=== PATIENT | female | born 1985 | race Caucasian/White ===

== ENCOUNTER 2017-07-13 21:16 | Emergency (ER) | payer OTHER, SELFPAY ==
[2017-07-13 21:33] VITALS: BP 119/81; PULSE 77; RESP 16; TEMP 36.8; O2SAT 99; BMI 27.3
--- NOTE | 2017-07-13 21:54 | PC.NURSE ---
reports a dull ache chest pain feeling right of medial behind breast. denies sob, vision changes, n/v/d. normal sinus rhythm
[2017-07-14 00:10] VITALS: BP 118/77; PULSE 82
[2017-07-14 00:13] VITALS: TEMP 36.5
--- NOTE | 2017-07-14 00:36 | ED_ITS ---
HPI - Chest Pain General Chief Complaint: Chest Pain Stated Complaint: CHEST DISCOMFORT RIGHT BREAST IS PLUGGED BREAST AK History of Present Illness HPI narrative: HPI 31-year-old female presents for evaluation of one day of intermittent, fleeting , sharp right sided chest/breast pain in the setting of 2+ days of concern for clogged right breast duct with right lateral nodular firmness and scant blood in her breast milk. Patient reports that 3 days ago she a 24-hour period of nausea, vomiting, diarrhea that self resolved. Patient reports that she has been massaging her right breast, using warm compresses, and expressing/pumping will with improving symptoms. Medical history is notable for anticardiolipin antibody disease requiring heparin during but no further interventions. Patient denies a history of DVT, PE, hemoptysis, mobilization, leg swelling, calf pain, leg trauma. M/S/F/SocHx notable for: please see HPI; remainder reviewed with patient and in chart. ROS: Negative constitutional, eye, cardiovascular, pulmonary, GI, , MSK, skin , neurologic, psychiatric, endocrine unless noted in the HPI. Exam Gen: Pleasant, non-toxic appearing, resting comfortably. HEENT: NC, AT, PEERL, EOMI. Resp: Clear to auscultation bilaterally, normal work of breathing, no accessory muscle usage. Card: Regular rate and rhythm with no murmurs, rubs, or gallops, extremities warm and well perfused. No chest wall tenderness palpation. GI: Non-tender to palpation throughout all quadrants, no focal tenderness at McBurney's point, negative Whatley's sign, non-distended, no rebound or guarding. : No suprapubic tenderness to palpation. MSK/skin: chaperoned exam with visually normal right breast. Breast exam notable for a palpable subcutaneous linear cord like structure that is mildly tender but is without palpable warmth, crepitus, or fluctuance is on the right set of breast extending towards aerola. No breast discharge. Vascular: both calves of equal size and nontender to palpation bilaterally. Neuro: AO x 3, no facial asymmetry, vision and hearing WNL. Psych: Mood and affect appropriate. Labs / Imaging: EKG: SR 83 bpm, no NH segment depressions, QRS 87 ms, no ST segment elevations or depressions, no LBBB. MDM Previous chart, nursing note, labs, imaging, and vitals reviewed. A: 31-year-old female presents for evaluation of one day of intermittent, fleeting, sharp right sided chest/breast pain in the setting of 2+ days of concern for clogged right breast duct with right lateral nodular firmness and scant blood in her breast milk. DDx & Evaluation: exam is consistent with a history of blood breast duct, no evidence of a galactocele or mastitis. With respect to alternate causes of the paitent's chest pain the history (very brief, sharp right sided stabbing chest wall pain) is highly inconsistent with ACS, pericarditis, or myocarditis; given the lack of further risk factors no further investigations presently warranted. EKG obtained by nursing protocol prior to evaluation, press enter equal bilaterally, no evidence of pulmonary infection, doubt PE. Patient discharged with instructions to use NSAIDs, warm compresses, and continue expressing milk and to follow-up with her PCP as needed. Impression: point breast duct. (please reference below for remainder of encounter information) PERC negative (age >= 50 - N, HR >= 100 - N, SaO2 < 95 - N, prior DVT - N, trauma or surgery in last 4 weeks - N, hemoptysis - N, exogenous estrogen - N, unilateral leg swelling - N). Related Data Previous Rx's Medication Instructions Recorded progesterone micronized 100 mg PO BID #60 cap 04/10/17 Allergies Allergy/AdvReac Type Severity Reaction Status Date / Time codeine [CODEINE] Allergy Intermediate Unverified 06/06/17 12:22 PENDING SALE TO [facility] Social History Smoking Status: Never smoker Exam Initial Vital Signs Initial Vital Signs: Vital Signs Temperature 98.3 F 07/13/17 21:33 Pulse Rate 77 07/13/17 21:33 Respiratory Rate 16 07/13/17 21:33 Blood Pressure 119/81 H 07/13/17 21:33 Pulse Oximetry 99 07/13/17 21:33 Course Vital Signs - 8 hr 07/13/17 21:33 07/14/17 00:10 07/14/17 00:13 Temperature 98.3 F 97.7 F Pulse Rate 77 82 Respiratory Rate 16 Blood Pressure 119/81 H Blood Pressure [Right Arm] 118/77 Pulse Oximetry 99 Discharge Plan Departure Prescriptions: No Action progesterone micronized 100 MG capsule 100 mg PO BID Qty: 60 RF: 3
== END 2017-07-14 00:46 | disposition home or self-care (01) ==
PROVIDERS: Emergency Provider Emergency Medicine; Family Provider Obstetrics & Gynecology; PCP Obstetrics & Gynecology
DX: N64.89 Other specified disorders of breast (principal)
CPT/HCPCS: 93005; 99282

== ENCOUNTER 2017-07-14 14:36 | Observation (INO) | payer OTHER, SELFPAY ==
--- NOTE | 2017-07-14 14:39 | ED.ABDPAIN ---
HPI - Abdominal Pain <DIONNA Fierro - Last Filed: 07/14/17 22:09> General Chief Complaint: Abdominal Pain Stated Complaint: 'SEVERE ABD PAIN' Time Seen by Provider: 07/14/17 14:39 History of Present Illness HPI narrative: 31-year-old female here for complaint of having pain into her right upper quadrant/epigastric area over the past few days. She reports increased pain to that area after eating. She had some aches this morning when pain came on and worsened earlier today. She denies any fevers or chills. No nausea or vomiting. She denies any urinary symptoms. Last bowel movement was yesterday and was normal. She denies any flank pain. She denies any trauma to the abdominal area. No other concerns or complaints. Related Data Previous Rx's Medication Instructions Recorded hydromorphone 2 mg PO Q4H PRN #20 tab MDD Six 07/15/17 ondansetron 4 mg PO Q6H PRN #10 tab MDD 4 07/15/17 pantoprazole 40 mg PO DAILY #30 tab 07/28/17 Allergies Allergy/AdvReac Type Severity Reaction Status Date / Time codeine [CODEINE] AdvReac Severe Anaphylaxis Verified 07/28/17 16:54 Review of Systems <DIONNA Fierro - Last Filed: 07/14/17 22:09> Constitutional Denies chills, Denies fever(s), Denies lethargy and Denies weakness Eyes Denies change in vision, Denies eye discharge, Denies irritation and Denies loss of vision Cardiovascular Denies chest pain, Denies irregular heart rhythm, Denies lightheadedness, Denies palpitations, Denies dyspnea, Denies dyspnea on exertion and Denies orthopnea Respiratory Denies cough, Denies dyspnea, Denies dyspnea on exertion and Denies wheezing Gastrointestinal Gastrointestinal: Reports abdominal pain Genitourinary Denies hematuria, Denies flank pain, Denies urinary incontinence and Denies urinary urgency Integumentary/Breasts Denies pruritus, Denies erythema, Denies rash and Denies wounds Neurologic Denies loss of vision and Denies weakness Endocrine Denies palpitations Allergic/Immunologic Denies wheezing Exam <DIONNA Fierro - Last Filed: 07/14/17 22:09> Initial Vital Signs Initial Vital Signs: Vital Signs Temperature 98.2 F 07/14/17 15:03 Pulse Rate 100 H 07/14/17 15:03 Respiratory Rate 14 07/14/17 15:03 Blood Pressure 126/79 H 07/14/17 15:03 Pulse Oximetry 100 07/14/17 15:03 Const General: cooperative and well developed Nutritional Appearance: well nourished Orientation: alert, awake, oriented x3 and not confused [facility] Mouth: oral mucosae normal and moist mucous membranes Eyes General: appearance normal, both eyes and all related structures Eyelids: eyelids normal Conjunctivae: conjunctivae normal Sclera: sclerae normal Pupils: PERRL EOM: EOM intact bilaterally Resp Effort & Inspection: normal respiratory effort, able to speak in complete sentences, no respiratory distress and no use of accessory muscles Auscultation: clear to auscultation bilaterally, no rales, no rhonchi and no wheezes Cardio Rate: regular rate Rhythm: regular rhythm Heart Sounds: no click, no gallops, no murmurs and no rubs GI Inspection: normal to inspection Palpation: soft, No guarding, No hernia, No mass, No pulsatile mass and tender (Tenderness to epigastric area) Auscultation: normal bowel sounds General: No CVA tenderness Skin General: no rashes or lesions noted, No jaundice and No petechiae <Silvano Guevara DO - Last Filed: 08/02/17 07:35> Initial Vital Signs Initial Vital Signs: Vital Signs Temperature 98.2 F 07/14/17 15:03 Pulse Rate 100 H 07/14/17 15:03 Respiratory Rate 14 07/14/17 15:03 Blood Pressure 126/79 H 07/14/17 15:03 Pulse Oximetry 100 07/14/17 15:03 Course <DIONNA Fierro - Last Filed: 07/14/17 22:09> Orders Ordered: Discontinued Medications Acetaminophen (Tylenol) 325 mg PO NOW PRN PRN Reason: Pain, Mild Albuterol (Ventolin) 2.5 mg INH NOW PRN PRN Reason: Coughing, Wheezing, Dyspnea Bupivacaine HCl (Sensorcaine 0.5% (Pf)) 30 ml INJ NOW ONE Stop: 07/15/17 11:18 Last Admin: 07/15/17 11:29 Dose: 20 ml Docusate Sodium (Colace) 100 mg PO DAILY PAO Fentanyl (Sublimaze) 25 mcg IV Q5MIN PRN PRN Reason: Pain, Mild Last Admin: 07/15/17 12:14 Dose: 25 mcg Admin: 07/15/17 12:08 Dose: 25 mcg Fentanyl (Sublimaze) 50 mcg IV Q5MIN PRN PRN Reason: Pain, Moderate Fentanyl (Sublimaze) 100 mcg IV Q5MIN PRN PRN Reason: Pain, Severe Hydromorphone HCl (Dilaudid) 0.25 mg IV Q5MIN PRN PRN Reason: Pain, Mild Hydromorphone HCl (Dilaudid) 0.5 mg IV Q5MIN PRN PRN Reason: Pain, Moderate Hydromorphone HCl (Dilaudid) 1 mg IV Q5MIN PRN PRN Reason: Pain, Severe Hydromorphone HCl (Dilaudid) 2 mg PO Q4HR PRN PRN Reason: Pain, Severe Last Admin: 07/15/17 14:04 Dose: 2 mg Hydromorphone HCl (Dilaudid) 0.5 mg IV NOW ONE Stop: 07/14/17 15:29 Last Admin: 07/14/17 17:10 Dose: Hydromorphone HCl (Dilaudid) 0.5 mg IV NOW ONE Stop: 07/14/17 17:16 Last Admin: 07/14/17 17:10 Dose: 0.5 mg Hydromorphone HCl (Dilaudid) 2 mg IV Q4HR PRN PRN Reason: Pain, Moderate Promethazine HCl 25 mg/ Sodium (Chloride) 51 mls @ 204 mls/hr IV NOW PRN PRN Reason: Nausea And Vomiting Sodium Chloride (Normal Saline 0.45%) 1,000 mls @ 100 mls/hr IV CONT PAO Sodium Chloride (Normal Saline 0.9%) 1,000 mls @ 150 mls/hr IV CONT PAO Last Infusion: 07/14/17 18:22 Dose: 0 mls/hr Admin: 07/14/17 17:04 Dose: 150 mls/hr Sodium Chloride (Normal Saline 0.9%) 1,000 mls @ 125 mls/hr IV CONT PAO Last Admin: 07/15/17 04:24 Dose: 125 mls/hr Infusion: 07/15/17 03:36 Dose: 125 mls/hr Admin: 07/14/17 19:36 Dose: 125 mls/hr Piperacillin/Tazobactam/Dextrose (Zosyn) 3.375 gm in 50 mls @ 100 mls/hr IV Q6H PAO Last Admin: 07/15/17 06:59 Dose: 100 mls/hr Infusion: 07/15/17 00:16 Dose: 100 mls/hr Admin: 07/14/17 23:46 Dose: 100 mls/hr Infusion: 07/14/17 21:38 Dose: 0 mls/hr Admin: 07/14/17 19:55 Dose: 100 mls/hr Lactated Ringer's (Lactated Ringers) 1,000 mls @ 42 mls/hr IV CONT PAO Last Infusion: 07/15/17 12:18 Dose: 0 mls/hr Admin: 07/15/17 09:30 Dose: 42 mls/hr Lidocaine/Epinephrine (Xylocaine 1% W/Epi) 20 ml INJ NOW ONE Stop: 07/15/17 11:18 Last Admin: 07/15/17 11:28 Dose: 20 ml Lorazepam (Ativan) 0.25 mg IV NOW PRN PRN Reason: Anxiety Meperidine HCl (Demerol) 25 mg IV Q5MIN PRN PRN Reason: Pain and shivering Metoclopramide HCl (Reglan) 10 mg IV NOW PRN PRN Reason: Nausea And Vomiting Ondansetron HCl (Zofran) 4 mg IV NOW PRN PRN Reason: Nausea And Vomiting Ondansetron HCl (Zofran) 4 mg IV NOW ONE Stop: 07/14/17 15:29 Last Admin: 07/14/17 17:03 Dose: 4 mg Oxycodone/Acetaminophen (Percocet 5/325) 1 tab PO Q30MIN PRN PRN Reason: Mild or moderate pain Vital Signs - 8 hr 07/14/17 15:03 07/14/17 16:07 07/14/17 18:14 Temperature 98.2 F 97.7 F Pulse Rate 100 H 73 87 Respiratory Rate 14 16 16 Blood Pressure 126/79 H 146/77 H Blood Pressure [Left Arm] 126/77 H Pulse Oximetry 100 100 07/14/17 21:20 Temperature 97.9 F Pulse Rate 76 Respiratory Rate 16 Blood Pressure 113/72 Blood Pressure [Left Arm] Pulse Oximetry 99 <Silvano Guevara, DO - Last Filed: 08/02/17 07:35> Orders Ordered: Discontinued Medications Acetaminophen (Tylenol) 325 mg PO NOW PRN PRN Reason: Pain, Mild Albuterol (Ventolin) 2.5 mg INH NOW PRN PRN Reason: Coughing, Wheezing, Dyspnea Bupivacaine HCl (Sensorcaine 0.5% (Pf)) 30 ml INJ NOW ONE Stop: 07/15/17 11:18 Last Admin: 07/15/17 11:29 Dose: 20 ml Docusate Sodium (Colace) 100 mg PO DAILY PAO Fentanyl (Sublimaze) 25 mcg IV Q5MIN PRN PRN Reason: Pain, Mild Last Admin: 07/15/17 12:14 Dose: 25 mcg Admin: 07/15/17 12:08 Dose: 25 mcg Fentanyl (Sublimaze) 50 mcg IV Q5MIN PRN PRN Reason: Pain, Moderate Fentanyl (Sublimaze) 100 mcg IV Q5MIN PRN PRN Reason: Pain, Severe Hydromorphone HCl (Dilaudid) 0.25 mg IV Q5MIN PRN PRN Reason: Pain, Mild Hydromorphone HCl (Dilaudid) 0.5 mg IV Q5MIN PRN PRN Reason: Pain, Moderate Hydromorphone HCl (Dilaudid) 1 mg IV Q5MIN PRN PRN Reason: Pain, Severe Hydromorphone HCl (Dilaudid) 2 mg PO Q4HR PRN PRN Reason: Pain, Severe Last Admin: 07/15/17 14:04 Dose: 2 mg Hydromorphone HCl (Dilaudid) 0.5 mg IV NOW ONE Stop: 07/14/17 15:29 Last Admin: 07/14/17 17:10 Dose: Hydromorphone HCl (Dilaudid) 0.5 mg IV NOW ONE Stop: 07/14/17 17:16 Last Admin: 07/14/17 17:10 Dose: 0.5 mg Hydromorphone HCl (Dilaudid) 2 mg IV Q4HR PRN PRN Reason: Pain, Moderate Promethazine HCl 25 mg/ Sodium (Chloride) 51 mls @ 204 mls/hr IV NOW PRN PRN Reason: Nausea And Vomiting Sodium Chloride (Normal Saline 0.45%) 1,000 mls @ 100 mls/hr IV CONT PAO Sodium Chloride (Normal Saline 0.9%) 1,000 mls @ 150 mls/hr IV CONT PAO Last Infusion: 07/14/17 18:22 Dose: 0 mls/hr Admin: 07/14/17 17:04 Dose: 150 mls/hr Sodium Chloride (Normal Saline 0.9%) 1,000 mls @ 125 mls/hr IV CONT PAO Last Admin: 07/15/17 04:24 Dose: 125 mls/hr Infusion: 07/15/17 03:36 Dose: 125 mls/hr Admin: 07/14/17 19:36 Dose: 125 mls/hr Piperacillin/Tazobactam/Dextrose (Zosyn) 3.375 gm in 50 mls @ 100 mls/hr IV Q6H PAO Last Admin: 07/15/17 06:59 Dose: 100 mls/hr Infusion: 07/15/17 00:16 Dose: 100 mls/hr Admin: 07/14/17 23:46 Dose: 100 mls/hr Infusion: 07/14/17 21:38 Dose: 0 mls/hr Admin: 07/14/17 19:55 Dose: 100 mls/hr Lactated Ringer's (Lactated Ringers) 1,000 mls @ 42 mls/hr IV CONT PAO Last Infusion: 07/15/17 12:18 Dose: 0 mls/hr Admin: 07/15/17 09:30 Dose: 42 mls/hr Lidocaine/Epinephrine (Xylocaine 1% W/Epi) 20 ml INJ NOW ONE Stop: 07/15/17 11:18 Last Admin: 07/15/17 11:28 Dose: 20 ml Lorazepam (Ativan) 0.25 mg IV NOW PRN PRN Reason: Anxiety Meperidine HCl (Demerol) 25 mg IV Q5MIN PRN PRN Reason: Pain and shivering Metoclopramide HCl (Reglan) 10 mg IV NOW PRN PRN Reason: Nausea And Vomiting Ondansetron HCl (Zofran) 4 mg IV NOW PRN PRN Reason: Nausea And Vomiting Ondansetron HCl (Zofran) 4 mg IV NOW ONE Stop: 07/14/17 15:29 Last Admin: 07/14/17 17:03 Dose: 4 mg Oxycodone/Acetaminophen (Percocet 5/325) 1 tab PO Q30MIN PRN PRN Reason: Mild or moderate pain Vital Signs - 8 hr 07/14/17 15:03 07/14/17 16:07 07/14/17 18:14 Temperature 98.2 F 97.7 F Pulse Rate 100 H 73 87 Respiratory Rate 14 16 16 Blood Pressure 126/79 H 146/77 H Blood Pressure [Left Arm] 126/77 H Pulse Oximetry 100 100 07/14/17 21:20 Temperature 97.9 F Pulse Rate 76 Respiratory Rate 16 Blood Pressure 113/72 Blood Pressure [Left Arm] Pulse Oximetry 99 MDM - Abdominal Pain <DIONNA Fierro - Last Filed: 07/14/17 22:09> Lab Data Result diagrams: 07/14/17 17:00 07/14/17 17:00 Lab Results 07/14/17 07/14/17 Range/Units 17:00 17:00 WBC 14.0 H (4.5-11.0) X10^3/uL RBC 4.53 (4.0-5.2) X10^6/uL Hgb 13.2 (12.0-16.0) g/dL Hct 38.5 (36-46) % MCV 85.0 (80-100) fL MCH 29.1 (26-34) PG MCHC 34.2 (30-36) % RDW 13.3 (11.6-14.8) % Plt Count 327 (150-400) X10^3/uL Neut % (Auto) 77.5 H (50-75) % Lymph % (Auto) 16.5 L (25-40) % Sargent % (Auto) 3.9 (3-14) % Eos % (Auto) 1.7 L (2-4) % Baso % (Auto) 0.4 (0-2) % Neut # (Auto) 37675 H (6632-3007) /uL Sodium 140 (137-145) mmol/L Potassium 3.9 (3.4-5.1) mmol/L Chloride 101.0 (98-107) mmol/L Carbon Dioxide 24.0 (22-32) mmol/L BUN 13.0 (7-17) mg/dL Creatinine 0.50 L (0.52-1.04) mg/dL Estimated GFR > 60.0 (>60) mL/min BUN/Creatinine Ratio 26.0 H (6-22) Glucose 100 (70-100) mg/dL Calcium 11.1 H (8.4-10.2) mg/dL Total Bilirubin 0.5 (0.2-1.3) mg/dL AST 19 (14-36) IU/L ALT 24 (9-52) IU/L Alkaline Phosphatase 116 (38-126) U/L Total Protein 8.6 H (6.3-8.2) g/dL Albumin 4.7 (3.5-5.0) g/dL Globulin 3.9 (1.7-4.1) g/dL Albumin/Globulin Ratio 1.2 (1.0-2.8) Lipase 35 (23-300) U/L Imaging Data US - abdomen: Radiologist's impression: PROCEDURE: US ABDOMEN COMPLETE INDICATIONS: Epigastric pain TECHNIQUE: Real-time scanning was performed of the abdominal and retroperitoneal organs, with image documentation. COMPARISON: None. FINDINGS: Liver: Liver is normal in size and homogeneous in echotexture. Gallbladder: Demonstrates sludge and calculi within its lumen. Gallbladder wall is slightly thickened at 4 mm. Small amount of pericholecystic fluid is present. Biliary ducts: Intrahepatic bile ducts are non-dilated. Extrahepatic bile duct caliber measures 7 mm. Normal is 6-7 mm or less in diameter, or 10 mm or less post-cholecystectomy. Pancreas: Visualized portions of the pancreas are sonographically normal. Spleen: Spleen is normal in size and homogeneous in echotexture. Kidneys: Kidneys are normal in size and echotexture. Right kidney measures 10.7 cm long; left kidney measures 13.7 cm long. No hydronephrosis or nephrolithiasis. No solid masses. Aorta: Visualized aorta is normal in caliber at less than 3 cm. Iliacs: Proximal common iliac arteries are normal in caliber at less than 2.5 cm. IVC: Intrahepatic inferior vena cava is patent. Miscellaneous: No free abdominal fluid. IMPRESSION: 1. Findings suggestive of cholecystitis. Clinical correlation recommended. <Silvano Guevara, DO - Last Filed: 08/02/17 07:35> Lab Data Lab Results 07/14/17 07/14/17 Range/Units 17:00 17:00 WBC 14.0 H (4.5-11.0) X10^3/uL RBC 4.53 (4.0-5.2) X10^6/uL Hgb 13.2 (12.0-16.0) g/dL Hct 38.5 (36-46) % MCV 85.0 (80-100) fL MCH 29.1 (26-34) PG MCHC 34.2 (30-36) % RDW 13.3 (11.6-14.8) % Plt Count 327 (150-400) X10^3/uL Neut % (Auto) 77.5 H (50-75) % Lymph % (Auto) 16.5 L (25-40) % Sargent % (Auto) 3.9 (3-14) % Eos % (Auto) 1.7 L (2-4) % Baso % (Auto) 0.4 (0-2) % Neut # (Auto) 18234 H (2807-2972) /uL Sodium 140 (137-145) mmol/L Potassium 3.9 (3.4-5.1) mmol/L Chloride 101.0 (98-107) mmol/L Carbon Dioxide 24.0 (22-32) mmol/L BUN 13.0 (7-17) mg/dL Creatinine 0.50 L (0.52-1.04) mg/dL Estimated GFR > 60.0 (>60) mL/min BUN/Creatinine Ratio 26.0 H (6-22) Glucose 100 (70-100) mg/dL Calcium 11.1 H (8.4-10.2) mg/dL Total Bilirubin 0.5 (0.2-1.3) mg/dL AST 19 (14-36) IU/L ALT 24 (9-52) IU/L Alkaline Phosphatase 116 (38-126) U/L Total Protein 8.6 H (6.3-8.2) g/dL Albumin 4.7 (3.5-5.0) g/dL Globulin 3.9 (1.7-4.1) g/dL Albumin/Globulin Ratio 1.2 (1.0-2.8) Lipase 35 (23-300) U/L Discharge Plan Departure Patient Disposition: Admitted As Inpatient Discharge Date/Time: 07/14/17 18:27 Interventions: ED Discharge Assessment Last Done: 07/14/17 18:25 Admit Date/Time: 07/14/17 17:54 Admit Provider: Sakina Hopkins <Silvano Guevara DO - Last Filed: 08/02/17 07:35> Cosign ED Attending Coselsyature Attestation: I was immediately available in the department for consultation. This documentation has been reviewed and I agree with assessment and plan. Supervised by Silvano Guevara DO
[2017-07-14 15:03] VITALS: BP 126/79; PULSE 100; RESP 14; TEMP 36.8; O2SAT 100
--- NOTE | 2017-07-14 15:29 | DI.US.S_ITS ---
PROCEDURE: US ABDOMEN COMPLETE INDICATIONS: Epigastric pain TECHNIQUE: Real-time scanning was performed of the abdominal and retroperitoneal organs, with image documentation. COMPARISON: None. FINDINGS: Liver: Liver is normal in size and homogeneous in echotexture. Gallbladder: Demonstrates sludge and calculi within its lumen. Gallbladder wall is slightly thickened at 4 mm. Small amount of pericholecystic fluid is present. Biliary ducts: Intrahepatic bile ducts are non-dilated. Extrahepatic bile duct caliber measures 7 mm. Normal is 6-7 mm or less in diameter, or 10 mm or less post-cholecystectomy. Pancreas: Visualized portions of the pancreas are sonographically normal. Spleen: Spleen is normal in size and homogeneous in echotexture. Kidneys: Kidneys are normal in size and echotexture. Right kidney measures 10.7 cm long; left kidney measures 13.7 cm long. No hydronephrosis or nephrolithiasis. No solid masses. Aorta: Visualized aorta is normal in caliber at less than 3 cm. Iliacs: Proximal common iliac arteries are normal in caliber at less than 2.5 cm. IVC: Intrahepatic inferior vena cava is patent. Miscellaneous: No free abdominal fluid. IMPRESSION: 1. Findings suggestive of cholecystitis. Clinical correlation recommended. Dictated by: Madeleine Salas M.D. on 07/14/2017 at 17:16 Approved by: Madeleine Salas M.D. on 07/14/2017 at 17:17
[2017-07-14 16:07] VITALS: BP 126/77; PULSE 73; RESP 16; O2SAT 100
[2017-07-14] MEDS: ONDANSETRON 4 MG/2 ML INJ IV (17:03)
[2017-07-14] MEDS: SODIUM CHLORIDE 0.9% 1,000 ML 150 ML IV (17:04)
[2017-07-14 17:08] LABS: Add Manual Diff / Slide Review NO; Basophils Percent Auto 0.4 % (0-2); Eosinophils Percent Auto 1.7 % (2-4); Hematocrit 38.5 % (36-46); Hemoglobin 13.2 g/dL (12.0-16.0); Lymphocytes Percent Auto 16.5 % (25-40); Mean Corpuscular HGB Conc 34.2 % (30-36); Mean Corpuscular Hemoglobin 29.1 PG (26-34); Monocytes Percent Auto 3.9 % (3-14); Neutrophils Absolute Auto 10900 /uL (3000-5900); Neutrophils Percent Auto 77.5 % (50-75); Platelet Count 327 X10^3/uL (150-400); Red Blood Cell Count 4.53 X10^6/uL (4.0-5.2); Red Cell Distribution Width 13.3 % (11.6-14.8)
[2017-07-14] MEDS: HYDROMORPHONE 0.5 MG INJ IV (17:10)
[2017-07-14 17:19] LABS: Alanine Aminotransferase 24 IU/L (9-52); Albumin 4.7 g/dL (3.5-5.0); Albumin Globulin Ratio 1.2 (1.0-2.8); Alkaline Phosphatase 116 U/L (38-126); Aspartate Aminotransferase 19 IU/L (14-36); Bilirubin Total 0.5 mg/dL (0.2-1.3); Calcium 11.1 mg/dL (8.4-10.2); Estimated Glomerular Filt Rate > 60.0 mL/min (>60); Globulin 3.9 g/dL (1.7-4.1); Glucose 100 mg/dL (70-100); HEMOLYSIS < 15 (0-50); Lipase 35 U/L (23-300); Potassium 3.9 mmol/L (3.4-5.1); Sodium 140 mmol/L (137-145); Total Protein 8.6 g/dL (6.3-8.2)
[2017-07-14 18:14] VITALS: BP 146/77; PULSE 87; RESP 16; TEMP 36.5
[2017-07-14 18:20] VITALS: BMI 28.1
[2017-07-14] MEDS: SODIUM CHLORIDE 0.9% 1,000 ML 125 ML IV (19:36)
[2017-07-14] MEDS: PIPERACILLIN-TAZO 3.375 GM/50 ML FROZ.PIGGY IV ×2 (19:55→23:46)
[2017-07-14 21:20] VITALS: BP 113/72; PULSE 76; RESP 16; TEMP 36.6; O2SAT 99
[2017-07-15] VITALS (13 sets, daily range): BP systolic 115–132; BP diastolic 72–92; PULSE 71–119; RESP 11–20; TEMP 36.2–36.6; O2SAT 97–100; BMI 28.1
--- NOTE | 2017-07-15 | PATH_ITS ---
[facility] Accession Number: [id number] . 01 Material submitted: . GALL BLADDER AND CONTENTS . 02 Diagnosis: Gallbladder: Cholelithiasis with associated chronic cholecystitis. V/07/18/2017 . 02 Electronically signed: . Mike José MD, Pathologist NPI- [id number] . 01 Gross description: . Received in formalin, labeled 1-gallbladder + contents, is an intact gallbladder (length- 8.5 cm, diameter-2.5 cm) with desir, smooth, shiny serosa and a patent cystic duct. No lymph nodes are identified. The lumen contains green, firm, gelatinous bile and multiple yellow, round, friable calculi (4.1 x 3.5 x 1.3 cm in aggregate, each approximately 0.3 x 0.2 x 0.1 cm). The mucosa is farah with a trabeculated, rough surface. The wall is up to 0.1 cm thick. No nodules, masses, or lesions are identified. Section code: (A1) cystic duct resection margin and two serial sections from the body; (A2) two longitudinal sections from the fundus. ([id number]) /FRR . 02 Pathologist provided ICD-10: K80.64 . 02 CPT . 379711 Performed at: 01 [facility] [address] [facility], [place], [place] [id number] MD Preet Mendez MD Phone: [phone] Performed at: 02 [facility] [address] [place], [place] [id number] MD Edmar Epperson MD Phone: [phone]
[2017-07-15] MEDS: SODIUM CHLORIDE 0.9% 1,000 ML 125 ML IV (04:24)
[2017-07-15] MEDS: PIPERACILLIN-TAZO 3.375 GM/50 ML FROZ.PIGGY IV (06:59)
--- NOTE | 2017-07-15 09:21 | PC.NURSE ---
0920 Pt gone to OR via bed. Voided prior to going.
[2017-07-15] MEDS: LACTATED RINGERS 1,000 ML 42 ML IV (09:30)
--- NOTE | 2017-07-15 10:34 | SUR.PREOP ---
Pt's left ring finger with swelling and redness, unable to remove wiith lotion, vasaline or floss. Dr. Mahan removed at bedside with cutters. Pt gave full consent to do so.
--- NOTE | 2017-07-15 11:11 | SUR.OPER ---
Supine on padded OR bed, head on pillow, safety belt at thigh, left arm padded and tucked at side. Right arm secured on padded arm oard <90 degrees abduction. Legs uncrossed. Tape over blanket to secure lower legs.
--- NOTE | 2017-07-15 11:22 | CM.DANOTE ---
DCP/Assessment: Reviewed chart. Patient is a 31yr old female admitted to [facility] with abdominal [facility]. Primary payor is 1)[employer]. No PCP listed [facility]ADLE REPAIRER listed is Dr. Goins. Attempted to meet with patient this AM to explain role of d/c strategic planner. Pt. currently off floor for surgery/lap gamaliel with Dr. Hopkins. Will attempt to see patient when she returns or in AM on 07-16-17. Per notes, patient resides with spouse/Mt in [place]. Appears to be I with all ADL's. P: Anticipate home when medically stable. THANG Khalil
[2017-07-15] MEDS: LIDOCAINE 1% W/EPI INJ 20 ML INJ (11:28)
[2017-07-15] MEDS: BUPIVACAINE 0.5% (PF) 30 ML VIAL INJ (11:29)
--- NOTE | 2017-07-15 11:46 | PM.HP.1 ---
History of Present Illness Chief complaint: 'SEVERE ABD PAIN' Narrative: Danica Gonzalez is a 31 year old female who presented to the emergency room yesterday afternoon complaining of gradually worsening right upper quadrant pain. She says the problem has been going on for several days but yesterday it became so severe that she felt she could not tolerate it any longer and presented to the emergency room. There she was diagnosed with acute cholecystitis and cholelithiasis. She has been admitted to my service for definitive management. [facility], [facility] Medical History History of urinary retention (Acute) Social History household members: spouse Smoking Status: Never smoker Meds Home Medications Medication Instructions Recorded Confirmed Type No Known Home Medications 07/14/17 07/14/17 History Generic Name Dose Route Start Last Admin Trade Name Freq PRN Reason Stop Dose Admin Acetaminophen 325 mg 07/15/17 11:33 Tylenol PO NOW PRN Pain, Mild Albuterol 2.5 mg 07/15/17 11:33 Ventolin INH NOW PRN Coughing, Wheezing, Dyspnea Fentanyl 25 mcg 07/15/17 11:27 Sublimaze IV Q5MIN PRN Pain, Mild Fentanyl 50 mcg 07/15/17 11:27 Sublimaze IV Q5MIN PRN Pain, Moderate Fentanyl 100 mcg 07/15/17 11:27 Sublimaze IV Q5MIN PRN Pain, Severe Hydromorphone HCl 0.25 mg 07/15/17 11:27 Dilaudid IV Q5MIN PRN Pain, Mild Hydromorphone HCl 0.5 mg 07/15/17 11:27 Dilaudid IV Q5MIN PRN Pain, Moderate Hydromorphone HCl 1 mg 07/15/17 11:27 Dilaudid IV Q5MIN PRN Pain, Severe Hydromorphone HCl 2 mg 07/14/17 17:41 Dilaudid IV Q4HR PRN Pain, Moderate Promethazine HCl 25 mg/ Sodium 51 mls @ 204 mls/hr 07/15/17 11:33 Chloride IV NOW PRN Nausea And Vomiting Sodium Chloride 1,000 mls @ 125 mls/hr 07/14/17 17:45 05/20/18 04:24 Normal Saline 0.9% IV 125 mls/hr CONT PAO Administration Piperacillin/Tazobactam/Dextrose 3.375 gm in 50 mls @ 100 mls/hr 07/14/17 17:45 07/15/17 06:59 Zosyn IV 100 mls/hr Q6H PAO Administration Lactated Ringer's 1,000 mls @ 42 mls/hr 07/15/17 10:45 07/15/17 09:30 Lactated Ringers IV 42 mls/hr CONT PAO Administration Lorazepam 0.25 mg 07/15/17 11:33 Ativan IV NOW PRN Anxiety Meperidine HCl 25 mg 07/15/17 11:27 Demerol IV Q5MIN PRN Pain and shivering Metoclopramide HCl 10 mg 07/15/17 11:33 Reglan IV NOW PRN Nausea And Vomiting Ondansetron HCl 4 mg 07/15/17 11:33 Zofran IV NOW PRN Nausea And Vomiting Oxycodone/Acetaminophen 1 tab 07/15/17 11:33 Percocet 5/325 PO Q30MIN PRN Mild or moderate pain Allergies Allergy/AdvReac Type Severity Reaction Status Date / Time codeine [CODEINE] AdvReac Severe Anaphylaxis Verified 07/14/17 18:26 Review of Systems Review of Systems All systems reviewed & are unremarkable except as noted in HPI and below Exam Vital Signs (past 8 hours): Vital Signs - 8 hr 07/15/17 06:01 07/15/17 07:40 07/15/17 09:30 Temperature 97.2 F L 97.6 F 98 F Pulse Rate 89 71 72 Respiratory Rate 16 18 16 Blood Pressure 117/79 118/75 128/92 H Pulse Oximetry 98 100 100 Pulse Oximetry 100 Oxygen Delivery Method Room Air Oxygen Flow Rate 0 Narrative Exam Narrative: Very pleasant, well-nourished, and well-developed lady in no acute distress. She is concerned that her wedding ring is too tight and would like to have it removed. HEENT: Normocephalic atraumatic, pupils equal round reactive to light accommodation with anicteric sclera Lungs: Clear to auscultation bilaterally Heart: Regular rate and rhythm without murmur Abdomen: Soft, tender to palpation in the right upper quadrant and right flank region. Less tender in the midepigastrium. Voluntary guarding but no true rebound. No abdominal incisions or hernias appreciated. Active bowel sounds. Extremities: Warm and well perfused without edema. Palpable posterior tibial pulses. Objective Labs Result Diagrams: 07/14/17 17:00 07/14/17 17:00 Labs: Laboratory Results - last 24 hr 07/14/17 07/14/17 17:00 17:00 WBC 14.0 H RBC 4.53 Hgb 13.2 Hct 38.5 MCV 85.0 MCH 29.1 MCHC 34.2 RDW 13.3 Plt Count 327 Neut % (Auto) 77.5 H Lymph % (Auto) 16.5 L [place] % (Auto) 3.9 Eos % (Auto) 1.7 L Baso % (Auto) 0.4 Neut # (Auto) 34677 H Sodium 140 Potassium 3.9 Chloride 101.0 Carbon Dioxide 24.0 BUN 13.0 Creatinine 0.50 L Estimated GFR > 60.0 BUN/Creatinine Ratio 26.0 H Glucose 100 Calcium 11.1 H Total Bilirubin 0.5 AST 19 ALT 24 Alkaline Phosphatase 116 Total Protein 8.6 H Albumin 4.7 Globulin 3.9 Albumin/Globulin Ratio 1.2 Lipase 35 Assessment & Plan Plan: Plan: Very pleasant and generally healthy 31-year-old lady with acute cholecystitis confirmed on ultrasound and physical examination. We discussed the risks and benefits of laparoscopic cholecystectomy the patient has expressed a desire to have the procedure. Quality VTE Deep Vein Thrombosis/Pulmonary Embolism Present on Admission: No
--- NOTE | 2017-07-15 11:49 | P.HP_ITS ---
History of Present Illness Chief complaint: 'SEVERE ABD PAIN' Narrative: Danica Gonzalez is a 31 year old female who presented to the emergency room yesterday afternoon complaining of gradually worsening right upper quadrant pain. She says the problem has been going on for several days but yesterday it became so severe that she felt she could not tolerate it any longer and presented to the emergency room. There she was diagnosed with acute cholecystitis and cholelithiasis. She has been admitted to my service for definitive management. [facility] Medical History History of urinary retention (Acute) Social History household members: spouse Smoking Status: Never smoker Meds Home Medications Medication Instructions Recorded Confirmed Type No Known Home Medications 07/14/17 07/14/17 History Generic Name Dose Route Start Last Admin Trade Name Freq PRN Reason Stop Dose Admin Acetaminophen 325 mg 07/15/17 11:33 Tylenol PO NOW PRN Pain, Mild Albuterol 2.5 mg 07/15/17 11:33 Ventolin INH NOW PRN Coughing, Wheezing, Dyspnea Fentanyl 25 mcg 07/15/17 11:27 Sublimaze IV Q5MIN PRN Pain, Mild Fentanyl 50 mcg 07/15/17 11:27 Sublimaze IV Q5MIN PRN Pain, Moderate Fentanyl 100 mcg 07/15/17 11:27 Sublimaze IV Q5MIN PRN Pain, Severe Hydromorphone HCl 0.25 mg 07/15/17 11:27 Dilaudid IV Q5MIN PRN Pain, Mild Hydromorphone HCl 0.5 mg 07/15/17 11:27 Dilaudid IV Q5MIN PRN Pain, Moderate Hydromorphone HCl 1 mg 07/15/17 11:27 Dilaudid IV Q5MIN PRN Pain, Severe Hydromorphone HCl 2 mg 07/14/17 17:41 Dilaudid IV Q4HR PRN Pain, Moderate Promethazine HCl 25 mg/ Sodium 51 mls @ 204 mls/hr 07/15/17 11:33 Chloride IV NOW PRN Nausea And Vomiting Sodium Chloride 1,000 mls @ 125 mls/hr 07/14/17 17:45 05/20/18 04:24 Normal Saline 0.9% IV 125 mls/hr CONT PAO Administration Piperacillin/Tazobactam/Dextrose 3.375 gm in 50 mls @ 100 mls/hr 07/14/17 17: 45 07/15/17 06:59 Zosyn IV 100 mls/hr Q6H PAO Administration Lactated Ringer's 1,000 mls @ 42 mls/hr 07/15/17 10:45 07/15/17 09:30 Lactated Ringers IV 42 mls/hr CONT PAO Administration Lorazepam 0.25 mg 07/15/17 11:33 Ativan IV NOW PRN Anxiety Meperidine HCl 25 mg 07/15/17 11:27 Demerol IV Q5MIN PRN Pain and shivering Metoclopramide HCl 10 mg 07/15/17 11:33 Reglan IV NOW PRN Nausea And Vomiting Ondansetron HCl 4 mg 07/15/17 11:33 Zofran IV NOW PRN Nausea And Vomiting Oxycodone/Acetaminophen 1 tab 07/15/17 11:33 Percocet 5/325 PO Q30MIN PRN Mild or moderate pain Allergies Allergy/AdvReac Type Severity Reaction Status Date / Time codeine [CODEINE] AdvReac Severe Anaphylaxis Verified 07/14/17 18:26 Review of Systems Review of Systems All systems reviewed & are unremarkable except as noted in HPI and below Exam Vital Signs (past 8 hours): Vital Signs - 8 hr 3 07/15/17 06:01 07/15/17 07:40 07/15/17 09:30 Temperature 97.2 F L 97.6 F 98 F Pulse Rate 89 71 72 Respiratory Rate 16 18 16 Blood Pressure 117/79 118/75 128/92 H Pulse Oximetry 98 100 100 Pulse Oximetry 100 Oxygen Delivery Method Room Air Oxygen Flow Rate 0 Narrative Exam Narrative: Very pleasant, well-nourished, and well-developed lady in no acute distress. She is concerned that her wedding ring is too tight and would like to have it removed. HEENT: Normocephalic atraumatic, pupils equal round reactive to light accommodation with anicteric sclera Lungs: Clear to auscultation bilaterally Heart: Regular rate and rhythm without murmur Abdomen: Soft, tender to palpation in the right upper quadrant and right flank region. Less tender in the midepigastrium. Voluntary guarding but no true rebound. No abdominal incisions or hernias appreciated. Active bowel sounds. Extremities: Warm and well perfused without edema. Palpable posterior tibial pulses. Objective Labs Result Diagrams: 07/14/17 17:00 07/14/17 17:00 Labs: Laboratory Results - last 24 hr 07/14/17 07/14/17 17:00 17:00 WBC 14.0 H RBC 4.53 Hgb 13.2 Hct 38.5 MCV 85.0 MCH 29.1 MCHC 34.2 RDW 13.3 Plt Count 327 Neut % (Auto) 77.5 H Lymph % (Auto) 16.5 L [place] % (Auto) 3.9 Eos % (Auto) 1.7 L Baso % (Auto) 0.4 Neut # (Auto) 17561 H Sodium 140 Potassium 3.9 Chloride 101.0 Carbon Dioxide 24.0 BUN 13.0 Creatinine 0.50 L Estimated GFR > 60.0 BUN/Creatinine Ratio 26.0 H Glucose 100 Calcium 11.1 H Total Bilirubin 0.5 AST 19 ALT 24 Alkaline Phosphatase 116 Total Protein 8.6 H Albumin 4.7 Globulin 3.9 Albumin/Globulin Ratio 1.2 Lipase 35 Assessment & Plan Plan: Plan: Very pleasant and generally healthy 31-year-old lady with acute cholecystitis confirmed on ultrasound and physical examination. We discussed the risks and benefits of laparoscopic cholecystectomy the patient has expressed a desire to have the procedure. Quality VTE Deep Vein Thrombosis/Pulmonary Embolism Present on Admission: No
--- NOTE | 2017-07-15 11:49 | PM.OP.1 ---
Operative Date/Time/Diagnoses - Date of procedure: 07/15/17 Time of procedure: 11:49 Pre-op diagnosis: Acute cholecystitis and cholelithiasis Post-op diagnosis: same Procedure & Clinicians Procedure: Laparoscopic cholecystectomy Same procedure as scheduled: Yes Surgeon: Sakina Hopkins Anesthesia Type: General (Bertoni) Operative Notes Findings: Acutely inflamed gallbladder with significant edema within the wall. Closure Type: primary Specimen(s): other (Gallbladder to pathology in formalin) Estimated Blood Loss (mL): 20 Procedure in detail: After obtaining informed consent, the patient was brought to the operating room and placed in the supine position on the operating table. Following successful induction of general endotracheal anesthesia, appropriate padding of all bony prominences, and placement of appropriate monitors, the abdomen was prepped and draped in a standard surgical fashion. A timeout was held per AZOA protocol. Following infiltration with local anesthetic to create a field block, an incision was created superior to the umbilicus and carried down through the skin and subcutaneous tissue to reveal the fascia below. 2-0 Vicryl retention sutures are placed on either side of the midline and the abdomen was entered under direct vision using a 15 blade scalpel. A 10 mm blunt trocar was placed in the abdominal cavity and it was insufflated to 15 mm of Hg pressure. The patient was placed in reverse Trendelenburg position with the left side rotated toward the floor. A second 5 mm trocar was placed in the midepigastrium and 2 more in the right upper quadrant, again after infiltration with local anesthetic and under direct vision with the camera. The gallbladder was grasped in the fundus and elevated up over the liver. This revealed the cholecysto-hepatoduodenal ligament. The cystic duct and artery were carefully identified with gentle dissection. As we were able to clearly see the structures as well as the junction with the common duct; we elected not to perform a cholangiogram. 3 clips were placed proximally on the cystic duct and one distally. The duct was divided between these clips. 2 clips were placed proximally on the cystic artery and one distally. The artery was divided between these clips. The gallbladder was then liberated from its bed in the liver using Bovie cautery. It was placed in an Endoscopic bag and removed via the umbilical port. The camera was returned to the abdominal cavity and the operative site examined carefully. Hemostasis was obtained with cautery. The abdomen was irrigated copiously with warm saline solution and then aspirated free of all particulate matter and fluid. Trochars were then removed under direct vision and the abdomen desufflated by giving the patient a Valsalva maneuver. The umbilical incision was closed with interrupted Vicryl suture and Monocryl sutures were placed in the skin. The remaining skin incisions were closed with Monocryl suture. All sponge, needle, and instrument counts were correct at the conclusion of the case. The patient was allowed to awaken from anesthesia without difficulty and taken to the post anesthesia care unit in good condition. Complications: none Condition: stable Disposition: PACU Plan for aftercare: Discharge to home this afternoon in her care family Follow up with me in 2 weeks
[2017-07-15] MEDS: fentaNYL 100 MCG/2 ML INJ 25 MCG IV ×2 (12:08→12:14)
--- NOTE | 2017-07-15 13:10 | PC.NURSE ---
1230 Pt returned to room 212 via bed from recovery, Pt A,A&O x 3. sl patent. On r/a 97 % sats. 4 lap sites to abd, closed /secured w/dermabond. Spouse at bedside.n VS wnl.
--- NOTE | 2017-07-15 13:26 | PC.NURSE ---
1330 Pt oob to BRP, voided w/o diff. Denies pain, taking in juice, soup w/o nausea.
[2017-07-15] MEDS: HYDROMORPHONE 2 MG TABLET PO (14:04)
== END 2017-07-15 14:45 | disposition home or self-care (01) ==
LOC: ED 14:45 → AC 07-15 12:09
PROVIDERS: Admitting Provider Surgery; Emergency Provider Nurse Practitioner Family; Family Provider Obstetrics & Gynecology; PCP Obstetrics & Gynecology; Visit Provider Surgery
PROC: 0FT44ZZ Resection of Gallbladder, Percutaneous Endoscopic Approach (ICD-10-PCS; CPT 47562; principal; 2017-07-15 10:00)
DX: K80.00 Calculus of gallbladder with acute cholecystitis without obstruction (principal)
CPT/HCPCS: 47562; 36591; 76700; 80053; 83690; 85025; 96361; 96374; 96375; 96376; 99283; 99284; G0378; J1100; J1170; J1885; J2250; J2405; J2543; J2704; J3010

== ENCOUNTER 2017-07-28 09:36 | Emergency (ER) | payer OTHER, SELFPAY ==
[2017-07-28 09:54] VITALS: BP 130/89; PULSE 90; RESP 13; TEMP 36.9; O2SAT 99
[2017-07-28 11:37] VITALS: BP 113/77; PULSE 70; RESP 16; O2SAT 100
[2017-07-28 11:37] LABS: Add Manual Diff / Slide Review NO; Basophils Percent Auto 0.4 % (0-2); Eosinophils Percent Auto 0.4 % (2-4); Hemoglobin 12.6 g/dL (12.0-16.0); Lymphocytes Percent Auto 14.8 % (25-40); Mean Corpuscular HGB Conc 34.1 % (30-36); Mean Corpuscular Hemoglobin 28.9 PG (26-34); Mean Corpuscular Volume 84.9 fL (80-100); Monocytes Percent Auto 4.4 % (3-14); Neutrophils Absolute Auto 10900 /uL (3000-5900); Platelet Count 326 X10^3/uL (150-400); Red Blood Cell Count 4.35 X10^6/uL (4.0-5.2); Red Cell Distribution Width 13.7 % (11.6-14.8); White Blood Cell Count 13.6 X10^3/uL (4.5-11.0)
[2017-07-28 11:49] LABS: Alanine Aminotransferase 50 IU/L (9-52); Albumin 4.5 g/dL (3.5-5.0); Albumin Globulin Ratio 1.4 (1.0-2.8); Alkaline Phosphatase 124 U/L (38-126); Aspartate Aminotransferase 59 IU/L (14-36); Bilirubin Total 0.4 mg/dL (0.2-1.3); Blood Urea Nitrogen 12 mg/dL (7-17); Calcium 10.1 mg/dL (8.4-10.2); Carbon Dioxide 26 mmol/L (22-32); Chloride 104 mmol/L (98-107); Estimated Glomerular Filt Rate > 60.0 mL/min (>60); Globulin 3.3 g/dL (1.7-4.1); Glucose 100 mg/dL (70-100); HEMOLYSIS 16 (0-50); Lipase 30 U/L (23-300); Potassium 4.1 mmol/L (3.4-5.1); Sodium 141 mmol/L (137-145); Total Protein 7.8 g/dL (6.3-8.2)
[2017-07-28 12:47] VITALS: BP 115/80; PULSE 72; RESP 16; O2SAT 100
--- NOTE | 2017-07-28 13:17 | ED.ABDPAIN ---
HPI - Abdominal Pain General Chief Complaint: Abdominal Pain Stated Complaint: stomach pain History of Present Illness HPI narrative: HPI 32-year-old female presents 2 weeks post operatively from a laparoscopic cholecystectomy for evaluation of 30 minutes of moderately severe epigastric pain that radiated to the back was identical to the symptoms she experienced prior to her cholecystectomy. Symptoms occurred this morning. Symptoms lasted 30 minutes before spontaneously resolving. Patient denies chest pain, shortness of breath, has had negative prior cardiac evaluation course of her work up for her biliary disease, and has no known family history of early cardiovascular disease. No history of DVT or PE. M/S/F/SocHx notable for: please see HPI; remainder reviewed with patient and in chart. ROS: Negative constitutional, eye, cardiovascular, pulmonary, GI, , MSK, skin, neurologic, psychiatric, endocrine unless noted in the HPI. Exam Gen: Pleasant, non-toxic appearing, resting comfortably. HEENT: NC, AT, PEERL, EOMI. Resp: Clear to auscultation bilaterally, normal work of breathing, no accessory muscle usage. Card: Regular rate and rhythm with no murmurs, rubs, or gallops, extremities warm and well perfused. GI: Non-tender to palpation throughout all quadrants, no focal tenderness at McBurney's point, negative Whatley's sign, non-distended, no rebound or guarding. Well healed laparoscopic incision sites the umbilicus and right upper abdomen. : No suprapubic tenderness to palpation. MSK: No visible deformities, strength and tone without visually appreciable deficit. Skin: Normal color with no visible lesions. Neuro: AO x 3, no facial asymmetry, vision and hearing WNL. Psych: Mood and affect appropriate. Labs / Imaging: WBC 13.6, hemoglobin 12.6, sodium 141, potassium 41, total bilirubin 0.4, AST 59, ALT 50, ALP 124, lipase 30. MDM Previous chart, nursing note, labs, imaging, and vitals reviewed. A: 32-year-old female presents 2 weeks post operatively from a laparoscopic cholecystectomy for evaluation of 30 minutes of moderately severe epigastric pain that radiated to the back was identical to the symptoms she experienced prior to her cholecystectomy. DDx & Evaluation: patient with a benign abdominal exam, nonspecific mild leukocytosis, liver enzymes as well as lipase are within clinically acceptable limits. Operative note reviewed, no interoper of client urogram, this raises the possibility of a retained stone, however there appears to be no obstructive process at the present time. Discussed the case with Dr. Restrepo, the general surgeon on-call, recommended prompt outpatient follow-up without further ED imaging. Pathology above the diaphragm also considered, however the symptoms, unremarkable exam, prior evaluation, and absence of family history no further evaluations presently indicated with respect to possible cardiac etiology, pneumonia, or PE (patient without hypoxemia, tachycardia, shortness of breath, chest pain, and had a very brief episode that spontaneously resolved). Patient remained asymptomatic throughout ED course. Impression: epigastric pain. (please reference below for remainder of encounter information) Related Data Home Medications Medication Instructions Recorded Confirmed No Known Home Medications 07/14/17 07/14/17 Previous Rx's Medication Instructions Recorded hydromorphone 2 mg PO Q4H PRN #20 tab MDD Six 07/15/17 ondansetron 4 mg PO Q6H PRN #10 tab MDD 4 07/15/17 Allergies Allergy/AdvReac Type Severity Reaction Status Date / Time codeine [CODEINE] AdvReac Severe Anaphylaxis Verified 07/14/17 18:26 [facility] Social History household members: spouse Smoking Status: Never smoker Exam Initial Vital Signs Initial Vital Signs: Vital Signs Temperature 98.5 F 07/28/17 09:54 Pulse Rate 90 07/28/17 09:54 Respiratory Rate 13 07/28/17 09:54 Blood Pressure 130/89 H 07/28/17 09:54 Pulse Oximetry 99 07/28/17 09:54 Course Orders Ordered: ED Orders 07/28/17 11:30 Complete Blood Count AUTO DIFF Stat Comprehensive Metabolic Panel Stat Lipase Stat Vital Signs - 8 hr 07/28/17 09:54 07/28/17 11:37 07/28/17 12:47 Temperature 98.5 F Pulse Rate 90 70 72 Respiratory Rate 13 16 16 Blood Pressure 130/89 H Blood Pressure [Left Arm] 113/77 115/80 Pulse Oximetry 99 100 100 MDM - Abdominal Pain Lab Data Result diagrams: 07/28/17 11:30 07/28/17 11:30 Lab Results 07/28/17 07/28/17 Range/Units 11:30 11:30 WBC 13.6 H (4.5-11.0) X10^3/uL RBC 4.35 (4.0-5.2) X10^6/uL Hgb 12.6 (12.0-16.0) g/dL Hct 37.0 (36-46) % MCV 84.9 (80-100) fL MCH 28.9 (26-34) PG MCHC 34.1 (30-36) % RDW 13.7 (11.6-14.8) % Plt Count 326 (150-400) X10^3/uL Neut % (Auto) 80.0 H (50-75) % Lymph % (Auto) 14.8 L (25-40) % [place] % (Auto) 4.4 (3-14) % Eos % (Auto) 0.4 L (2-4) % Baso % (Auto) 0.4 (0-2) % Neut # (Auto) 46375 H (5546-5894) /uL Sodium 141 (137-145) mmol/L Potassium 4.1 (3.4-5.1) mmol/L Chloride 104 (98-107) mmol/L Carbon Dioxide 26 (22-32) mmol/L BUN 12 (7-17) mg/dL Creatinine 0.50 L (0.52-1.04) mg/dL Estimated GFR > 60.0 (>60) mL/min BUN/Creatinine Ratio 24.0 H (6-22) Glucose 100 (70-100) mg/dL Calcium 10.1 (8.4-10.2) mg/dL Total Bilirubin 0.4 (0.2-1.3) mg/dL AST 59 H (14-36) IU/L ALT 50 (9-52) IU/L Alkaline Phosphatase 124 (38-126) U/L Total Protein 7.8 (6.3-8.2) g/dL Albumin 4.5 (3.5-5.0) g/dL Globulin 3.3 (1.7-4.1) g/dL Albumin/Globulin Ratio 1.4 (1.0-2.8) Lipase 30 (23-300) U/L Discharge Plan Departure Prescriptions: No Action No Known Home Medications RF: 0 hydromorphone 2 mg tablet 2 mg PO Q4H MDD Six PRN (Reason: pain) Qty: 20 RF: 0 ondansetron 4 mg tablet,disintegrating 4 mg PO Q6H MDD 4 PRN (Reason: nausea and vomiting) Qty: 10 RF: 0
== END 2017-07-28 13:45 | disposition home or self-care (01) ==
PROVIDERS: Emergency Provider Emergency Medicine; Family Provider Obstetrics & Gynecology; PCP Obstetrics & Gynecology
DX: R10.13 Epigastric pain (principal)
CPT/HCPCS: 36591; 80053; 83690; 85025; 99282; 99283

== ENCOUNTER 2017-07-28 16:36 | Emergency (ER) | payer OTHER, SELFPAY ==
[2017-07-28 16:54] VITALS: BP 123/87; PULSE 83; RESP 15; TEMP 36.9; O2SAT 99; BMI 28.1
--- NOTE | 2017-07-28 17:55 | DI.US.S_ITS ---
PROCEDURE: US ABDOMEN LIMITED INDICATIONS: RUQ pain s/p cholecystectomy - retained stone? TECHNIQUE: Real-time focused scanning was performed of the abdomen, with image documentation. COMPARISON: [facility], , US ABDOMEN COMPLETE, 07/14/2017, 16:13. FINDINGS: Normal hepatic size and echogenicity. The gallbladder is surgically absent. Extrahepatic bile duct measures 8 mm where seen. No choledocholithiasis identified. The pancreas is normal where seen. IMPRESSION: 1. Cholecystectomy. 2. Extrahepatic bile duct measures 8 mm where seen which is normal in a cholecystectomy patient. No obstructing lesions or choledocholithiasis identified. Dictated by: Abelardo Bess M.D. on 07/28/2017 at 18:59 Approved by: Abelardo Bess M.D. on 07/28/2017 at 19:01
--- NOTE | 2017-07-28 17:55 | DI.RAD.S_ITS ---
PROCEDURE: XR CHEST 2V INDICATIONS: epigastric pain TECHNIQUE: 2 views of the chest were acquired. COMPARISON: None. FINDINGS: Surgical changes and devices: None. Lungs and pleura: No pleural effusions or pneumothorax. Lungs are clear. Mediastinum: Mediastinal contours are normal. Heart size is normal. Bones and chest wall: No suspicious bony abnormalities. Soft tissues appear unremarkable. IMPRESSION: No radiographic evidence of acute cardiopulmonary pathology. Dictated by: Abelardo Bess M.D. on 07/28/2017 at 19:13 Approved by: Abelardo Bess M.D. on 07/28/2017 at 19:13
--- NOTE | 2017-07-28 18:00 | ED.ABDPAIN ---
HPI - Abdominal Pain General Chief Complaint: Abdominal Pain Stated Complaint: STOMACH PAIN History of Present Illness HPI narrative: HPI 32-year-old female presents for repeat evaluation several hours after ED discharged earlier today when she was evaluated for 30 minutes of moderately severe epigastric pain that radiated to the back was identical to the symptoms she experienced prior a cholecystectomy that she had 2 weeks ago. Patient was asymptomatic throughout her ED course and after laboratory studies, exam, and surgical phone consultation the patient was discharged, patient recurrence of symptoms at home or drinking liquids in return for further evaluation. The repeat symptoms are identical to the symptoms experienced earlier today with the exception that they continue to linger slightly with a 2/10 pain in the epigastrium radiating to the back. Patient denies chest pain, shortness of breath, has had negative prior cardiac evaluation course of her work up for her biliary disease, and has no known family history of early cardiovascular disease. No history of DVT or PE. M/S/F/SocHx notable for: please see HPI; remainder reviewed with patient and in chart. ROS: Negative constitutional, eye, cardiovascular, pulmonary, GI, , MSK, skin, neurologic, psychiatric, endocrine unless noted in the HPI. Exam Gen: Pleasant, non-toxic appearing, resting comfortably. HEENT: NC, AT, PEERL, EOMI. Resp: Clear to auscultation bilaterally, normal work of breathing, no accessory muscle usage. Card: Regular rate and rhythm with no murmurs, rubs, or gallops, extremities warm and well perfused. GI: Non-tender to palpation throughout all quadrants, no focal tenderness at McBurney's point, negative Whatley's sign, non-distended, no rebound or guarding. Well healed laparoscopic incision sites the umbilicus and right upper abdomen. : No suprapubic tenderness to palpation. MSK: No visible deformities, strength and tone without visually appreciable deficit. Skin: Normal color with no visible lesions. Neuro: AO x 3, no facial asymmetry, vision and hearing WNL. Psych: Mood and affect appropriate. Labs / Imaging: pending. MDM Previous chart, nursing note, labs, imaging, and vitals reviewed. A: 32-year-old female presents for repeat evaluation several hours after ED discharged earlier today when she was evaluated for 30 minutes of moderately severe epigastric pain that radiated to the back was identical to the symptoms she experienced prior a cholecystectomy that she had 2 weeks ago. DDx: Postcholecystectomy syndrome (biliary injury, retained cystic duct stone, common bile duct stone) sphincter of Oddi dysfunction, ulcer, myocarditis, pericarditis, ACS, dissection, gastritis, ulcer, GERD. Evaluation: patient resting comfortably at time of repeat evaluation. Concern exists for missed initial diagnosis versus the need for deeper investigation of a previously suspected diagnosis (i.e. a postcholecystectomy syndrome). At the time of patient care transfer to the overnight provider and EKG, chest x-ray, CBC, CMP, lipase, troponin, and right upper quadrant ultrasound are pending. Also pending is a GI cocktail to evaluate for possible gastritis/GERD/ulcer. Impression: epigastric pain (please reference below for remainder of encounter information) Related Data Home Medications Medication Instructions Recorded Confirmed No Known Home Medications 07/14/17 07/14/17 Previous Rx's Medication Instructions Recorded hydromorphone 2 mg PO Q4H PRN #20 tab MDD Six 07/15/17 ondansetron 4 mg PO Q6H PRN #10 tab MDD 4 07/15/17 Allergies Allergy/AdvReac Type Severity Reaction Status Date / Time codeine [CODEINE] AdvReac Severe Anaphylaxis Verified 07/28/17 16:54 [facility] Social History household members: spouse Smoking Status: Current some day smoker Exam Initial Vital Signs Initial Vital Signs: Vital Signs Temperature 98.5 F 07/28/17 16:54 Pulse Rate 83 07/28/17 16:54 Respiratory Rate 15 07/28/17 16:54 Blood Pressure 123/87 H 07/28/17 16:54 Pulse Oximetry 99 07/28/17 16:54 Course Orders Ordered: ED Orders 07/28/17 17:55 US abdomen limited Stat XR chest 2V Stat Complete Blood Count AUTO DIFF Stat Comprehensive Metabolic Panel Stat Lipase Stat Troponin I Stat EKG-12 Lead Stat Discontinued Medications Al Hydrox/Mg Hydrox/Simethicone 20 ml/ Lidocaine HCl 15 ml 0 ml PO NOW ONE Stop: 07/28/17 17:56 Vital Signs - 8 hr 07/28/17 16:54 Temperature 98.5 F Pulse Rate 83 Respiratory Rate 15 Blood Pressure 123/87 H Pulse Oximetry 99 MDM - Abdominal Pain Lab Data Result diagrams: 07/28/17 17:45 07/28/17 17:45 Discharge Plan Departure Prescriptions: No Action No Known Home Medications RF: 0 hydromorphone 2 mg tablet 2 mg PO Q4H MDD Six PRN (Reason: pain) Qty: 20 RF: 0 ondansetron 4 mg tablet,disintegrating 4 mg PO Q6H MDD 4 PRN (Reason: nausea and vomiting) Qty: 10 RF: 0
[2017-07-28 18:02] LABS: Add Manual Diff / Slide Review NO; Basophils Percent Auto 0.4 % (0-2); Eosinophils Percent Auto 0.5 % (2-4); Hematocrit 37.4 % (36-46); Hemoglobin 12.4 g/dL (12.0-16.0); Lymphocytes Percent Auto 14.4 % (25-40); Mean Corpuscular HGB Conc 33.2 % (30-36); Mean Corpuscular Hemoglobin 28.1 PG (26-34); Mean Corpuscular Volume 84.7 fL (80-100); Monocytes Percent Auto 5.3 % (3-14); Neutrophils Absolute Auto 11300 /uL (3000-5900); Neutrophils Percent Auto 79.4 % (50-75); Platelet Count 320 X10^3/uL (150-400); Red Blood Cell Count 4.41 X10^6/uL (4.0-5.2); Red Cell Distribution Width 13.6 % (11.6-14.8); White Blood Cell Count 14.2 X10^3/uL (4.5-11.0)
[2017-07-28 18:07] LABS: Alanine Aminotransferase 71 IU/L (9-52); Albumin 4.5 g/dL (3.5-5.0); Albumin Globulin Ratio 1.3 (1.0-2.8); Alkaline Phosphatase 132 U/L (38-126); Aspartate Aminotransferase 79 IU/L (14-36); Bilirubin Total 0.5 mg/dL (0.2-1.3); Blood Urea Nitrogen 11 mg/dL (7-17); Carbon Dioxide 22 mmol/L (22-32); Chloride 104 mmol/L (98-107); Estimated Glomerular Filt Rate > 60.0 mL/min (>60); Globulin 3.4 g/dL (1.7-4.1); Glucose 104 mg/dL (70-100); HEMOLYSIS < 15 (0-50); Lipase 31 U/L (23-300); Potassium 3.9 mmol/L (3.4-5.1); Sodium 140 mmol/L (137-145); Total Protein 7.9 g/dL (6.3-8.2)
[2017-07-28] MEDS: MAG HYDROX/ALUMINUM/SIMETH SUS 20 ML, LIDOCAINE VISCOUS 2% 15 ML PO (18:12)
[2017-07-28 18:32] LABS: Troponin I < 0.012 ng/mL (0.01-0.034)
[2017-07-28] MEDS: PANTOPRAZOLE 40 MG VIAL IV (20:54)
[2017-07-28 21:00] VITALS: BP 119/75
[2017-07-28 21:21] VITALS: BP 119/75; PULSE 78; RESP 15; O2SAT 98
== END 2017-07-28 21:22 | disposition home or self-care (01) ==
PROVIDERS: Emergency Medicine; Emergency Provider Emergency Medicine; Family Provider Obstetrics & Gynecology; PCP Obstetrics & Gynecology
DX: R10.13 Epigastric pain (principal)
CPT/HCPCS: 36591; 71046; 76705; 80053; 83690; 84484; 85025; 93005; 96374; 99282; 99285; C9113

== ENCOUNTER → 2017-08-03 10:38 | Outpatient (CLI) | payer OTHER, SELFPAY ==
[2017-07-14 18:20] VITALS: BMI 28.1
--- NOTE | 2017-08-03 | DI.MRI.S_ITS ---
PROCEDURE: MR ABDOMEN WO CON INDICATIONS: abdominal pain after chocystectomy TECHNIQUE: Coronal HASTE through the abdomen, axial 2-D FLASH in- and ead-mo-rximi, and breath-hold T2 FSE with fat saturation through the biliary system and pancreas. Oblique coronal and axial thin-slice HASTE, radial thick-slab HASTE centered on the extrahepatic bile ducts. Intravenous secretin: Not requested. COMPARISON: [facility], , ABDOMEN COMPLETE, 07/14/2017, 16:13. [facility], , ABDOMEN LIMITED, 07/28/2017, 18:40. FINDINGS: Image quality: Excellent. Pancreas and biliary system: Intra- and extra-hepatic biliary ducts are moderately dilated with the extrahepatic common duct measuring up to 1.2 cm in maximal diameter and intrahepatic ducts also unusually prominent for a young patient of age 32. Pancreas is normal in morphology, without adjacent soft tissue edema. Pancreatic duct is normal in caliber, without developmental anomalies. Gallbladder has been resected, reportedly 3 weeks ago, and previously documented to contain both sludge and stones prior to cholecystectomy. Multiple pulse sequences show what appears to be a small filling defect within the distal common bile duct near the ampulla, measuring an estimated 6 mm craniocaudad and 5 mm in axial dimension. Other solid organs: Liver is normal in size. Spleen is normal in size. No adrenal nodules. Both kidneys are normal in size, without hydronephrosis. Nodes and vessels: No retroperitoneal or mesenteric adenopathy by size criteria. Aorta and inferior vena cava are normal in size. Bowel and peritoneum: Unenhanced bowel loops are normal in caliber. No free fluid. Lung bases: No basal pleural effusions. Heart size is normal. Bones and soft tissues: No ventral hernias. Bone marrow is of normal overall signal. IMPRESSION: 5 x 6 mm suspected distal common bile duct calculus in a patient who is 3 weeks out from cholecystectomy. The calculus is identified at the ampullary margin of the distal common duct which measures up to 1.2 cm in maximal dimension. The intrahepatic bile ducts are unusually prominent in size also. Please correlate with quantitative liver function tests to assist in confirming potential occlusive or intermittently occlusive distal common duct stone. ERCP may become necessary. Dictated by: Adalberto Scott M.D. on 08/03/2017 at 14:24 Approved by: Adalberto Scott M.D. on 08/03/2017 at 14:40
== END ==
PROVIDERS: Family Provider Obstetrics & Gynecology; PCP Obstetrics & Gynecology; Visit Provider Surgery
DX: K83.8 Other specified diseases of biliary tract (principal); R10.9 Unspecified abdominal pain; Z90.49 Acquired absence of other specified parts of digestive tract
CPT/HCPCS: 74181

== ENCOUNTER → 2018-01-14 11:06 | Outpatient (CLI) | payer OTHER, SELFPAY ==
[2018-01-14 11:48] LABS: Add Manual Diff / Slide Review NO; Basophils Percent Auto 0.3 % (0-2); Eosinophils Percent Auto 0.7 % (2-4); Hematocrit 37.7 % (36-46); Hemoglobin 12.7 g/dL (12.0-16.0); Lymphocytes Percent Auto 22.7 % (25-40); Mean Corpuscular HGB Conc 33.8 % (30-36); Mean Corpuscular Hemoglobin 29.1 PG (26-34); Monocytes Percent Auto 4.3 % (3-14); Neutrophils Absolute Auto 7400 /uL (3000-5900); Platelet Count 338 X10^3/uL (150-400); Red Blood Cell Count 4.38 X10^6/uL (4.0-5.2); Red Cell Distribution Width 13.1 % (11.6-14.8); White Blood Cell Count 10.3 X10^3/uL (4.5-11.0)
[2018-01-14 13:19] LABS: Appearance Urine UA CLEAR; Bilirubin Urine UA NEGATIVE (NEGATIVE); Color Urine UA YELLOW; Glucose Urine UA NEGATIVE (Normal); Ketones Urine UA NEGATIVE (NEGATIVE); Leukocyte Esterase Urine UA 1+ (NEGATIVE); Nitrite Urine UA NEGATIVE (Negative); Occult Blood Urine UA NEGATIVE (Negative); Protein Urine UA NEGATIVE (Negative); Specific Gravity Urine UA 1.015 (1.000-1.035); Urobilinogen Urine UA 0.2 E.U./dL (0.2); pH Urine UA 5.5 (4.5-8.0)
[2018-01-14 13:25] LABS: HIV 1 and 2 Antibody NEGATIVE (NEGATIVE); Hep C Virus Ab w/Reflex Quant NEGATIVE s/c (NEGATIVE); Hepatitis B Surface Antigen NEGATIVE s/c (NEGATIVE); Rubella Antibody IgG 12.7 IU/mL (>15)
[2018-01-14 13:49] LABS: Bacteria Urine Moderate (10-30); Culture Indicated Urine Specimen Cultured; RBC Urine 0-1/HPF (0-5/HPF); Squamous Epithelial Cell Urine 1-5 /HPF; Transitional Epi Cells Urine 1-5/HPF (0-5/HPF); WBC Urine 5-10/HPF (0-5/HPF)
[2018-01-15 11:12] LABS: RPR Screen Nonreactive (Nonreactive)
[2018-01-15 14:53] LABS: HSV 2 IGG AB < 0.90 index (< 0.90); HSV1IGG < 0.90 index (< 0.90)
== END ==
PROVIDERS: Family Provider Obstetrics & Gynecology; PCP Obstetrics & Gynecology; Visit Provider Obstetrics & Gynecology
DX: Z34.81 Encounter for supervision of other normal pregnancy, first trimester (principal); Z3A.01 Less than 8 weeks gestation of pregnancy
CPT/HCPCS: 36415; 80055; 81003; 81015; 86695; 86696; 86703; 86787; 86803; 86850; 86900; 86901; 87086

== ENCOUNTER 2018-02-27 21:58 | Emergency (ER) | payer OTHER, MEDICAID, SELFPAY ==
[2018-02-27 22:09] VITALS: BP 143/89; PULSE 138; RESP 15; TEMP 36.3; O2SAT 98; BMI 25.0
--- NOTE | 2018-02-27 22:20 | ED_ITS ---
HPI - Female Genitourinary General Chief complaint: Urogenital-Female Stated complaint: STATES BLADDER RETENTION,14 WEEKS PREG Time Seen by Provider: 02/27/18 22:19 Source: patient Mode of arrival: ambulatory Limitations: no limitations History of Present Illness HPI Narrative: Patient is a 32-year-old female who presents with urinary retention. She states that she is 14 weeks and has not urinated for number of hours she is quite uncomfortable. She often gets urinary retention with pregnancies. She states that she has had a Monsalve catheter placed before. She denies any fever. She actually had an ultrasound with her OB today. She denies any vaginal bleeding MD Complaint: dysuria Related Data Previous Rx's Medication Instructions Recorded progesterone micronized 100 mg 100 mg PO BID #60 cap 12/11/17 capsule enoxaparin 40 mg/0.4 mL 40 mg SUBCUT DAILY #12 ml 01/02/18 subcutaneous syringe doxylamine 10 mg-pyridoxine (vit 1 tab PO .bid prn #20 tab 01/14/18 B6) 10 mg tablet,delayed release ondansetron 4 mg disintegrating 4 mg PO Q6H PRN #20 tab 01/14/18 tablet fluconazole 150 mg tablet 150 mg PO ONCE #1 tab 02/08/18 Allergies Allergy/AdvReac Type Severity Reaction Status Date / Time codeine [CODEINE] AdvReac Severe Anaphylaxis Verified 02/27/18 22:09 Review of Systems Review of Systems GENERAL: Denies chills,fever HEENT: Denies throat pain RESPIRATORY: Denies dyspnea, cough, wheezing CARDIOVASCULAR: Denies chest pain, palpitations GASTROINTESTINAL: Denies nausea, vomiting : See HPI MUSCULOSKELETAL: Denies extremity pain, injury SKIN: No rash, no laceration, no pruritus NEUROLOGIC: Denies weakness, dizziness, headache, numbness 8 point review of systems is negative except for those stated above and HPI PFSH Medical History Gallstone of bile duct with obstruction (Resolved 2017) Phospholipid antibody syndrome affecting (Chronic 09/13/15) History of recurrent ear infection (Chronic) History of urinary retention (Chronic) Acne (Resolved) History of multiple miscarriages (Resolved 2012) Surgical History S/P cholecystectomy (Resolved 07/15/17) Anesthesia (Resolved) Social History household members: spouse Smoking Status: Current some day smoker Exam Initial Vital Signs Initial Vital Signs: Vital Signs Temperature 97.3 F L 02/27/18 22:09 Pulse Rate 138 H 02/27/18 22:09 Respiratory Rate 15 02/27/18 22:09 Blood Pressure 143/89 H 02/27/18 22:09 Pulse Oximetry 98 02/27/18 22:09 GENERAL: Well-appearing, well-nourished and in no acute distress. HEENT: Head atraumatic,EOMI, pupils reactive, face symmetric CARDIOVASCULAR: Regular rate and rhythm without murmurs, rubs or gallops. RESPIRATORY: Breath sounds equal bilaterally, no wheezes rales or rhonchi. ABDOMEN: Soft, nontender. Normoactive bowel sounds all 4 quadrants. No guarding or rebound. EXTREMITIES: Normal range of motion, no clubbing or edema. Neurovascularly intact NEUROLOGICAL: Alert and oriented x4.Normal gait and speech SKIN: Warm, dry, no laceration, no petechiae, no rashes or lesions. Course Orders Ordered: ED Orders 02/27/18 23:06 Urinalysis and Microscopic Stat Vital Signs - 8 hr 02/27/18 22:09 02/27/18 23:07 02/27/18 23:11 Temperature 97.3 F L 97.3 F L Pulse Rate 138 H 138 H 92 H Respiratory Rate 15 15 17 Blood Pressure 143/89 H 143/89 H Blood Pressure [Left Arm] 117/61 Pulse Oximetry 98 98 100 MDM - Female Genitourinary Lab Data Urine Dip Bedside Urine Glucose Negative Bedside Urine Bilirubin - Negative Bedside Urine Ketone - Negative Urine Specific [place] 1.010 Bedside Urine Occult Blood - Negative Bedside Urine pH 6.0 Bedside Urine Protein - Negative Bedside Urine Urobilinogen - Negative Bedside Urine Nitrite - Negative Bedside Urine Leukocytes - Negative Esterase MDM Narrative Medical decision making narrative: Heart rate has improved back to normal just with placement of Monsalve catheter and relief of urine. She is feeling overall much better. No sign of infection. She had an ultrasound with OB today. History of urinary retention this is similar to previous episodes. Discharge Plan Departure Patient Disposition: Home Clinical Impression: Urinary retention Discharge Date/Time: 02/27/18 23:27 Interventions: ED Discharge Assessment Last Done: 02/27/18 23:25 Instructions: How to Care for Your Monsalve Catheter -- Female, DI for Urinary Retention in Women Activity Restrictions/Additional Instructions: *You have been diagnosed with urinary retention *What to do: Keep Monsalve catheter in place for at least 24-48 hours. Please see your obstetrician gynecologist for removal of Monsalve catheter *Continue to take medications as directed *Follow up with your primary care provider in 2-3 days, call OBGYN tomorrow for removal of Monsalve catheter *Return to ER if you should have abdominal pain, vaginal bleeding, fever or any new, worsening or concerning symptoms Prescriptions: No Action progesterone micronized 100 mg capsule 100 mg PO BID Qty: 60 RF: 3 enoxaparin [Lovenox] 40 mg/0.4 mL syringe 40 mg SUBCUT DAILY Qty: 12 RF: 6 ondansetron [Zofran ODT] 4 mg tablet,disintegrating 4 mg PO Q6H PRN (Reason: nausea and vomiting) Qty: 20 RF: 0 doxylamine-pyridoxine (vit B6) [Diclegis] 10-10 mg tablet,delayed release (DR/ EC) 1 tab PO .bid prn Qty: 20 RF: 0 fluconazole [Diflucan] 150 mg tablet 150 mg PO ONCE Qty: 1 RF: 0 Referrals: Ines Goins MD [Primary Care Provider] -
[2018-02-27 23:07] VITALS: BP 143/89; PULSE 138; RESP 15; TEMP 36.3; O2SAT 98; BMI 25.0
[2018-02-27 23:11] VITALS: BP 117/61; PULSE 92; RESP 17; O2SAT 100
--- NOTE | 2018-02-27 23:12 | PC.NURSE ---
PT states 14 weeks , urinary retention, painfully full bladder. Reports this is third and has a hx of urinary retention during requiring sandoval cath. Pt denies DC or UTI symptoms.
== END 2018-02-27 23:27 | disposition home or self-care (01) ==
PROVIDERS: Emergency Provider Emergency Medicine; Family Provider Obstetrics & Gynecology; PCP Obstetrics & Gynecology
DX: R33.9 Retention of urine, unspecified (principal)
CPT/HCPCS: 81003; 99283

== ENCOUNTER → 2018-03-13 12:56 | Outpatient (CLI) | payer OTHER, MEDICAID, SELFPAY ==
[2018-03-19 12:44] LABS: AFP, Serum 27.6 ng/mL; Calc Gestational Age 16.3; Cigarette Smoker N; Donated Egg NOT GIVEN; Donor Egg Age NOT GIVEN; Estriol, Free 0.81 ng/mL; Inhibin A, Dimeric 56 pg/mL; Maternal Weight 165 lbs; Number of Fetuses 1; Previous Pregnancy Down Syndro NOT GIVEN; hCG, MoM 0.47; hCG, Serum 14.3 IU/mL
== END ==
PROVIDERS: Family Provider Obstetrics & Gynecology; PCP Obstetrics & Gynecology; Visit Provider Obstetrics & Gynecology
DX: Z3A.16 16 weeks gestation of pregnancy (principal)
CPT/HCPCS: 36415; 82105; 82677; 84702; 86336

== ENCOUNTER → 2018-04-10 15:56 | Outpatient (CLI) | payer OTHER, MEDICAID, SELFPAY ==
--- NOTE | 2018-04-10 15:57 | DI.US.S_ITS ---
PROCEDURE: US OB >= 14 WEEKS FETUS INDICATIONS: ANATOMIC SURVEY OUTSIDE/PRIOR DATING DATA: Last menstrual period (LMP): 11/18/17. LMP-based estimated date of delivery (MYRON): 08/26/18. First dating scan (date and location): 01/22/18. Estimated date of delivery (MYRON) from first dating scan: 08/23/18. TECHNIQUE: Real-time scanning was performed of the fetus, with image documentation and biometric measurements. Endovaginal scanning: No COMPARISON: [facility], , OB >= 14 WEEKS FETUS, 03/26/2018, 15:15. FINDINGS: General: A single living intrauterine gestation is present. Presentation: Transverse. Placenta: Placental position is anterior, without previa. Amniotic fluid index: 12.7 cm, normal range is 5-24 cm. heart rate: 152 beats per minute. Maternal cervical canal: 4.4 cm long. Normal lower limit is 2.5 cm. biometrics: Biparietal diameter: 21 weeks 0 days Head circumference: 21 weeks 0 days Abdominal circumference: 22 weeks 2 days Femur length: 20 weeks 5 days Estimated gestational age from initial scan: 20 weeks 5 days Composite gestational age from present scan: 21 weeks 1 day Estimated weight and percentile: 429 g; 85th percentile Measurement variability for biometric dating: +/- 7 days from 14 weeks to 15 weeks 6 days gestation, +/- 10 days from 16 weeks to 21 weeks 6 days gestation, +/- 2 weeks from 22 weeks to 27 weeks 6 days gestation, +/- 3 weeks for 28 weeks gestation or later. weight reference: 4500 g or EFW >90/95% is considered macrosomia or large for gestational age. EFW <10% is small for gestational age. EFW 5% or less is considered intra-uterine growth restriction. Anatomic survey: Neuro: Ventricles are non-dilated at less than 10 mm. Cisterna magna is normal at 3-11 mm. Cerebellum is normal in size and morphology. Nuchal skin fold: Normal at less than 6 mm between 14-21 weeks gestational age. Face: Nose and lips, facial profile are normal. Spine: No evidence for spina bifida. Heart: 4-chambered heart is present, with normal ventricular outflow tracts. Diaphragm: Diaphragm is intact. Stomach: Left-sided stomach is present. Kidneys: No hydronephrosis. Normal is less than 5 mm in 2nd trimester, less than 7 mm in 3rd trimester. Cord: 3-vessel cord has orthotopic insertion. Bladder: Normal in size. Extremities: All 4 extremities identified. IMPRESSION: 1. Single living IUP redemonstrated and interval growth is normal. 2. Normal anatomic survey. Dictated by: Bull Reyes [facility] Interpreted: Savanna Izquierdo MD on 04/10/2018 at 17:06 Approved by: Savanna Izquierdo MD, PhD on 04/10/2018 at 17:52
== END ==
PROVIDERS: Family Provider Obstetrics & Gynecology; PCP Obstetrics & Gynecology; Visit Provider Obstetrics & Gynecology
DX: Z34.82 Encounter for supervision of other normal pregnancy, second trimester (principal); Z3A.21 21 weeks gestation of pregnancy
CPT/HCPCS: 76811

== ENCOUNTER → 2018-05-21 11:00 | Outpatient (CLI) | payer OTHER, MEDICAID, SELFPAY ==
[2018-05-21 13:33] LABS: Hematocrit 33.3 % (36-46); Hemoglobin 11.4 g/dL (12.0-16.0)
[2018-05-21 14:29] LABS: GTT (PREG) 1 Hour PP 50gm Dose 113 mg/dL (76-139)
== END ==
PROVIDERS: PCP Obstetrics & Gynecology; Visit Provider Obstetrics & Gynecology
DX: Z34.82 Encounter for supervision of other normal pregnancy, second trimester (principal); R10.9 Unspecified abdominal pain
CPT/HCPCS: 36415; 82950; 85014; 85018

== ENCOUNTER 2018-07-03 13:24 | Observation (INO) | payer OTHER, MEDICAID, SELFPAY ==
--- NOTE | 2018-07-03 13:52 | PM.OBTRLD ---
Visit Information Visit Information Date of evaluation: 07/03/18 Primary OB Provider: Ines Goins On-call OB Provider: Tomasa Boykin Reason for Evaluation: Yes non-stress test non-stress test reason: other (Anti phospholipid syndrome) [facility] Medical History (Updated 07/03/18 @ 13:54 by Tomasa Boykin MD) Gallstone of bile duct with obstruction (Resolved 2017) Phospholipid antibody syndrome affecting (Chronic 09/13/15) History of recurrent ear infection (Chronic) History of urinary retention (Chronic) Acne (Resolved) History of multiple miscarriages (Resolved 2012) Surgical History (Updated 01/21/18 @ 14:50 by Jodie Steward) S/P cholecystectomy (Resolved 07/15/17) Anesthesia (Resolved) Family History (Updated 01/21/18 @ 14:45 by Jodie Steward) Mother Asthma Diabetes mellitus Hypertension Hyperlipidemia Influenza Father No problems noted. Brother Autism Grandfather No problems noted. Grandmother No problems noted. Grandfather Cancer Grandmother No problems noted. Social History household members: spouse Smoking Status: Current some day smoker Social History household members: spouse Smoking Status: Current some day smoker Evaluation Evaluation Baseline heart rate: 120 Variability: Moderate (11-25) monitor accelerations: Present monitor decelerations: Absent Diagnosis, Plan/Disposition Final Diagnosis (1) Phospholipid antibody syndrome affecting : Current Visit: Yes Status: Acute (2) 32 weeks gestation of : Current Visit: Yes Status: Acute Plan/Disposition Plan: Reactive nonstress test. Keep routine weekly visits and nonstress tests OB Disposition: home
== END 2018-07-03 14:04 | disposition home or self-care (01) ==
LOC: LABOR 13:26
PROVIDERS: Admitting Provider Specialist; Visit Provider Specialist
DX: O99.119 Other diseases of the blood and blood-forming organs and certain disorders involving the immune mechanism complicating pregnancy, unspecified trimester (principal); D68.61 Antiphospholipid syndrome; Z3A.32 32 weeks gestation of pregnancy
CPT/HCPCS: 59025; G0378; G0379

== ENCOUNTER 2018-07-09 09:53 | Outpatient (CLI) | payer OTHER, MEDICAID, SELFPAY | END 2018-07-09 11:09 | disposition home or self-care (01) | LOC: LABOR 11:08 → OB 07-10 14:00 | PROVIDERS: PCP Obstetrics & Gynecology; Visit Provider Obstetrics & Gynecology | DX: Z34.83 Encounter for supervision of other normal pregnancy, third trimester (principal); Z3A.33 33 weeks gestation of pregnancy | CPT/HCPCS: 59025; G0378; G0379 ==

== ENCOUNTER 2018-07-16 14:18 | Outpatient (CLI) | payer OTHER, MEDICAID, SELFPAY | END 2018-07-16 15:05 | disposition home or self-care (01) | LOC: LABOR 16:37 → OB 16:57 | PROVIDERS: PCP Obstetrics & Gynecology; Visit Provider Obstetrics & Gynecology | DX: Z34.83 Encounter for supervision of other normal pregnancy, third trimester (principal); Z3A.34 34 weeks gestation of pregnancy | CPT/HCPCS: 59025; G0378; G0379 ==

== ENCOUNTER 2018-07-23 14:12 | Outpatient (CLI) | payer OTHER, MEDICAID, SELFPAY ==
[2018-07-16 15:27] VITALS: BMI 28.1
== END 2018-07-23 15:00 | disposition home or self-care (01) ==
LOC: OB 07-24 14:07
PROVIDERS: PCP Obstetrics & Gynecology; Visit Provider Obstetrics & Gynecology
DX: Z34.83 Encounter for supervision of other normal pregnancy, third trimester (principal); Z3A.35 35 weeks gestation of pregnancy
CPT/HCPCS: 59025; G0378; G0379

== ENCOUNTER 2018-07-27 13:57 | Outpatient (CLI) | payer OTHER, MEDICAID, SELFPAY ==
[2018-07-16 15:27] VITALS: BMI 28.1
== END 2018-07-27 14:44 | disposition home or self-care (01) ==
LOC: LABOR 14:01 → OB 07-29 14:23
PROVIDERS: PCP Obstetrics & Gynecology
DX: Z34.83 Encounter for supervision of other normal pregnancy, third trimester (principal)
CPT/HCPCS: 59025; G0378; G0379

== ENCOUNTER 2018-07-31 15:18 | Outpatient (CLI) | payer OTHER, MEDICAID, SELFPAY ==
[2018-07-16 15:27] VITALS: BMI 28.1
== END 2018-07-31 16:30 | disposition home or self-care (01) ==
LOC: LABOR 15:52 → OB 08-06 12:07
PROVIDERS: PCP Obstetrics & Gynecology; Visit Provider Obstetrics & Gynecology
DX: Z34.83 Encounter for supervision of other normal pregnancy, third trimester (principal); Z3A.36 36 weeks gestation of pregnancy
CPT/HCPCS: 59025; 87653; G0378; G0379

== ENCOUNTER → 2018-07-31 16:46 | Outpatient (CLI) | payer OTHER, MEDICAID, SELFPAY ==
[2018-07-16 15:27] VITALS: BMI 28.1
[2018-08-01 14:51] LABS: Strep Grp B PCR POS for Grp B Strep
== END ==
PROVIDERS: PCP Obstetrics & Gynecology; Visit Provider Obstetrics & Gynecology
DX: Z34.83 Encounter for supervision of other normal pregnancy, third trimester (principal)
CPT/HCPCS: 87653

== ENCOUNTER 2018-08-09 15:17 | Outpatient (CLI) | payer OTHER, MEDICAID, SELFPAY ==
[2018-07-16 15:27] VITALS: BMI 28.1
--- NOTE | 2018-08-09 15:55 | PM.OBTRLD ---
Visit Information Visit Information Date of evaluation: 08/09/18 Primary OB Provider: Ines Goins On-call OB Provider: Tomasa Boykin Reason for Evaluation: Yes non-stress test non-stress test reason: other (Anti phospholipid syndrome on Lovenox) Vital Signs Vital Signs: Blood pressure 133/84, pulse of 67 PFSH Medical History (Updated 08/09/18 @ 15:56 by Tomasa Boykin MD) Gallstone of bile duct with obstruction (Resolved 2017) Phospholipid antibody syndrome affecting (Chronic 09/13/15) History of recurrent ear infection (Chronic) History of urinary retention (Chronic) Acne (Resolved) History of multiple miscarriages (Resolved 2012) Surgical History (Updated 01/21/18 @ 14:50 by Jodie Steward) S/P cholecystectomy (Resolved 07/15/17) Anesthesia (Resolved) Family History (Updated 01/21/18 @ 14:45 by Jodie Steward) Mother Asthma Diabetes mellitus Hypertension Hyperlipidemia Influenza Father No problems noted. Brother Autism Grandfather No problems noted. Grandmother No problems noted. Grandfather Cancer Grandmother No problems noted. Social History household members: spouse Smoking Status: Current some day smoker Social History household members: spouse Smoking Status: Current some day smoker Evaluation Evaluation Baseline heart rate: 120 Variability: Moderate (11-25) monitor accelerations: Present monitor decelerations: Absent Category of Tracing: I Diagnosis, Plan/Disposition Final Diagnosis (1) 37 weeks gestation of : Current Visit: Yes Status: Acute (2) Phospholipid antibody syndrome affecting : Current Visit: No Status: Acute Plan/Disposition Plan: Reactive nonstress test OB Disposition: home
== END 2018-08-09 16:00 | disposition home or self-care (01) ==
LOC: LABOR 15:54 → OB 08-13 08:11
PROVIDERS: PCP Obstetrics & Gynecology; Visit Provider Obstetrics & Gynecology
DX: O99.119 Other diseases of the blood and blood-forming organs and certain disorders involving the immune mechanism complicating pregnancy, unspecified trimester (principal); D68.61 Antiphospholipid syndrome; Z3A.37 37 weeks gestation of pregnancy
CPT/HCPCS: 59025; G0378; G0379

== ENCOUNTER 2018-08-15 15:14 | Outpatient (CLI) | payer OTHER, MEDICAID, SELFPAY ==
[2018-07-16 15:27] VITALS: BMI 28.1
== END 2018-08-15 15:50 | disposition home or self-care (01) ==
LOC: OB 08-16 12:44
PROVIDERS: PCP Obstetrics & Gynecology; Visit Provider Obstetrics & Gynecology
DX: O99.113 Other diseases of the blood and blood-forming organs and certain disorders involving the immune mechanism complicating pregnancy, third trimester (principal); Z3A.38 38 weeks gestation of pregnancy
CPT/HCPCS: 59025; G0378; G0379

== ENCOUNTER 2018-08-20 06:57 | Inpatient (IN) | payer OTHER, MEDICAID, SELFPAY ==
[2018-07-16 15:27] VITALS: BMI 28.1
[2018-08-20] MEDS: LACTATED RINGERS 1,000 ML 100 ML IV ×2 (07:55→15:56)
[2018-08-20] MEDS: OXYTOCIN PREMIX 30 UNIT/500 ML PLAST..BAG IV (07:56)
[2018-08-20 07:59] VITALS: BP 131/90
[2018-08-20 08:00] LABS: Add Manual Diff / Slide Review NO; Basophils Absolute Auto 0 /uL (0-100); Basophils Percent Auto 0.3 % (0-2); Eosinophils Absolute Auto 100 /uL (0-450); Eosinophils Percent Auto 0.6 % (2-4); Hemoglobin 11.3 g/dL (12.0-16.0); Lymphocytes Absolute Auto 3100 /uL (1100-4500); Lymphocytes Percent Auto 28.5 % (25-40); Mean Corpuscular HGB Conc 34.3 % (30-36); Mean Corpuscular Hemoglobin 29.1 PG (26-34); Monocytes Absolute Auto 600 /uL (0-900); Monocytes Percent Auto 5.6 % (3-14); Neutrophils Absolute Auto 7100 /uL (1500-7000); Platelet Count 258 X10^3/uL (150-400); Red Blood Cell Count 3.88 X10^6/uL (4.0-5.2); Red Cell Distribution Width 14.3 % (11.6-14.8); White Blood Cell Count 10.9 X10^3/uL (4.5-11.0)
[2018-08-20] MEDS: PENICILLIN G POTASSIUM 5,000,000 UNIT in DEXTROSE 5% IN WATER 250 ML IV (08:12)
[2018-08-20] MEDS: PENICILLIN G POTASSIUM 3,000,000 UNIT/50 ML FROZ.PIGGY 100 UNIT IV ×2 (12:51→15:57)
--- NOTE | 2018-08-20 19:47 | PM.OBHP.1 ---
OB HPI Date/Time Date of admission: 08/20/18 Date Patient Seen: 08/20/18 Time Patient Seen: 07:30 History of Present Condition Chief complaint: LABOR AND DELIVERY : 6 Para: 2 Estimated Date of Delivery: 08/26/18 Estimated Gestational Age (weeks): 39+1 Narrative: Danica Gonzalez is a 33 year old female 6 para 2 who presented for induction of labor at 39 weeks gestation secondary to antiphospholipid antibody syndrome She is also GBS positive Indications Indication for induction OB: medical complication (APA syndrome) History of Present care: good care, initiated at week # (9 weeks), number of visits (11) and pounds weight gain (25) Dating criteria: LMP confirmed by 1st trimester US Ultrasounds: normal 1st trimester US and normal mid trimester US Obstetrical complications: autoimmune disease (APA) Medical complications: immunologic (APa) Preadmission Labs Blood type: O (+) positive -: Antibody screen: negative, GBS status: positive, HBsAG: negative, HIV: negative, HSV 1: negative, HSV 2: negative and RPR/VDLR: negative -: Chlamydia screen: not detected and Gonorrhea screen: not detected -: Rubella: not immune and Varicella: immune HCT: 33.3 HCAB: negative PAP: Normal Quad screen: Normal 1 hr GTT: 113 Prior (ies) History: 2 3 SAB Evaluation Evaluation Baseline heart rate: 130 Variability: Moderate (11-25) monitor accelerations: Present monitor decelerations: Absent Category of Tracing: I Cervical dilation (cm): 3 Cervical effacement (%): 80 station: -1 Laboratory results: Laboratory Tests 08/20/18 08/20/18 07:45 07:45 WBC 10.9 RBC 3.88 L Hgb 11.3 L Hct 33.0 L MCV 85.0 MCH 29.1 MCHC 34.3 RDW 14.3 Plt Count 258 Neut % (Auto) 65.0 Lymph % (Auto) 28.5 [place] % (Auto) 5.6 Eos % (Auto) 0.6 L Baso % (Auto) 0.3 Neut # (Auto) 7100 H Lymph # (Auto) 3100 [place] # (Auto) 600 Eos # (Auto) 100 Baso # (Auto) 0 Blood Type O Positive Antibody Screen Negative [facility] Medical History (Updated 08/09/18 @ 15:56 by Tomasa Boykin MD) Gallstone of bile duct with obstruction (Resolved 2017) Phospholipid antibody syndrome affecting (Chronic 09/13/15) History of recurrent ear infection (Chronic) History of urinary retention (Chronic) Acne (Resolved) History of multiple miscarriages (Resolved 2012) Surgical History (Updated 01/21/18 @ 14:50 by Jodie Steward) S/P cholecystectomy (Resolved 07/15/17) Anesthesia (Resolved) Family History (Updated 01/21/18 @ 14:45 by Jodie Steward) Mother Asthma Diabetes mellitus Hypertension Hyperlipidemia Influenza Father No problems noted. Brother Autism Grandfather No problems noted. Grandmother No problems noted. Grandfather Cancer Grandmother No problems noted. Social History household members: spouse Smoking Status: Never smoker Social History household members: spouse Smoking Status: Never smoker Meds Home Medications Medication Instructions Recorded Confirmed Type No Known Home Medications 08/20/18 08/20/18 History Allergies Allergy/AdvReac Type Severity Reaction Status Date / Time codeine [CODEINE] AdvReac Severe Anaphylaxis Verified 02/27/18 22:09 Exam Vital Signs (past 8 hours): Generally: Patient sitting up in bed, no acute distress Lungs: Clear to auscultation bilaterally Cardiovascular: Regular rate and rhythm Fundal height: 39 cm Estimated weight: 6-1/2 lb Extremities: Negative Homans, no edema Objective Labs Result Diagrams: 08/20/18 07:45 Labs: Laboratory Results - last 24 hr 08/20/18 08/20/18 07:45 07:45 WBC 10.9 RBC 3.88 L Hgb 11.3 L Hct 33.0 L MCV 85.0 MCH 29.1 MCHC 34.3 RDW 14.3 Plt Count 258 Neut % (Auto) 65.0 Lymph % (Auto) 28.5 [place] % (Auto) 5.6 Eos % (Auto) 0.6 L Baso % (Auto) 0.3 Neut # (Auto) 7100 H Lymph # (Auto) 3100 [place] # (Auto) 600 Eos # (Auto) 100 Baso # (Auto) 0 Blood Type O Positive Antibody Screen Negative Assessment and Plan Assessment and Plan Assessment and Plan narrative: Assessment: 33-year-old 6 para 2 at 39-,1/7 weeks gestation for induction of labor secondary to antiphospholipid antibody syndrome GBS positive Plan: Pitocin per protocol to Group B strep prophylaxis per protocol Epidural as necessary Expectant management to spontaneous vaginal delivery Time Spent with Patient Total time spent with greater than 50% in coordination of care (as documented) at patient's floor/unit and/or counseling patient:: 15-24 minutes
--- NOTE | 2018-08-20 19:58 | PM.OBPRVD ---
Events: Labor Induction Delivery date: 08/20/18 Intrapartal events: Deceleration (Variable) Cervical ripening method: none Induction method: per pitocin protocol Delivery augmentation: rupture of membranes Delivery monitor: external FHT and external uterine Route of delivery: Episiotomy description: None L&D Laceration Description: Perineal - 1st Degree Delivery repair: chromic (2-0) Estimated blood loss (mL): 150 Anesthesia type: Epidural Complications: None Narrative: Patient complete and pushed with 3 contractions. At 7:02 p.m., a live female infant delivered spontaneously over an intact perineum. A nuchal cord was reduced on the perineum. The remainder of the body delivered without difficulty and was placed on mom's abdomen. There was a body cord x1. After the cord stopped pulsing the cord was double clamped and cut. Cord bloods were obtained. Pitocin was given in the IV fluids. The placenta delivered intact with a 3 vessel cord at 1914. Fundus was massaged to firm. A first-degree perineal laceration was repaired in the usual fashion using 2 0 chromic. Hemostasis was achieved. Estimated blood loss 150 cc. Apgars 9 at 1 minute and 9 at 5 minutes. Epidural analgesia. Mom and stable to recovery. Plan for aftercare: To routine care
[2018-08-21] MEDS: IBUPROFEN 600 MG TABLET PO ×2 (01:51→07:44)
[2018-08-21 05:36] LABS: Hematocrit 32.2 % (36-46); Hemoglobin 10.7 g/dL (12.0-16.0)
[2018-08-21] MEDS: PRENATAL VIT,CALC/IRON/FOLIC 1 TABLET 1 TAB PO (07:45)
[2018-08-21] MEDS: DOCUSATE 250 MG CAPSULE PO (07:45)
[2018-08-21] MEDS: KETOROLAC 30 MG/ML VIAL IM (12:11)
[2018-08-21 13:13] VITALS: BP 126/80; PULSE 77; RESP 16; TEMP 36.7
--- NOTE | 2018-08-23 10:08 | PM.OBDS.1 ---
Discharge Providers Date of admission: 08/20/18 06:57 Discharge Date: 08/21/18 Primary care physician: Ines Goins MD Discharge provider: Ines Goins MD Summary Date Patient Seen: 08/21/18 Time Patient Seen: 13:30 Procedures: Pitocin induction of labor Artificial rupture of membranes Epidural analgesia Spontaneous vaginal delivery First-degree laceration repair Hospital Course: Patient is a 33-year-old who was admitted on 08/20/2018 for scheduled induction of labor due to antiphospholipid antibody syndrome. She was 39 weeks gestation. She was started on Pitocin and group B strep prophylaxis. Artificial rupture of membranes was performed once her 2nd dose of antibiotics was received. She received an epidural for pain management. She had a spontaneous vaginal delivery without complication. Her course was unremarkable and she is discharged home on 08/21/2018 Peripartum Data Infant Delivery Method: Natural Vaginal Laceration description: Perineal - 1st Degree Episiotomy description: None Procedures: Pitocin induction of labor IV antibiotics Artificial rupture membranes Spontaneous vaginal delivery First-degree laceration repair complications: none Status at Discharge Cognitive/behavioral status at discharge: oriented Functional status at discharge: independent ambulation Overall status at discharge: patient is progressing back to baseline Time Spent with Patient Total time spent providing and/or coordinating discharge services: Objective Labs Result Diagrams: 08/21/18 05:11 Exam Vital Signs (past 8 hours): Generally: Patient is sitting up in bed, nursing infant, no acute distress Fundus: Firm at U -2 Extremities: Negative Homans, no edema Discharge Plan Discharge Plan Patient Disposition: Home Discharge comment: Call with fever, chills or bleeding vaginally more than a pad in an hour Discharge Med Rec/Prescriptions Prescriptions: New ibuprofen 800 mg tablet 800 mg PO TID PRN (Reason: pain) Qty: 30 RF: 0 hydromorphone [Dilaudid] 2 mg tablet 2 mg PO Q4-6H PRN (Reason: pain) Qty: 14 RF: 0 No Action No Known Home Medications RF: 0 Follow up/Referrals: Ines Goins MD [Primary Care Provider] - 09/27/18 2:45 pm (check in at 230pm ) Provider Discharge Instructions Diet: Regular Activity: No intercourse Skin/Wound/Dressing Care Report to your healthcare provider any signs of infection, such as:: chills, fever, increased pain and unusual drainage Visit Report/Discharge Packet Instructions: DI for Labor and Delivery, Vaginal Stand Alone Forms: Discharge: Care Visit Report Forms: Stroke Signs & Symptoms Discharge Data Primary Care Provider: Ines Goins Attending Provider: Ines Goins Admit Date/Time: 08/20/18 06:57 Discharges patient from system. Discharge Date/Time: 08/21/18 17:00
== END 2018-08-21 17:00 | disposition home or self-care (01) | DRG 560 ==
PROVIDERS: Admitting Provider Obstetrics & Gynecology; PCP Obstetrics & Gynecology; Visit Provider Obstetrics & Gynecology
DX: O99.12 Other diseases of the blood and blood-forming organs and certain disorders involving the immune mechanism complicating childbirth (principal); Z3A.39 39 weeks gestation of pregnancy; Z37.0 Single live birth; O99.824 Streptococcus B carrier state complicating childbirth; O70.0 First degree perineal laceration during delivery; O69.81X0 Labor and delivery complicated by cord around neck, without compression, not applicable or unspecified; D68.61 Antiphospholipid syndrome
CPT/HCPCS: 01967; 36415; 59050; 59409; 85014; 85018; 85025; 86850; 86900; 86901; J1885; J2540; J2590

== ENCOUNTER 2018-10-27 12:33 | Emergency (ER) | payer OTHER, MEDICAID, SELFPAY ==
[2018-07-16 15:27] VITALS: BMI 28.1
[2018-10-27 12:36] VITALS: BP 139/97; PULSE 84; RESP 18; TEMP 36.9; O2SAT 100; BMI 27.3
--- NOTE | 2018-10-27 12:41 | DI.RAD.S_ITS ---
PROCEDURE: XR CHEST 1V INDICATIONS: chest pain TECHNIQUE: One view of the chest was acquired. COMPARISON: [facility], CR, XR CHEST 2V, 07/28/2017, 18:40. FINDINGS: Surgical changes and devices: None. Lungs and pleura: Lungs are clear. No pleural effusions or pneumothorax. Mediastinum: Mediastinal contours appear normal. Heart size is normal. Bones and chest wall: No suspicious bony lesions. Overlying soft tissues appear unremarkable. IMPRESSION: Portable chest within normal limits. Dictated by: Chapin Hinton M.D. on 10/27/2018 at 12:10 Approved by: Chapin Hinton M.D. on 10/27/2018 at 12:11
[2018-10-27 13:12] LABS: Prothrombin Time 11.3 SECONDS (10.1-12.7)
[2018-10-27 13:13] VITALS: BP 125/83; PULSE 87; RESP 14; O2SAT 97
[2018-10-27 13:14] LABS: Add Manual Diff / Slide Review NO; Basophils Absolute Auto 0 /uL (0-100); Basophils Percent Auto 0.5 % (0-2); Eosinophils Absolute Auto 0 /uL (0-450); Eosinophils Percent Auto 0.4 % (2-4); Hematocrit 37.8 % (36-46); Hemoglobin 12.6 g/dL (12.0-16.0); Lymphocytes Absolute Auto 2300 /uL (1100-4500); Lymphocytes Percent Auto 23.1 % (25-40); Mean Corpuscular HGB Conc 33.2 % (30-36); Mean Corpuscular Hemoglobin 28.7 PG (26-34); Mean Corpuscular Volume 86.3 fL (80-100); Monocytes Absolute Auto 400 /uL (0-900); Neutrophils Absolute Auto 7200 /uL (1500-7000); Platelet Count 322 X10^3/uL (150-400); Red Blood Cell Count 4.38 X10^6/uL (4.0-5.2); Red Cell Distribution Width 14.5 % (11.6-14.8)
[2018-10-27 13:15] LABS: PTT Partial Thromboplastin Tim 36 SECONDS (26.4-36.2)
[2018-10-27 13:16] LABS: Alanine Aminotransferase 23 IU/L (9-52); Albumin 4.5 g/dL (3.5-5.0); Albumin Globulin Ratio 1.4 (1.0-2.8); Alkaline Phosphatase 87 U/L (38-126); Aspartate Aminotransferase 20 IU/L (14-36); Bilirubin Total 0.3 mg/dL (0.2-1.3); Blood Urea Nitrogen 11 mg/dL (7-17); Calcium 9.8 mg/dL (8.4-10.2); Carbon Dioxide 24 mmol/L (22-32); Chloride 106 mmol/L (98-107); Creatine Kinase 65 U/L (30-135); Estimated Glomerular Filt Rate > 60.0 mL/min (>60); Globulin 3.3 g/dL (1.7-4.1); Glucose 116 mg/dL (70-100); HEMOLYSIS < 15 (0-50); Lipase 34 U/L (23-300); Potassium 3.7 mmol/L (3.4-5.1); Sodium 142 mmol/L (137-145); Total Protein 7.8 g/dL (6.3-8.2)
[2018-10-27 13:28] LABS: Troponin I < 0.012 ng/mL (0.01-0.034)
--- NOTE | 2018-10-27 13:29 | ED_ITS ---
HPI - Chest Pain <DIONNA Bardales - Last Filed: 10/27/18 22:28> General Chief Complaint: Chest Pain Stated Complaint: INTERMITTENT CHEST PAINS Time Seen by Provider: 10/27/18 13:06 Source: patient Mode of arrival: ambulatory Limitations: no limitations History of Present Illness HPI narrative: 33-year-old female who is currently 8 weeks , presents emergency department today complaining of intermittent 10/10 sharp stabbing right-sided chest pain that briefly radiates to her back. She states the episode started this morning while she was sitting, when they occur they last 1- 2 seconds and occur in a cluster then resolve for some time. She denies any shortness of breath, diaphoresis, dizziness, or other symptoms during these episodes. She did reports she felt a mildly nauseated when she was driving to the hospital but did not have pain at this time. Patient reports that she had a vaginal without complication, she is current , her is healthy nursing well. She also reports 2/10 mild pain in her diastasis recti that has occurred the past few days, worse with palpation better with rest. Patient also denies syncope, fevers, chills, abnormal vaginal discharge other than the small amount of bleeding that is expected at this time, recent long trips, or plane rides, history of PEs or DVTs, hormonal control, swelling in her legs, pain in her calves, dizziness, vision changes, sore throat, or cough. Related Data Home Medications Medication Instructions Recorded Confirmed No Known Home Medications 08/20/18 08/20/18 Allergies Allergy/AdvReac Type Severity Reaction Status Date / Time codeine [CODEINE] AdvReac Severe Anaphylaxis Verified 10/27/18 12:40 Review of Systems <DIONNA Bardales - Last Filed: 10/27/18 22:28> Review of Systems Narrative: REVIEW OF SYSTEMS: GENERAL: Denies fever or chills. HENT: No head trauma, hearing loss or sore throat. EYES: No loss of vision, double vision, eye pain, or irritation. CARDIOVASCULAR: Complains of chest pain, see HPI. RESPIRATORY: No shortness of breath or cough. GASTROINTESTINAL: No nausea, vomiting, diarrhea, or constipation. GENITOURINARY: No flank pain or dysuria. MUSCULOSKELETAL: No pain, weakness, or deformities. INTEGUMENTARY: No rash, lesions, or pruritus. NEURO: No numbness, tingling, memory loss, or confusion. PSYCH: No behavior or mood changes. PFSH <DIONNA Bardales - Last Filed: 10/27/18 22:28> Medical History Acne (Resolved) Antiphospholipid antibody positive (Acute) Gallstone of bile duct with obstruction (Resolved 2017) History of multiple miscarriages (Resolved 2012) History of recurrent ear infection (Chronic) History of urinary retention (Chronic) Surgical History Anesthesia (Resolved) S/P cholecystectomy (Resolved 07/15/17) Family History (Updated 01/21/18 @ 14:45 by Jodie Steward) Mother Asthma Diabetes mellitus Hypertension Hyperlipidemia Influenza Father No problems noted. Brother Autism Grandfather No problems noted. Grandmother No problems noted. Grandfather Cancer Grandmother No problems noted. Social History household members: spouse Smoking Status: Former smoker Family History Mother Asthma Diabetes mellitus Hypertension Hyperlipidemia Influenza Father No problems noted. Brother Autism Grandfather No problems noted. Grandmother No problems noted. Grandfather Cancer Grandmother No problems noted. Social History household members: spouse Smoking Status: Former smoker Exam <DIONNA Bardales - Last Filed: 10/27/18 22:28> Initial Vital Signs Initial Vital Signs: Vital Signs Temperature 98.5 F 10/27/18 12:36 Pulse Rate 84 10/27/18 12:36 Respiratory Rate 18 10/27/18 12:36 Blood Pressure 139/97 H 10/27/18 12:36 Pulse Oximetry 100 10/27/18 12:36 PHYSICAL EXAMINATION: GENERAL: Well groomed, alert, and cooperative. Answers questions promptly and appropriately. Vital signs noted. HENT: Normocephalic, atraumatic. Ear canals patent. Oral mucosa is pink and moist. EYES: Conjunctiva pink, sclera white, no periorbital swelling. CHEST: Normal to inspection and without deformities. CARDIOVASCULAR: S1 and S2 sounds normal. Regular rate and rhythm, no murmurs, clicks, or bruits. No pedal edema. RESPIRATORY: Normal respiratory rate, trachea midline, airway patent. No stridor, nasal flaring or accessory muscle use. Lungs are clear in all underwood without wheeze, rhonchi, or crackles. GASTROINTESTINAL: Bowel sounds normoactive. Abdomen is soft and non-tender. No organomegaly. MUSCULOSKELETAL: Normal gait and coordination. Equal tone and mass bilaterally. EXTREMITIES: CMS intact. Moves all extremities. SKIN: Warm, dry, soft, appropriate color for ethnicity. No lesions, rashes, or wounds. NEURO: Alert and Oriented X 3. Good coordination. No ataxia, or sensory deficits, or cognitive issues. PSYCH: Appropriate affect and mood. <Teo Andre DO - Last Filed: 10/28/18 07:20> Initial Vital Signs Initial Vital Signs: Vital Signs Temperature 98.5 F 10/27/18 12:36 Pulse Rate 84 10/27/18 12:36 Respiratory Rate 18 10/27/18 12:36 Blood Pressure 139/97 H 10/27/18 12:36 Pulse Oximetry 100 10/27/18 12:36 Scores <DIONNA Bardales - Last Filed: 10/27/18 22:28> Wells' Criteria for PE Clinical signs and symptoms of DVT: No PE is #1 Dx or equally likely: No Heart rate > 100: No Immobilization at least 3 days or surg in previous 4 weeks: No History of PE or DVT: No Hemoptysis: No Malignancy w/Treatment within 6 months or palliative: No Wells' PE Score total: 0 Course <DIONNA Bardales - Last Filed: 10/27/18 22:28> Course Course Narrative: Patient had a few episodes of chest pain during her emergency department stay, at that time her rhythm remained normal. She stated the episodes lasted a few seconds. Orders Ordered: ED Orders 10/27/18 12:36 EKG-12 Lead Stat 10/27/18 12:41 XR chest 1V Stat 10/27/18 12:56 Complete Blood Count AUTO DIFF Stat Comprehensive Metabolic Panel Stat Lipase Stat Partial Thromboplastin Time Stat Prothrombin Time INR Stat Troponin & CK Cardiac Panel Stat Consultations Consultation #1: Patient staffed with Dr. Andre. Vital Signs Vital signs: Vital Signs - 8 hr 10/27/18 12:36 10/27/18 13:13 Temperature 98.5 F Pulse Rate 84 87 Respiratory Rate 18 14 Blood Pressure 139/97 H Blood Pressure [Left Arm] 125/83 Pulse Oximetry 100 97 <Teo Andre DO - Last Filed: 10/28/18 07:20> Orders Ordered: ED Orders 10/27/18 12:36 EKG-12 Lead Stat 10/27/18 12:41 XR chest 1V Stat 10/27/18 12:56 Complete Blood Count AUTO DIFF Stat Comprehensive Metabolic Panel Stat Lipase Stat Partial Thromboplastin Time Stat Prothrombin Time INR Stat Troponin & CK Cardiac Panel Stat Vital Signs Vital signs: Vital Signs - 8 hr 10/27/18 12:36 10/27/18 13:13 Temperature 98.5 F Pulse Rate 84 87 Respiratory Rate 18 14 Blood Pressure 139/97 H Blood Pressure [Left Arm] 125/83 Pulse Oximetry 100 97 MDM - Chest Pain <DIONNA Bardales - Last Filed: 10/27/18 22:28> Medical Records Data Attestation: I reviewed the patient's medical records. Lab Data Attestation: I reviewed the patient's lab results. Result diagrams: 10/27/18 12:56 10/27/18 12:56 Labs: Lab Results 10/27/18 10/27/18 10/27/18 Range/Units 12:56 12:56 12:56 WBC 10.0 (4.5-11.0) X10^3/uL RBC 4.38 (4.0-5.2) X10^6/uL Hgb 12.6 (12.0-16.0) g/dL Hct 37.8 (36-46) % MCV 86.3 (80-100) fL MCH 28.7 (26-34) PG MCHC 33.2 (30-36) % RDW 14.5 (11.6-14.8) % Plt Count 322 (150-400) X10^3/uL Neut % (Auto) 72.0 (50-75) % Lymph % (Auto) 23.1 L (25-40) % [place] % (Auto) 4.0 (3-14) % Eos % (Auto) 0.4 L (2-4) % Baso % (Auto) 0.5 (0-2) % Neut # (Auto) 7200 H (7230-9774) /uL Lymph # (Auto) 2300 (1962-6537) /uL [place] # (Auto) 400 (0-900) /uL Eos # (Auto) 0 (0-450) /uL Baso # (Auto) 0 (0-100) /uL PT 11.3 (10.1-12.7) SECONDS INR 1.0 (0.9-1.3) APTT 36 (26.4-36.2) SECONDS Sodium 142 (137-145) mmol/L Potassium 3.7 (3.4-5.1) mmol/L Chloride 106 (98-107) mmol/L Carbon Dioxide 24 (22-32) mmol/L BUN 11 (7-17) mg/dL Creatinine 0.50 L (0.52-1.04) mg/dL Estimated GFR > 60.0 (>60) mL/min BUN/Creatinine Ratio 22.0 (6-22) Glucose 116 H (70-100) mg/dL Calcium 9.8 (8.4-10.2) mg/dL Total Bilirubin 0.3 (0.2-1.3) mg/dL AST 20 (14-36) IU/L ALT 23 (9-52) IU/L Alkaline Phosphatase 87 (38-126) U/L Total Creatine Kinase 65 (30-135) U/L CK-MB (CK-2) TNP CK-MB (CK-2) Rel Index TNP Troponin I < 0.012 (0.01-0.034) ng/mL Total Protein 7.8 (6.3-8.2) g/dL Albumin 4.5 (3.5-5.0) g/dL Globulin 3.3 (1.7-4.1) g/dL Albumin/Globulin Ratio 1.4 (1.0-2.8) Lipase 34 (23-300) U/L Imaging Data Chest x-ray: Radiologist's impression: Signed Patient: Danica Gonzalez [facility]#: [id number] : 1985Acct:[id number] Age/Sex: 33 / FDate of Service: 10/27/18 Loc: ED Accession Number: [id number] Procedure: XR chest 1V Ordering Provider: Teo Andre D.O. PROCEDURE: XR CHEST 1V INDICATIONS: chest pain TECHNIQUE: One view of the chest was acquired. COMPARISON: [facility], , XR CHEST 2V, 07/28/2017, 18:40. FINDINGS: Surgical changes and devices: None. Lungs and pleura: Lungs are clear. No pleural effusions or pneumothorax. Mediastinum: Mediastinal contours appear normal. Heart size is normal. Bones and chest wall: No suspicious bony lesions. Overlying soft tissues appear unremarkable. IMPRESSION: Portable chest within normal limits. Dictated by: Chapin Hinton M.D. on 10/27/2018 at 12:10 Approved by: Chapin Hinton M.D. on 10/27/2018 at 12:11 ECG Data Interpretation: Normal sinus rhythm, rate 79, NJ interval 140, QTC 403. No ST elevation or ST depression, no T-wave abnormality, no ectopy. EKG was also viewed by Dr. Andre. MDM Narrative Medical decision making narrative: Differential includes costochondritis, anxiety (due to duration, description of attack, recent stressor of new ), acute coronary syndrome (less likely due to an unremarkable EKG, negative troponin, lack of recurring symptoms during exercise or upset distress, lack of other associated symptoms such as shortness of breath or chest pressure), PE (this is difficult to test for as the D-dimer not prove useful as patient is , however very low concern due to lack of hypoxia, lack of shortness of breath, no tachycardia, lack of other risk factors other than being 8 weeks , description of pain as sharp and stabbing lasting only few seconds, no reports of long trips or flights), preeclampsia (less likely due to aching 8 week, no reports of headache, non-remarkable vital signs), pericarditis or endocarditis (less likely due to no reports of IV drug use, afebrile, normal sinus rhythm). Very strict return precautions were given to patient follow-up instructions discussed. <Teo Andre, - Last Filed: 10/28/18 07:20> Lab Data Labs: Lab Results 10/27/18 10/27/18 10/27/18 Range/Units 12:56 12:56 12:56 WBC 10.0 (4.5-11.0) X10^3/uL RBC 4.38 (4.0-5.2) X10^6/uL Hgb 12.6 (12.0-16.0) g/dL Hct 37.8 (36-46) % MCV 86.3 (80-100) fL MCH 28.7 (26-34) PG MCHC 33.2 (30-36) % RDW 14.5 (11.6-14.8) % Plt Count 322 (150-400) X10^3/uL Neut % (Auto) 72.0 (50-75) % Lymph % (Auto) 23.1 L (25-40) % [place] % (Auto) 4.0 (3-14) % Eos % (Auto) 0.4 L (2-4) % Baso % (Auto) 0.5 (0-2) % Neut # (Auto) 7200 H (8087-7353) /uL Lymph # (Auto) 2300 (1982-2887) /uL [place] # (Auto) 400 (0-900) /uL Eos # (Auto) 0 (0-450) /uL Baso # (Auto) 0 (0-100) /uL PT 11.3 (10.1-12.7) SECONDS INR 1.0 (0.9-1.3) APTT 36 (26.4-36.2) SECONDS Sodium 142 (137-145) mmol/L Potassium 3.7 (3.4-5.1) mmol/L Chloride 106 (98-107) mmol/L Carbon Dioxide 24 (22-32) mmol/L BUN 11 (7-17) mg/dL Creatinine 0.50 L (0.52-1.04) mg/dL Estimated GFR > 60.0 (>60) mL/min BUN/Creatinine Ratio 22.0 (6-22) Glucose 116 H (70-100) mg/dL Calcium 9.8 (8.4-10.2) mg/dL Total Bilirubin 0.3 (0.2-1.3) mg/dL AST 20 (14-36) IU/L ALT 23 (9-52) IU/L Alkaline Phosphatase 87 (38-126) U/L Total Creatine Kinase 65 (30-135) U/L CK-MB (CK-2) TNP CK-MB (CK-2) Rel Index TNP Troponin I < 0.012 (0.01-0.034) ng/mL Total Protein 7.8 (6.3-8.2) g/dL Albumin 4.5 (3.5-5.0) g/dL Globulin 3.3 (1.7-4.1) g/dL Albumin/Globulin Ratio 1.4 (1.0-2.8) Lipase 34 (23-300) U/L Discharge Plan Departure Patient Disposition: Home Clinical Impression: Atypical chest pain Discharge Date/Time: 10/27/18 14:44 Instructions: DI for Chest Pain Activity Restrictions/Additional Instructions: Thank you for entrusting me with your care today. As discussed, your lab work and x-rays negative for any concerning findings. I am unsure the exact cause of your chest pain, please monitor her symptoms carefully, he can use acetaminophen for pain. Please follow up with your primary care provider in the next week for re-evaluation. Return to the emergency department if your chest pain worsen, develops shortness of breath, fevers, uncontrollable vomiting, severe abdominal, syncope, excessive sweating, or other concerning symptoms. Prescriptions: No Action No Known Home Medications RF: 0 Referrals: Ines Goins MD [Primary Care Provider] - <Teo Andre DO - Last Filed: 10/28/18 07:20> Sign Out Provider Sign Out Attestation: I was available for consultation during this patient's emergency department encounter
[2018-10-27 14:00] VITALS: BP 127/82; PULSE 82; RESP 15; O2SAT 98
== END 2018-10-27 14:44 | disposition home or self-care (01) ==
PROVIDERS: Emergency Medicine; Emergency Provider Nurse Practitioner; PCP Obstetrics & Gynecology
DX: R07.89 Other chest pain (principal)
CPT/HCPCS: 36415; 71045; 80053; 82550; 83690; 84484; 85025; 85610; 85730; 93005; 99283; 99285

== ENCOUNTER → 2018-11-20 08:41 | Outpatient (CLI) | payer OTHER, MEDICAID, SELFPAY ==
[2018-07-16 15:27] VITALS: BMI 28.1
[2018-11-20 09:55] LABS: Erythrocyte Sedimentation Rate 9 MM/HR (0-20)
[2018-11-20 10:47] LABS: C-Reactive Protein Quant 0.7 mg/dL (<1.0); Cholesterol 239 mg/dL (140-199); HDL Cholesterol 69 mg/dL (40-60); LDL Cholesterol Calculated 154 mg/dL (<100); Triglycerides 82 mg/dL (35-150)
[2018-11-20 11:06] LABS: Free T4, Direct Thyroxine 0.95 ng/dL (0.78-2.19)
[2018-11-20 11:20] LABS: Thyroid Stimulating Hormone 1.46 uIU/mL (0.47-4.68)
[2018-11-22 16:20] LABS: Anti Thyroglobulin Antibody < 1 IU/mL (< 2); Thyroid Peroxidase Antibodies 1 IU/mL (< 9)
== END ==
PROVIDERS: PCP Nurse Practitioner; Visit Provider Nurse Practitioner
DX: F41.0 Panic disorder [episodic paroxysmal anxiety] (principal); L65.9 Nonscarring hair loss, unspecified; R68.89 Other general symptoms and signs; L70.9 Acne, unspecified
CPT/HCPCS: 36415; 80061; 84439; 84443; 84481; 85651; 86140; 86376; 86800

== ENCOUNTER → 2019-12-15 16:07 | Outpatient (CLI) | payer OTHER, SELFPAY ==
[2018-07-16 15:27] VITALS: BMI 28.1
== END ==
PROVIDERS: PCP Nurse Practitioner; Visit Provider Pediatrics
DX: J02.0 Streptococcal pharyngitis (principal)
CPT/HCPCS: 87081

== ENCOUNTER → 2020-11-04 08:54 | Outpatient (CLI) | payer OTHER, SELFPAY ==
[2018-07-16 15:27] VITALS: BMI 28.1
[2020-11-04 10:12] LABS: COVID19 -Nasal RAPID POSITIVE (Negative)
== END ==
PROVIDERS: PCP Nurse Practitioner; Visit Provider Nurse Practitioner
DX: U07.1 COVID-19 (principal); N39.0 Urinary tract infection, site not specified
CPT/HCPCS: 87086; 87635

== ENCOUNTER → 2021-02-07 12:41 | Outpatient (CLI) | payer OTHER, SELFPAY ==
[2018-07-16 15:27] VITALS: BMI 28.1
[2021-02-07 17:07] LABS: Appearance Urine UA CLEAR; Bilirubin Urine UA NEGATIVE (NEGATIVE); Color Urine UA YELLOW; Glucose Urine UA NEGATIVE (Negative); Ketones Urine UA NEGATIVE (NEGATIVE); Leukocyte Esterase Urine UA NEGATIVE (NEGATIVE); Nitrite Urine UA NEGATIVE (Negative); Occult Blood Urine UA NEGATIVE (Negative); Protein Urine UA NEGATIVE (Negative); Urobilinogen Urine UA 0.2 E.U./dL (0.2)
[2021-02-07 17:09] LABS: pH Urine UA 5.5 (4.5-8.0)
== END ==
PROVIDERS: PCP Nurse Practitioner; Visit Provider Obstetrics & Gynecology
DX: Z34.81 Encounter for supervision of other normal pregnancy, first trimester (principal)
CPT/HCPCS: 81003; 87086

== ENCOUNTER → 2021-03-08 08:54 | Outpatient (CLI) | payer OTHER, MEDICAID, SELFPAY ==
[2018-07-16 15:27] VITALS: BMI 28.1
--- NOTE | 2021-03-08 08:58 | DI.US.S_ITS ---
PROCEDURE: US OB >= 14 WEEKS FETUS INDICATIONS: ANATOMY OUTSIDE/PRIOR DATING DATA: Last menstrual period (LMP): 09/30/2020 LMP-based estimated date of delivery (MYRON): 07/07/2021. First dating scan (date and location): 12/20/2020. Estimated date of delivery (MYRON) from first dating scan: 07/22/2021. TECHNIQUE: Real-time scanning was performed of the fetus, with image documentation and biometric measurements. COMPARISON: [facility], , OB >= 14 WEEKS FETUS, 02/07/2021, 13:18. FINDINGS: General: A single living intrauterine gestation is present. Presentation: Vertex. Placenta: Placental position is posterior , without previa. Amniotic fluid index: 10.3 cm, normal range is 5-24 cm. heart rate: 163 beats per minute. Maternal cervical canal: 3.9 cm long. Normal lower limit is 2.5 cm. biometrics: Biparietal diameter: 5.2 cm 21 weeks 4 days Head circumference: 19.4 cm 21 weeks 4 days Abdominal circumference: 15.3 cm 20 weeks 3 days Femur length: 3.7 cm 21 weeks 4 days Composite gestational age from present scan: 20 weeks 2 days composite gestational scanned from initial ultrasound: 20 weeks 4 days Estimated weight and percentile: 398 g, 73rd percentile Anatomic survey: Neuro: Ventricles are non-dilated at less than 10 mm. Cisterna magna is normal at 3-11 mm. Cerebellum is normal in size and morphology. Nuchal skin fold: Normal at less than 6 mm between 14-21 weeks gestational age. Face: Nose and lips, facial profile are normal. Spine: No evidence for spina bifida. Heart: 4-chambered heart is present, with normal ventricular outflow tracts. Diaphragm: Diaphragm is intact. Stomach: Left-sided stomach is present. Kidneys: No hydronephrosis. Normal is less than 5 mm in 2nd trimester, less than 7 mm in 3rd trimester. Cord: 3-vessel cord has orthotopic insertion. Bladder: Normal in size. Extremities: All 4 extremities identified. IMPRESSION: 1. Single live intrauterine with ultrasound gestational age today of 20 weeks 2 days. 2. Anatomy is within normal limits. We strive to produce accurate, complete, and clear reports of imaging services. To assist us in improving patient care, this report was composed using standard report templates and voice recognition software. Therefore, it may contain abnormal punctuation, insertions and/or omissions. Occasional wrong-word or sound-alike substitutions may occur. Though we review the report and make efforts to correct it, we do recommend that the report be read carefully in proper context to recognize any text inaccuracies. Dictated by: Karena Mayo M.D. on 03/08/2021 at 16:44 Approved by: Karena Mayo M.D. on 03/08/2021 at 16:47
== END ==
PROVIDERS: PCP Nurse Practitioner; Referring Provider Obstetrics & Gynecology; Visit Provider Obstetrics & Gynecology
DX: Z34.82 Encounter for supervision of other normal pregnancy, second trimester (principal); Z3A.20 20 weeks gestation of pregnancy
CPT/HCPCS: 76811

== ENCOUNTER → 2021-03-21 12:24 | Outpatient (CLI) | payer OTHER, MEDICAID, SELFPAY ==
[2018-07-16 15:27] VITALS: BMI 28.1
[2021-03-21 13:51] LABS: Add Manual Diff / Slide Review NO; Basophils Absolute Auto 0 /uL (0-100); Basophils Percent Auto 0.1 % (0-2); Eosinophils Absolute Auto 0 /uL (0-450); Eosinophils Percent Auto 0.4 % (2-4); Hematocrit 34.8 % (36-46); Hemoglobin 11.9 g/dL (12.0-16.0); Lymphocytes Absolute Auto 2200 /uL (1100-4500); Lymphocytes Percent Auto 20.4 % (25-40); Mean Corpuscular HGB Conc 34.3 % (30-36); Mean Corpuscular Volume 84.7 fL (80-100); Monocytes Absolute Auto 500 /uL (0-900); Monocytes Percent Auto 4.3 % (3-14); Neutrophils Absolute Auto 8200 /uL (1500-7000); Neutrophils Percent Auto 74.8 % (50-75); Platelet Count 309 X10^3/uL (150-400); Red Cell Distribution Width 13.5 % (11.6-14.8); White Blood Cell Count 10.9 X10^3/uL (4.5-11.0)
[2021-03-21 16:33] LABS: Hepatitis B Surface Antigen NEGATIVE s/c (NEGATIVE)
[2021-03-21 16:48] LABS: HIV 1 & 2 Ab/Ag 4th Gen Combo NEGATIVE (NEGATIVE); Hep C Virus Ab w/Reflex Quant NEGATIVE s/c (NEGATIVE)
[2021-03-22 03:50] LABS: RPR Screen Non Reactive (Non Reactive)
[2021-03-22 12:13] LABS: Varicella IgG Antibody 432 index (Immune >165)
[2021-03-23 21:03] LABS: Calc Gestational Age Ultrasound (.); Estriol, Free 3.37 ng/mL (.); Inhibin A, MoM See interpretation. (.); Maternal Ethnicity Caucasian (.); Maternal Weight 185 lbs (.); Number of Fetuses No (.); OSBR Risk 1 IN 10000 (.); Results Report (.); Test Results See interpretation. (.); hCG, MoM See interpretation. (.); hCG, Serum 16639 mIU/mL (.)
== END ==
PROVIDERS: PCP Nurse Practitioner; Referring Provider Obstetrics & Gynecology; Visit Provider Obstetrics & Gynecology
DX: Z34.81 Encounter for supervision of other normal pregnancy, first trimester (principal)
CPT/HCPCS: 80055; 82105; 82677; 84702; 86336; 86787; 86803; 86850; 86900; 86901; 87389

== ENCOUNTER 2021-06-01 11:47 | Outpatient (CLI) | payer OTHER, MEDICAID, SELFPAY ==
[2018-07-16 15:27] VITALS: BMI 28.1
== END 2021-06-01 13:13 | disposition home or self-care (01) ==
LOC: LABOR 13:09 → OB 06-07 15:11
PROVIDERS: PCP Nurse Practitioner; Referring Provider Obstetrics & Gynecology; Visit Provider Obstetrics & Gynecology
DX: O36.1930 Maternal care for other isoimmunization, third trimester, not applicable or unspecified (principal); O26.893 Other specified pregnancy related conditions, third trimester; D68.9 Coagulation defect, unspecified; Z3A.32 32 weeks gestation of pregnancy
CPT/HCPCS: 59025; G0378; G0379

== ENCOUNTER 2021-06-08 10:49 | Outpatient (CLI) | payer OTHER, MEDICAID, SELFPAY ==
[2018-07-16 15:27] VITALS: BMI 28.1
--- NOTE | 2021-06-08 11:57 | PM.OBTRLD ---
Visit Information Visit Information Date of evaluation: 06/08/21 Primary OB Provider: Ines Goins On-call OB Provider: Tomasa Boykin Reason for Evaluation: Yes non-stress test non-stress test reason: other (Anti phospholipid antibody) Vital Signs Vital Signs: Blood pressure 124/78, pulse of 82, temperature 36.2? [facility] Medical History (Updated 06/08/21 @ 11:59 by Tomasa Boykin MD) Acne Antiphospholipid antibody positive Anxiety (~2018) Gallstone of bile duct with obstruction (2017) History of multiple miscarriages (2012) History of recurrent ear infection History of urinary retention SAB (spontaneous ) (~2013) SAB (spontaneous ) (~2014) (spontaneous vaginal delivery) (~07/05/12) (spontaneous vaginal delivery) (~08/20/18) (spontaneous vaginal delivery) (~04/21/16) Surgical History (Updated 12/07/20 @ 10:53 by Isadora Resendez RN) Anesthesia S/P cholecystectomy (07/15/17) Family History (Updated 12/07/20 @ 10:52 by Isadora Resendez RN) Mother Asthma Diabetes mellitus Hypertension Hyperlipidemia Influenza Father Hypertension Brother Autism Grandfather Old age Grandmother Fall Grandfather Cancer Family estrangement Grandmother Diabetes mellitus Family estrangement Family/Other Hypertension Social History marital status: number of children: 3 household members: spouse and children lives independently: Yes caregiver/support person: No pets and animals: Yes (X 2 dogs) occupational status: unemployed current occupational exposures/hazards: No special william needs: No Smoking Status: Former smoker (Quit long ago ) Tobacco: How many years used: 2 second hand exposure: No alcohol intake: former (Pre- : Social) substance use type: does not use Evaluation Evaluation Baseline heart rate: 125 Variability: Moderate (11-25) monitor accelerations: Present Monitor Decelerations: Absent Contraction Frequency (minutes): 0 Category of Tracing: Reactive Status: Category l Diagnosis, Plan/Disposition Final Diagnosis (1) Antiphospholipid antibody syndrome: Status: Acute (2) 33 weeks gestation of : Status: Acute Plan/Disposition Plan: Reactive nonstress test. Continue routine OB appointments and weekly nonstress test. OB Disposition: home
== END 2021-06-08 11:55 | disposition home or self-care (01) ==
LOC: LABOR 11:25 → OB 06-14 07:41
PROVIDERS: PCP Nurse Practitioner; Referring Provider Nurse Practitioner; Visit Provider Nurse Practitioner
DX: O99.113 Other diseases of the blood and blood-forming organs and certain disorders involving the immune mechanism complicating pregnancy, third trimester (principal); D68.61 Antiphospholipid syndrome; Z3A.33 33 weeks gestation of pregnancy
CPT/HCPCS: 59025; G0378; G0379

== ENCOUNTER 2021-06-22 10:04 | Observation (INO) | payer OTHER, MEDICAID, SELFPAY ==
[2018-07-16 15:27] VITALS: BMI 28.1
== END 2021-06-22 10:50 | disposition home or self-care (01) ==
PROVIDERS: Admitting Provider Obstetrics & Gynecology; PCP Nurse Practitioner; Referring Provider Obstetrics & Gynecology; Visit Provider Obstetrics & Gynecology
DX: O99.113 Other diseases of the blood and blood-forming organs and certain disorders involving the immune mechanism complicating pregnancy, third trimester (principal); D68.61 Antiphospholipid syndrome; Z3A.35 35 weeks gestation of pregnancy
CPT/HCPCS: 59025; G0378; G0379

== ENCOUNTER 2021-06-28 12:26 | Outpatient (CLI) | payer OTHER, MEDICAID, SELFPAY ==
[2018-07-16 15:27] VITALS: BMI 28.1
== END 2021-06-28 13:27 | disposition home or self-care (01) ==
LOC: LABOR 13:12 → OB 06-30 07:33
PROVIDERS: PCP Nurse Practitioner; Referring Provider Obstetrics & Gynecology; Visit Provider Obstetrics & Gynecology
DX: O99.113 Other diseases of the blood and blood-forming organs and certain disorders involving the immune mechanism complicating pregnancy, third trimester (principal); D68.61 Antiphospholipid syndrome; Z3A.36 36 weeks gestation of pregnancy
CPT/HCPCS: 59025; G0378; G0379

== ENCOUNTER 2021-07-06 19:23 | Inpatient (IN) | payer OTHER, MEDICAID, SELFPAY ==
[2018-07-16 15:27] VITALS: BMI 28.1
[2021-07-06] MEDS: LACTATED RINGERS 1,000 ML 1000 ML IV (20:35)
[2021-07-06 20:54] LABS: Appearance Urine UA CLEAR; Bilirubin Urine UA NEGATIVE (NEGATIVE); Color Urine UA YELLOW; Glucose Urine UA NEGATIVE (Negative); Ketones Urine UA NEGATIVE (NEGATIVE); Leukocyte Esterase Urine UA NEGATIVE (NEGATIVE); Nitrite Urine UA NEGATIVE (Negative); Occult Blood Urine UA NEGATIVE (Negative); Protein Urine UA TRACE (Negative); Specific Gravity Urine UA 1.015 (1.000-1.035); Urobilinogen Urine UA 0.2 E.U./dL (0.2)
[2021-07-06 21:07] LABS: Bacteria Urine Occasional (0-1); Culture Indicated Urine Cult Not Indicated; RBC Urine 0-1/HPF (0-5/HPF); Squamous Epithelial Cell Urine 0-1 /HPF (0-5/HPF); WBC Urine 0-1/HPF (0-5/HPF); pH Urine UA 5.5 (4.5-8.0)
[2021-07-06 21:09] LABS: Add Manual Diff / Slide Review NO; Basophils Absolute Auto 100 /uL (0-100); Basophils Percent Auto 0.4 % (0-2); Eosinophils Absolute Auto 0 /uL (0-450); Eosinophils Percent Auto 0.3 % (2-4); Hematocrit 34.6 % (36-46); Hemoglobin 11.4 g/dL (12.0-16.0); Lymphocytes Absolute Auto 2100 /uL (1100-4500); Lymphocytes Percent Auto 14.9 % (25-40); Mean Corpuscular HGB Conc 32.9 % (30-36); Mean Corpuscular Volume 81.8 fL (80-100); Monocytes Absolute Auto 900 /uL (0-900); Monocytes Percent Auto 6.3 % (3-14); Neutrophils Absolute Auto 11100 /uL (1500-7000); Neutrophils Percent Auto 78.1 % (50-75); Platelet Count 327 X10^3/uL (150-400); Red Blood Cell Count 4.23 X10^6/uL (4.0-5.2); Red Cell Distribution Width 13.8 % (11.6-14.8); White Blood Cell Count 14.2 X10^3/uL (4.5-11.0)
[2021-07-06 21:12] LABS: Creatinine Urine Random 119.5 mg/dL; Protein (Total) Urine Random 17 mg/dL (0-12); Protein Creatinine Ratio Urine 0.14 GRAM/24H
[2021-07-06 21:13] LABS: Alanine Aminotransferase 11 IU/L (<35); Alkaline Phosphatase 141 U/L (38-126); Aspartate Aminotransferase 18 IU/L (14-36); Bilirubin Total 0.4 mg/dL (0.2-1.3); Blood Urea Nitrogen 7 mg/dL (7-17); Calcium 9.2 mg/dL (8.4-10.2); Carbon Dioxide 18 mmol/L (22-32); Chloride 106 mmol/L (98-107); Estimated Glomerular Filt Rate > 60 mL/min (>60); Glucose 82 mg/dL (70-100); HEMOLYSIS < 15 (0-50); Sodium 133 mmol/L (137-145)
[2021-07-06 21:36] LABS: COVID19 -Nasal RAPID Negative (Negative)
[2021-07-06 23:19] VITALS: BP 134/90; PULSE 82
[2021-07-06] MEDS: LABETALOL 100 MG TABLET PO (23:19)
[2021-07-06] MEDS: LACTATED RINGERS 1,000 ML 100 ML IV (23:20)
[2021-07-07] MEDS: ACETAMINOPHEN 325 MG TABLET 650 MG PO ×2 (03:42→22:38)
[2021-07-07 08:12] VITALS: BP 156/92
[2021-07-07] MEDS: LABETALOL 100 MG TABLET PO (08:12)
[2021-07-07] MEDS: LACTATED RINGERS 1,000 ML 100 ML IV ×3 (08:13→15:26)
[2021-07-07] MEDS: OXYTOCIN PREMIX 30 UNIT/500 ML PLAST..BAG IV (08:36)
[2021-07-07 09:39] VITALS: BP 147/91
[2021-07-07 09:39] LABS: Add Manual Diff / Slide Review NO; Basophils Absolute Auto 0 /uL (0-100); Basophils Percent Auto 0.3 % (0-2); Eosinophils Absolute Auto 0 /uL (0-450); Eosinophils Percent Auto 0.2 % (2-4); Hematocrit 32.1 % (36-46); Hemoglobin 10.7 g/dL (12.0-16.0); Lymphocytes Absolute Auto 1600 /uL (1100-4500); Lymphocytes Percent Auto 16.3 % (25-40); Mean Corpuscular HGB Conc 33.3 % (30-36); Mean Corpuscular Hemoglobin 27.3 PG (26-34); Monocytes Absolute Auto 500 /uL (0-900); Monocytes Percent Auto 5.2 % (3-14); Neutrophils Absolute Auto 7600 /uL (1500-7000); Platelet Count 280 X10^3/uL (150-400); Red Blood Cell Count 3.92 X10^6/uL (4.0-5.2); White Blood Cell Count 9.8 X10^3/uL (4.5-11.0)
[2021-07-07 09:45] LABS: Prothrombin Time 11.6 SECONDS (10.1-12.7)
[2021-07-07] MEDS: ACETAMINOPHEN 325 MG TABLET 1000 MG PO (09:58)
[2021-07-07 10:57] LABS: Strep Grp B PCR NEG for Grp B Strep
[2021-07-07] MEDS: HYDRALAZINE 20 MG/ML VIAL 5 MG IV ×2 (15:15→16:47)
[2021-07-07] MEDS: ACETAMINOPHEN 325 MG TABLET 975 MG PO (15:21)
--- NOTE | 2021-07-07 18:12 | PM.OBHP.IH.1 ---
OB HPI Date/Time Date of admission: 07/07/21 Date Patient Seen: 07/07/21 Time Patient Seen: 07:30 History of Present Condition Chief complaint: observation of labor MYRON Calculator Estimated Delivery Date Method Current WG Current Estimate 07/22/21 Ultrasound #1 37w 6d Other Estimates 07/07/21 LMP (Uncertain) 40w 0d Estimated Gestational Age (weeks): 37+6 : 7 Para: 3 Narrative: Patient presented last night with headache and diarrhea. She was found to have labile blood pressures. She was kept overnight. Had normal preeclampsia labs. Still with diarrhea this morning. A decision was made to keep the patient and induce due to the blood pressure and 38 weeks gestation. care: good care, initiated at week # (9), number of visits (8) and pounds weight gain (29) Dating criteria OB: LMP confirmed by 1st trimester US Ultrasounds: normal 1st trimester US and normal mid trimester US Obstetrical complications: gestational hypertension Medical complications OB: immunologic (Antiphospholipid antibody syndrome, on Lovenox, then Heparin starting at 36 weeks) Indications Indication for induction OB: gestational HTN/pre-eclampsia Preadmission Labs Last OB Lab Results: Blood Type O Positive 07/07/21 09:10 07/07/21 Antibody Screen Negative 07/07/21 09:10 07/07/21 Hematocrit 32.1 % (36-46) L 07/07/21 09:10 07/07/21 Hemoglobin 10.7 g/dL (12.0-16.0) L 07/07/21 09:10 07/07/21 Hepatitis B Surface Antigen Negative s/c (NEGATIVE) 03/21/21 12:48 03/21/21 Hepatitis C Antibody Negative s/c (NEGATIVE) 03/21/21 12:48 03/21/21 Rubella Antibody 10.0 IU/mL (>15) L 03/21/21 12:48 03/21/21 Varicella-Zoster IgG Antibody 432 index (Immune >165) 03/21/21 12:48 03/21/21 Glucose 1 Hour 113 mg/dL (76-139) 05/21/18 12:19 05/21/18 Group B Streptococcus (PCR) Neg for grp b strep 07/07/21 09:48 07/07/21 -: Chlamydia screen: negative, Gonorrhea screen: negative and Urine: negative -: PAP smear: Normal Genetic Screens: Quad screen: Normal External Labs -: Urine: negative Prior (ies) Past Pregnancies Del. Date GA/Weeks Labor Lgth Wt Sex Route Outcome Anesthesia Place Delv Breastfeed Preg Comp Name 07/05/12 40 9 5 lb 10 oz Female vaginal live - full term none IH Usha/Briseida 18 months oligohydramnios Ela 02/02/13 14 spontaneous WA spontaneous 02/26/13 6-8 spontaneous WA spontaneous 02/26/14 6-8 spontaneous WA spontaneous 04/14/16 39 9 5 lb 15 oz Female vaginal live - full term none IH Dr Goins 24 months other Emilie 08/20/17 39.1 6 6 lb 8 oz Female vaginal live - full term epidural IH Dr Goins 24+ other Ally Delivery Date: 07/05/12 Last Updated by: Isadora Resendez R.N. *Induction with Pitocin. *Tongue-tied. *No issues PP. Delivery Date: 02/02/13 Last Updated by: Isadoar Resendez R.N. *No D&C. *Struggled PP with the loss. Delivery Date: 02/26/13 Last Updated by: Isadora Resendez R.N. *Unsure of exact dating. Delivery Date: 02/26/14 Last Updated by: Isadora Resendez R.N. *Unsure of exact dating. Delivery Date: 04/14/16 Last Updated by: Isadora Resendez R.N. *Tongue-tie : clipped. *Did well post- : good support from Mica. Delivery Date: 08/20/17 Last Updated by: Isadora Resendez R.N. *Pitocin. *Lip tie and posterior tie : some struggle breast feeding. Did not clip. *Anxiety 3rd Trimester and PP. Evaluation Evaluation Baseline heart rate: 135 Variability: Moderate (11-25) monitor accelerations: Present Monitor Decelerations: Absent Dilation (cm): 1 Effacement (%): 50 station: -1 Position of cervix: mid Consistency: medium [facility] Medical History (Updated 06/22/21 @ 10:05 by Ines Goins MD) Acne Antiphospholipid antibody positive Anxiety (~2018) Gallstone of bile duct with obstruction (2018) History of multiple miscarriages (2013) History of recurrent ear infection History of urinary retention SAB (spontaneous ) (~2013) SAB (spontaneous ) (~2014) (spontaneous vaginal delivery) (~07/05/12) (spontaneous vaginal delivery) (~08/20/18) (spontaneous vaginal delivery) (~04/21/16) Surgical History (Updated 12/07/20 @ 10:53 by Isadora Resendez RN) Anesthesia S/P cholecystectomy (07/15/17) Family History (Updated 12/07/20 @ 10:52 by Isadora Resendez RN) Mother Asthma Diabetes mellitus Hypertension Hyperlipidemia Influenza Father Hypertension Brother Autism Grandfather Old age Grandmother Fall Grandfather Cancer Family estrangement Grandmother Diabetes mellitus Family estrangement Family/Other Hypertension Social History marital status: number of children: 3 household members: spouse and children lives independently: Yes caregiver/support person: No pets and animals: Yes (X 2 dogs) occupational status: unemployed current occupational exposures/hazards: No special william needs: No Smoking Status: Former smoker (Quit long ago ) Tobacco: How many years used: 2 second hand exposure: No alcohol intake: former (Pre- : Social) substance use type: does not use Meds Home Medications and Allergies Home Medications Medication Instructions Recorded Confirmed Type prenat.vits,aaliyah,rip-xssy-myzfg 1 tab PO DAILY 12/07/20 06/22/21 History pantoprazole 40 mg tablet,delayed 40 mg PO DAILY #30 tab 01/17/21 07/07/21 Rx release (Protonix) heparin (porcine) 5,000 unit/mL (1 5,000 unit SUBCUT Q12H 21 Days #42 06/22/21 07/07/21 Rx mL) injection cartridge ml Allergies Allergy/AdvReac Type Severity Reaction Status Date / Time codeine [CODEINE] AdvReac Severe Anaphylaxis Verified 06/22/21 09:38 OB Exam Narrative Exam Narrative: Generally: No acute distress Lungs: Clear to auscultation bilaterally Cardiovascular: Regular rate and rhythm Fundal height: 38 cm Estimated weight: 6-1/2 lb Extremities: Trace edema, 1+ DTRs Objective Labs Result Diagrams: 07/07/21 09:10 07/06/21 20:35 Labs: Laboratory Results - last 24 hr 07/06/21 07/06/21 07/06/21 20:30 20:30 20:35 WBC 14.2 H RBC 4.23 Hgb 11.4 L Hct 34.6 L MCV 81.8 MCH 27.0 MCHC 32.9 RDW 13.8 Plt Count 327 Neut % (Auto) 78.1 H Lymph % (Auto) 14.9 L Bond % (Auto) 6.3 Eos % (Auto) 0.3 L Baso % (Auto) 0.4 Neut # (Auto) 24350 H Lymph # (Auto) 2100 Bond # (Auto) 900 Eos # (Auto) 0 Baso # (Auto) 100 PT INR Sodium Potassium Chloride Carbon Dioxide BUN Creatinine Estimated GFR BUN/Creatinine Ratio Glucose Calcium Total Bilirubin AST ALT Alkaline Phosphatase Total Protein Albumin Globulin Albumin/Globulin Ratio Urine Color Yellow Urine Appearance Clear Urine pH 5.5 Ur Specific [place] 1.015 Urine Protein Trace H Urine Glucose (UA) Negative Urine Ketones Negative Urine Occult Blood Negative Urine Nitrate Negative Urine Bilirubin Negative Urine Urobilinogen 0.2 Ur Leukocyte Esterase Negative Urine RBC 0-1/hpf Urine WBC 0-1/hpf Ur Squamous Epith Cells 0-1 /hpf Urine Bacteria Occasional (0-1) D Ur Culture Indicated? Cult not indicated U Random Total Protein 17 H Urine Creatinine 119.5 Protein/Creatinin Ratio 0.14 SARS-CoV-2 (PCR) Group B Strep (PCR) Blood Type Antibody Screen 07/06/21 07/06/21 07/07/21 20:35 21:10 09:10 WBC 9.8 RBC 3.92 L Hgb 10.7 L Hct 32.1 L MCV 82.0 MCH 27.3 MCHC 33.3 RDW 14.0 Plt Count 280 Neut % (Auto) 78.0 H Lymph % (Auto) 16.3 L Bond % (Auto) 5.2 Eos % (Auto) 0.2 L Baso % (Auto) 0.3 Neut # (Auto) 7600 H Lymph # (Auto) 1600 Bond # (Auto) 500 Eos # (Auto) 0 Baso # (Auto) 0 PT INR Sodium 133 L Potassium 4.0 Chloride 106 Carbon Dioxide 18 L BUN 7 Creatinine 0.54 Estimated GFR > 60 BUN/Creatinine Ratio 13.0 Glucose 82 Calcium 9.2 Total Bilirubin 0.4 AST 18 ALT 11 Alkaline Phosphatase 141 H Total Protein 8.0 Albumin 4.0 Globulin 4.0 Albumin/Globulin Ratio 1.0 Urine Color Urine Appearance Urine pH Ur Specific [place] Urine Protein Urine Glucose (UA) Urine Ketones Urine Occult Blood Urine Nitrate Urine Bilirubin Urine Urobilinogen Ur Leukocyte Esterase Urine RBC Urine WBC Ur Squamous Epith Cells Urine Bacteria Ur Culture Indicated? U Random Total Protein Urine Creatinine Protein/Creatinin Ratio SARS-CoV-2 (PCR) Negative Group B Strep (PCR) Blood Type Antibody Screen 07/07/21 07/07/21 07/07/21 09:10 09:10 09:48 WBC RBC Hgb Hct MCV MCH MCHC RDW Plt Count Neut % (Auto) Lymph % (Auto) Bond % (Auto) Eos % (Auto) Baso % (Auto) Neut # (Auto) Lymph # (Auto) Bond # (Auto) Eos # (Auto) Baso # (Auto) PT 11.6 INR 1.0 Sodium Potassium Chloride Carbon Dioxide BUN Creatinine Estimated GFR BUN/Creatinine Ratio Glucose Calcium Total Bilirubin AST ALT Alkaline Phosphatase Total Protein Albumin Globulin Albumin/Globulin Ratio Urine Color Urine Appearance Urine pH Ur Specific [place] Urine Protein Urine Glucose (UA) Urine Ketones Urine Occult Blood Urine Nitrate Urine Bilirubin Urine Urobilinogen Ur Leukocyte Esterase Urine RBC Urine WBC Ur Squamous Epith Cells Urine Bacteria Ur Culture Indicated? U Random Total Protein Urine Creatinine Protein/Creatinin Ratio SARS-CoV-2 (PCR) Group B Strep (PCR) Neg for grp b strep Blood Type O Positive Antibody Screen Negative Assessment and Plan Assessment and Plan Assessment and Plan narrative: Assessment: 35-year-old 7 para 3 at 37 and 6 seventh weeks gestation with gestational hypertension Antiphospholipid antibody syndrome, last dose of heparin last night Plan: Pitocin per protocol 2 PT/ PTT Epidural as necessary AROM when able IV hydralazine as needed for severe range blood pressures Labetalol 100 mg p.o. b.i.d. Time Spent with Patient Total time spent with greater than 50% in coordination of care (as documented) at patient's floor/unit and/or counseling patient:: 15-24 minutes
--- NOTE | 2021-07-07 18:32 | PM.OBPNLAB ---
Date/Time Date Patient Seen: 07/07/21 Time Patient Seen: 11:30 Pain Control Pain control: tolerating well Pelvic Exam Dilation (cm): 3 Effacement (%): 80 station: -1 Amniotic membrane status: Intact Contractions Contractions on admission: regular Monitor mode: External Pitocin rate (mU/min): 12 Contraction frequency (min): 3 Contraction duration (min): 1 Contraction pattern: Regular Contraction intensity: Moderate Status status: Category l Heart Rate Baseline: 135 Monitor Accelerations: Present Monitor Decelerations: Absent Monitor Variability: Moderate Assessment and Plan Assessment: induction ongoing Comments: AROM with clear amniotic fluid Epidural prn
--- NOTE | 2021-07-07 18:35 | PM.OBPNLAB ---
Date/Time Date Patient Seen: 07/07/21 Time Patient Seen: 15:00 Pain Control Pain control: epidural Pelvic Exam Dilation (cm): 5 Effacement (%): 80 station: 0 Amniotic membrane status: Ruptured Contractions Monitor mode: External Pitocin rate (mU/min): 0 Contraction frequency (min): 3 Contraction pattern: Regular Contraction intensity: Strong/Firm Status status: Category ll Heart Rate Baseline: 135 Monitor Accelerations: Present Monitor Decelerations: Variable Monitor Variability: Moderate Assessment and Plan Assessment: active labor and induction ongoing Comments: Leave Pitocin off for a while Side to side
[2021-07-07] MEDS: LOPERAMIDE 2 MG CAPSULE 4 MG PO (18:36)
--- NOTE | 2021-07-07 18:37 | PM.OBPNLAB ---
Date/Time Date Patient Seen: 07/07/21 Time Patient Seen: 18:38 Pain Control Pain control: epidural (not working well) Pelvic Exam Dilation (cm): 5 Effacement (%): 85 station: 0 Amniotic membrane status: Ruptured Contractions Contractions on admission: none Monitor mode: External Pitocin rate (mU/min): 6 Contraction frequency (min): 3 Contraction pattern: Regular Contraction intensity: Strong/Firm Status status: Category l Heart Rate Baseline: 125 Monitor Accelerations: Present Monitor Decelerations: Absent Monitor Variability: Moderate Assessment and Plan Assessment: active labor and induction ongoing Comments: Side to side Consult to anesthesia for epidural bolus vs replacement
--- NOTE | 2021-07-07 20:39 | PM.OBPRVD ---
Events: Induced HTN Labor & Delivery Delivery date: 07/07/21 Intrapartal Events: Deceleration Cervical ripening method: none Induction method: per pitocin protocol Delivery augmentation: rupture of membranes Delivery monitor: external FHT and external uterine Route of delivery: Episiotomy description: None L&D Laceration Description: Perineal - 1st Degree and Vaginal - 1st Degree Delivery repair: chromic Estimated blood loss (mL): 100 Anesthesia Type: Epidural Complications: None Narrative: Patient complete and pushed with 3 contractions. At 8:12 p.m., a live male infant delivered spontaneously over an intact perineum in the KELSEY presentation. No nuchal cord. The remainder of the body delivered without difficulty and was placed on mom's abdomen. A true knot in the cord was noted. After the cord stopped pulsing. The cord was double clamped and cut. Cord bloods were obtained. The placenta delivered intact with a three-vessel cord at 8:25 p.m. Pitocin was given in the IV fluids prior to placental delivery. The fundus was massaged to firm. A first-degree perineal/vaginal laceration was repaired with 2-0 chromic in the usual fashion. Hemostasis was achieved. Estimated blood loss 100 cc. Apgars 9 at 1 minute and 9 at 5 minutes. Mom and infant stable to recovery. weight 6 lb 2 oz. [place] Baby 1: Infant gender: Male Presentation: vertex Position: Right Occiput Anterior Placenta delivery description: Spontaneous Cord Vessel Description: True Knot score (1 min): 9 score (5 min): 9 score (10 min): 2 weight: 6 lb 2 oz Plan for aftercare: Routine care
[2021-07-07] MEDS: DERMOPLAST SPRAY 20% 60 ML 1 SPRAY TOP (22:37)
[2021-07-08] MEDS: LANOLIN OINT 7 GM 1 APPLIC TOP (03:35)
[2021-07-08] MEDS: IBUPROFEN 600 MG TABLET PO ×3 (03:35→17:30)
[2021-07-08 05:55] LABS: Hemoglobin 10.1 g/dL (12.0-16.0)
[2021-07-08] MEDS: ACETAMINOPHEN 325 MG TABLET 650 MG PO ×2 (06:57→13:26)
[2021-07-08] MEDS: OXYCODONE IR 5 MG TABLET PO ×3 (06:58→17:30)
--- NOTE | 2021-07-08 12:11 | P.DS_ITS ---
Discharge Providers Provider Date of admission: 07/06/21 19:23 Discharge Date: 07/08/21 Primary care physician: DIONNA Gay Consults: 07/08/21 05:49 Consult to Advertising Operations Coordinator Routine Comment: History PP Depression 07/08/21 20:36 Consult to Base Draw Operator Routine Comment: Discharge provider: Ines Goins MD Summary Hospital Course Date Patient Seen: 07/08/21 Time Patient Seen: 12:11 Diagnoses: 37 and 6 seventh weeks gestation Diarrhea Nonreassuring testing Induction of labor Epidural analgesia Artificial rupture of membranes Spontaneous vaginal delivery Hospital Course: Patient is a 35-year-old 7 para 4 who presented on May 06, 2021 with diarrhea. Upon arrival to the center she had very labile blood pressures, some of them going up to 160s over 100s. She was observed overnight and given labetalol. On the morning of July 07, 2021 an induction was initiated with Pitocin. Artificial rupture of membranes was performed with clear amniotic fluid. She received an epidural for pain management. She progressed to complete dilation and had a spontaneous vaginal delivery with a first-degree vaginal/perineal laceration. Her blood pressures were in the normal range. going well. Bleeding tapering. She is using some oxycodone for cramping. She is discharged home. Peripartum Data Infant Delivery Method: Natural Vaginal Laceration Description: Perineal - 1st Degree and Vaginal - 1st Degree Episiotomy description: None Procedures: Induction of labor with Pitocin Artificial rupture of membranes Spontaneous vaginal delivery Epidural analgesia complications: none Rives 1: Gender: Male Disposition of : home Status at Discharge Cognitive/behavioral status at discharge: oriented Functional status at discharge: independent ambulation Overall status at discharge: patient is progressing back to baseline Time Spent with Patient Time attestation: Total time spent providing and/or coordinating discharge services: Time spent: Less than 30 minutes Objective Labs Result Diagrams: 07/08/21 05:45 07/06/21 20:35 Labs: Laboratory Results - last 24 hr 07/08/21 05:45 Hgb 10.1 L Hct 30.0 L Exam Narrative Exam Narrative: Generally: Patient lying in bed on her right side, no acute distress Fundus: Firm at U-2 Extremities: Trace edema, negative Homans, 1+ DTRs Discharge Plan Discharge Plan Patient Disposition: Home Provider Discharge Comment: Call with fever, chills, or bleeding vaginally more than a pad in an hour Discharge orders & Medications Prescriptions: New oxycodone 5 mg tablet 5 mg PO Q4H PRN (Reason: pain) Qty: 14 0RF Continued prenat.vits,aaliyah,[id number] Tablet 1 tab PO DAILY 0RF Discontinued heparin (porcine) 5,000 unit/mL (1 mL) cartridge 5,000 unit SUBCUT Q12H 21 Days Qty: 42 0RF pantoprazole [Protonix] 40 mg tablet,delayed release (DR/EC) 40 mg PO DAILY Qty: 30 8RF Follow up/Referrals: Ines Goins MD [Physician] - 6 Weeks (Patient to stop by the office early next week for a blood pressure check) Diet/Activity/Treatments Diet: Regular Activity: Nothing in the vagina until 6 week visit Skin/Wound/Dressing Care Report to your healthcare provider any signs of infection, such as:: chills, fever, increased pain and unusual drainage Visit Report/Discharge Packet Instructions: Pre-eclampsia, DI for Labor and Delivery, Vaginal , DI for Prescription Opioid Use Discharge Data Primary Care Provider: Emilee Martínez
[2021-07-08] MEDS: LOPERAMIDE 2 MG CAPSULE PO (12:22)
== END 2021-07-08 18:30 | disposition home or self-care (01) | DRG 560 ==
PROVIDERS: Family Medicine; Admitting Provider Obstetrics & Gynecology; PCP Nurse Practitioner; Referring Provider Obstetrics & Gynecology; Visit Provider Obstetrics & Gynecology
DX: O13.4 Gestational [pregnancy-induced] hypertension without significant proteinuria, complicating childbirth (principal); Z3A.37 37 weeks gestation of pregnancy; Z37.0 Single live birth; O75.89 Other specified complications of labor and delivery; R19.7 Diarrhea, unspecified; R51.9 Headache, unspecified; O70.0 First degree perineal laceration during delivery; O76 Abnormality in fetal heart rate and rhythm complicating labor and delivery; O99.12 Other diseases of the blood and blood-forming organs and certain disorders involving the immune mechanism complicating childbirth; D68.61 Antiphospholipid syndrome; Z20.822 Contact with and (suspected) exposure to COVID-19
CPT/HCPCS: 01967; 36415; 59050; 59409; 80053; 81001; 82570; 84156; 85014; 85018; 85025; 85610; 86850; 86900; 86901; 87081; 87635; 87653; C9803; G0379; J0360; J2590

== ENCOUNTER 2021-07-12 17:34 | Inpatient (IN) | payer OTHER, MEDICAID, SELFPAY ==
[2018-07-16 15:27] VITALS: BMI 28.1
[2021-07-12] VITALS (27 sets, daily range): BP systolic 133–170; BP diastolic 73–103; PULSE 65–101; RESP 12–20; TEMP 36.2–36.9; O2SAT 95–98; BMI 29.6
--- NOTE | 2021-07-12 17:51 | DI.CT.S_ITS ---
PROCEDURE: CT ABDOMEN PELVIS W CON INDICATIONS: 35-year-old female with lower abdominal pain 5 days TECHNIQUE: After the administration of intravenous contrast, axial sections acquired from the lung bases to the pubic symphysis. Coronal and sagittal reformats were performed. For radiation dose reduction, the following was used: automated exposure control, adjustment of mA and/or kV according to patient size. COMPARISON: [facility], US, US OB >= 14 WEEKS FETUS, 06/22/2021, 10:00. FINDINGS: Lower thorax: The lung bases are clear. Heart size normal. No hiatal hernia. bilateral breast tissue noted. Liver: Normal in size and attenuation. No contour deformity present. Small subcentimeter right hepatic cyst. Biliary system: Cholecystectomy. No intra or extrahepatic bile duct dilation. Pancreas: Unremarkable without mass or inflammation evident. Spleen: Normal in size and density. Adrenals: Normal morphology and density. Reproductive system: uterus noted Urinary system: Normal renal size and attenuation. No renal calculi, hydronephrosis, or solid mass present. Urinary bladder unremarkable. Gastrointestinal system: The bowel is unremarkable without evidence of bowel obstruction or inflammation. The stomach appears unremarkable. Appendix: No findings to suggest acute appendicitis. Peritoneal spaces: No mesenteric or retroperitoneal adenopathy. No free air. No free fluid. Vasculature: The IVC, aorta and iliac vasculature are unremarkable. No CT evidence of ovarian vein thrombosis Abdominal wall: Abdominal wall intact without evidence of ventral or inguinal hernias. Musculoskeletal: Normal bone mineralization. No acute fractures. IMPRESSION: 1. No CT evidence of ovarian vein thrombosis. Follow-up ultrasound may be helpful for further evaluation. 2. uterus is within expected limits. Approved by: Jesus Gorman M.D. on 07/12/2021 at 17:39
[2021-07-12] MEDS: HYDROMORPHONE 0.5 MG INJ (18:02)
[2021-07-12 18:08] LABS: Hematocrit 31.7 % (36-46); Hemoglobin 10.6 g/dL (12.0-16.0); Mean Corpuscular HGB Conc 33.5 % (30-36); Mean Corpuscular Hemoglobin 27.4 PG (26-34); Mean Corpuscular Volume 81.6 fL (80-100); Platelet Count 388 X10^3/uL (150-400); Red Blood Cell Count 3.89 X10^6/uL (4.0-5.2); Red Cell Distribution Width 13.8 % (11.6-14.8); White Blood Cell Count 10.5 X10^3/uL (4.5-11.0)
[2021-07-12 18:12] LABS: Prothrombin Time 10.7 SECONDS (10.1-12.7)
[2021-07-12 18:15] LABS: Alanine Aminotransferase 21 IU/L (<35); Alkaline Phosphatase 122 U/L (38-126); Aspartate Aminotransferase 26 IU/L (14-36); Bilirubin Total 0.2 mg/dL (0.2-1.3); Blood Urea Nitrogen 14 mg/dL (7-17); Calcium 9.7 mg/dL (8.4-10.2); Carbon Dioxide 23 mmol/L (22-32); Chloride 105 mmol/L (98-107); Estimated Glomerular Filt Rate > 60 mL/min (>60); Globulin 3.9 g/dL (1.7-4.1); Glucose 112 mg/dL (70-100); HEMOLYSIS < 15 (0-50); Lactate Dehydrogenase 514 U/L (313-618); Magnesium 1.7 mg/dL (1.6-2.3); PTT Partial Thromboplastin Tim 31 SECONDS (26.4-36.2); Potassium 4.1 mmol/L (3.4-5.1); Sodium 138 mmol/L (137-145); Total Protein 7.9 g/dL (6.3-8.2); Uric Acid 6.6 mg/dL (2.5-6.2)
[2021-07-12 18:16] LABS: Lactate (Lactic Acid) 1.4 mmol/L (0.7-2.1)
--- NOTE | 2021-07-12 18:20 | DI.US.S_ITS ---
PROCEDURE: US PELVIC COMPLETE INDICATIONS: 5 days post , llq pain, ? retained POC TECHNIQUE: Real-time scanning was performed of the pelvic organs, with image documentation. Additional endovaginal scanning was necessary due to incomplete visualization of the adnexal and endometrial structures by transabdominal scanning. COMPARISON: [facility], CT, CT ABDOMEN PELVIS W CON, 07/12/2021, 18:02. FINDINGS: Uterus: Uterus is anteverted and enlarged in size at 17.4 x 7.6 x 9.0 cm. The myometrium is heterogeneous. The endometrium measures 16.4 mm combined thickness. Endometrium is heterogeneous. No areas of increased vascularity are identified. Mild fluid is present. Ovaries: The right ovary measures 2.4 x 1.3 x 0.9 cm. The left ovary measures 2.4 x 1 point by 1.4 cm. The ovaries have a normal sonographic appearance. Less than 12 follicles can be seen in each ovary. No adnexal masses are seen. Other: No pathologic free abdominal or pelvic fluid. IMPRESSION: Enlarged uterus. Heterogeneous thickened endometrium without definitive foci of increased vascularity. No definitive retained products of conception are identified. We strive to produce accurate, complete, and clear reports of imaging services. To assist us in improving patient care, this report was composed using standard report templates and voice recognition software. Therefore, it may contain abnormal punctuation, insertions and/or omissions. Occasional wrong-word or sound-alike substitutions may occur. Though we review the report and make efforts to correct it, we do recommend that the report be read carefully in proper context to recognize any text inaccuracies. Dictated by: Karena Mayo M.D. on 07/12/2021 at 19:54 Approved by: Karena Mayo M.D. on 07/12/2021 at 19:56
[2021-07-12 18:54] LABS: Appearance Urine UA CLEAR; Bilirubin Urine UA NEGATIVE (NEGATIVE); Color Urine UA YELLOW; Glucose Urine UA NEGATIVE (Negative); Ketones Urine UA NEGATIVE (NEGATIVE); Leukocyte Esterase Urine UA TRACE (NEGATIVE); Nitrite Urine UA NEGATIVE (Negative); Occult Blood Urine UA NEGATIVE (Negative); Protein Urine UA NEGATIVE (Negative); Specific Gravity Urine UA <=1.005 (1.000-1.035); Urobilinogen Urine UA 0.2 E.U./dL (0.2)
[2021-07-12 19:08] LABS: Bacteria Urine None Seen; Culture Indicated Urine Specimen Cultured; RBC Urine None Seen (0-5/HPF); Squamous Epithelial Cell Urine None Seen (0-5/HPF); WBC Urine 0-1/HPF (0-5/HPF)
[2021-07-12 19:13] LABS: Add Manual Diff / Slide Review NO; Basophils Percent Auto 0.3 % (0-2); Eosinophils Percent Auto 1.2 % (2-4); Lymphocytes Percent Auto 21.6 % (25-40); Monocytes Percent Auto 6.6 % (3-14); Neutrophils Percent Auto 70.3 % (50-75)
[2021-07-12 19:14] LABS: Basophils Absolute Auto 0 /uL (0-100); Eosinophils Absolute Auto 100 /uL (0-450); Lymphocytes Absolute Auto 2300 /uL (1100-4500); Monocytes Absolute Auto 700 /uL (0-900); Neutrophils Absolute Auto 7400 /uL (1500-7000)
[2021-07-12] MEDS: HYDROMORPHONE 1 MG INJ IV ×2 (19:20→20:22)
[2021-07-12] MEDS: SODIUM CHLORIDE 0.9% 1,000 ML 1000 ML IV (19:20)
--- NOTE | 2021-07-12 19:31 | ED.PREGNANCY ---
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 Patient states that her symptoms started acutely earlier this afternoon as left lower quadrant pain that sometimes wraps to the left flank. Patient denies fever, chills, chest pain, shortness of breath, nausea, vomiting, dysuria, lightheadedness, dizziness, syncope. Patient endorses normal quantity and quality of lochia. Denies foul-smelling lochia. Patient is not currently on anticoagulation. Patient was on anticoagulation during her , which was stopped just prior to her delivery. Patient does not normally take anticoagulations in the non state. Patient was seen by her hot knife foxing cutter Dr. Goins, who noted that she was hypertensive in the 150s to 160s systolic, prescribed labetalol. Related Data Home Medications Medication Instructions Recorded Confirmed prenat.vits,aaliyah,[id number] 1 tab PO DAILY 12/07/20 07/08/21 Previous Rx's Medication Instructions Recorded oxycodone 5 mg tablet 5 mg PO Q4H PRN #14 tab 07/08/21 cefuroxime axetil 500 mg tablet 500 mg PO BID #14 tab 07/13/21 labetalol 200 mg tablet 200 mg PO BID #60 tab 07/13/21 Allergies Allergy/AdvReac Type Severity Reaction Status Date / Time codeine [CODEINE] AdvReac Severe Anaphylaxis Verified 07/12/21 17:47 Review of Systems <Olga Costa PA-C - Last Filed: 07/12/21 21:11> Review of Systems ROS Unobtainable: All systems reviewed & are unremarkable except as noted in HPI and below Constitutional Constitutional: Denies chills, Denies fatigue, Denies fever(s), Denies frequent falls, Denies lethargy and Denies weakness Eyes Eyes: Denies change in vision, Denies eye discharge, Denies irritation and Denies loss of vision ENT Ears, Nose, Mouth, and Throat: Denies change in voice, Denies dizziness, Denies neck pain, Denies sore throat and Denies throat swelling Cardiovascular Cardiovascular: Denies chest pain, Denies irregular heart rhythm, Denies lightheadedness, Denies palpitations, Denies dyspnea, Denies dyspnea on exertion and Denies orthopnea Respiratory Respiratory: Denies cough, Denies dyspnea, Denies dyspnea on exertion and Denies wheezing Gastrointestinal Gastrointestinal: Reports abdominal pain, Denies change in bowel habits, Denies diarrhea, Denies nausea and Denies vomiting Genitourinary Genitourinary: Denies hematuria, Denies flank pain, Denies urinary incontinence and Denies urinary urgency Musculoskeletal Musculoskeletal: Denies back pain, Denies muscle weakness, Denies neck pain, Denies numbness and Denies tingling Integumentary/Breasts Skin/Breast: Denies pruritus, Denies erythema, Denies rash and Denies wounds Neurologic Neurologic: Denies behavioral changes, Denies confusion, Denies dizziness, Denies frequent falls, Denies loss of vision, Denies numbness, Denies tingling and Denies weakness Psychiatric Psychiatric: Denies anxiety, Denies behavioral changes, Denies confusion, Denies depression, Denies homicidal ideation and Denies suicidal ideation Endocrine Endocrine: Denies fatigue, Denies flushing and Denies palpitations Hematologic/Lymphatic Hematologic/Lymphatic: Denies easy bruising Allergic/Immunologic Allergic/Immunologic: Denies urticaria, Denies throat swelling and Denies wheezing Exam <Olga Costa PA-C - Last Filed: 07/12/21 21:11> Initial Vital Signs Initial Vital Signs: Vital Signs Temperature 98.5 F 07/12/21 17:42 Pulse Rate 101 H 07/12/21 17:42 Respiratory Rate 20 07/12/21 17:42 Blood Pressure 168/101 H 07/12/21 17:42 Pulse Oximetry 96 07/12/21 17:42 Const General: cooperative, healthy appearing and comfortable HENIA Head: normal to inspection Eyes General: Yes appearance normal, both eyes and all related structures Resp Effort & Inspection: normal respiratory effort Auscultation: clear to auscultation bilaterally Cardio Rate: regular rate Rhythm: regular rhythm GI Inspection: normal to inspection General: No CVA tenderness Back/Spine/Pelvis Back: normal to inspection Skin General: no rashes or lesions noted Neuro General: patient alert, patient awake and patient oriented x3 Extrem General: normal to inspection and full ROM Psych Appearance: grossly normal Mental Status: mental status grossly normal <Sandra Mariano DO - Last Filed: 07/15/21 07:05> Initial Vital Signs Initial Vital Signs: Vital Signs Temperature 98.5 F 07/12/21 17:42 Pulse Rate 101 H 07/12/21 17:42 Respiratory Rate 20 07/12/21 17:42 Blood Pressure 168/101 H 07/12/21 17:42 Pulse Oximetry 96 07/12/21 17:42 Course <Olga Costa PA-C - Last Filed: 07/12/21 21:11> Orders Ordered: Discontinued Medications Acetaminophen (Acetaminophen 325 Mg Tablet) 650 mg PO Q6HR PRN PRN Reason: Fever/Mild Pain (1-3) Last Admin: 07/13/21 09:14 Dose: 650 mg Documented by: CLEM Cefdinir (Cefdinir 300 Mg Capsule) 300 mg PO BID PAO Cephalexin HCl (Cephalexin 250 Mg Capsule) 500 mg PO TID PAO Last Admin: 07/13/21 10:08 Dose: 500 mg Documented by: CLEM Hydromorphone HCl (Hydromorphone 1 Mg Inj) 1 mg IV NOW ONE Stop: 07/12/21 17:52 Last Admin: 07/12/21 19:20 Dose: 1 mg Documented by: ERNIE Hydromorphone HCl (Hydromorphone 1 Mg Inj) 1 mg IV NOW ONE Stop: 07/12/21 20:14 Last Admin: 07/12/21 20:22 Dose: 1 mg Documented by: CASEY Hydromorphone HCl (Hydromorphone 1 Mg Inj) 1 mg IV Q2H PRN PRN Reason: Pain, Severe (7-10) Hydromorphone HCl (Hydromorphone 4 Mg Tablet) 4 mg PO Q4HR PRN PRN Reason: Pain, Moderate (4-6) Hydromorphone HCl (Hydromorphone 0.5 Mg Inj) 0.5 mg IV NOW ONE Stop: 07/12/21 17:55 Last Admin: 07/12/21 21:37 Dose: Not Given Documented by: ERNIE Sodium Chloride (Normal Saline 0.9%) 1,000 mls @ 1,000 mls/hr IV BOLUS ONE Stop: 07/12/21 20:02 Last Infusion: 07/12/21 20:23 Dose: 0 mls/hr Documented by: Admin: 07/12/21 19:20 Dose: 1,000 mls/hr Documented by: ERNIE Ondansetron HCl 8 mg/ Sodium (Chloride) 54 mls @ 216 mls/hr IV Q8HR PRN PRN Reason: Nausea And Vomiting Lactated Ringer's (Lactated Ringers) 1,000 mls @ 100 mls/hr IV CONT PAO Last Admin: 07/13/21 08:48 Dose: 100 mls/hr Documented by: Infusion: 07/13/21 08:11 Dose: 100 mls/hr Documented by: Infusion: 07/13/21 07:57 Dose: 100 mls/hr Documented by: Admin: 07/12/21 22:10 Dose: 100 mls/hr Documented by: MARY Calcium Gluconate 4.65 meq/ (Sodium Chloride) 60 mls @ 180 mls/hr IV NOW ONE Stop: 07/12/21 21:51 Magnesium Sulfate (Magnesium Sulfate) 4 gm in 100 mls @ 200 mls/hr IV NOW ONE Stop: 07/12/21 22:01 Last Infusion: 07/13/21 07:55 Dose: 0 mls/hr Documented by: MARY Cosigned by: CLEM Admin: 07/12/21 22:11 Dose: 200 mls/hr Documented by: MARY Cosigned by: JUANJOSE Magnesium Sulfate (Magnesium Sulfate) 20 gm in 500 mls @ 50 mls/hr IV CONT PAO Last Admin: 07/13/21 08:49 Dose: 50 mls/hr Documented by: CLEM Cosigned by: TESSIEODETone Infusion: 07/13/21 08:49 Dose: 0 mls/hr Documented by: CLEM Cosigned by: KRODER Infusion: 07/13/21 07:53 Dose: 0 mls/hr Documented by: MARY Cosigned by: CLEM Admin: 07/12/21 22:46 Dose: 50 mls/hr Documented by: MARY Cosigned by: LUPILLO Ibuprofen (Ibuprofen 400 Mg Tablet) 600 mg PO Q6H PRN PRN Reason: Pain, Mild (1-3) Last Admin: 07/13/21 03:24 Dose: 400 mg Documented by: MARY Ibuprofen (Ibuprofen 600 Mg Tablet) 600 mg PO Q6H PRN PRN Reason: Pain, Mild (1-3) Last Admin: 07/13/21 08:54 Dose: 600 mg Documented by: CLEM Labetalol HCl (Labetalol 20 Mg/4 Ml Syringe) 10 mg IV NOW ONE Stop: 07/12/21 19:30 Last Admin: 07/12/21 19:44 Dose: 10 mg Documented by: NGOZI Labetalol HCl (Labetalol 20 Mg/4 Ml Syringe) 20 mg IV NOW ONE Stop: 07/12/21 20:53 Last Admin: 07/12/21 21:02 Dose: 20 mg Documented by: CASEY Labetalol HCl (Labetalol 20 Mg/4 Ml Syringe) 10 mg IV Q1HR PRN PRN Reason: Hypertensive Emergency Labetalol HCl (Labetalol 100 Mg Tablet) 200 mg PO BID PAO Last Admin: 07/13/21 09:13 Dose: 200 mg Documented by: CLEM Vital Signs Vital signs: Vital Signs - 8 hr 07/12/21 17:42 07/12/21 18:03 07/12/21 18:22 Temperature 98.5 F Pulse Rate 101 H 81 76 Respiratory Rate 20 16 12 Blood Pressure 168/101 H 157/87 H 154/92 H Pulse Oximetry 96 98 98 07/12/21 18:44 07/12/21 19:22 07/12/21 19:23 Temperature Pulse Rate 80 84 92 H Respiratory Rate Blood Pressure 157/87 H Pulse Oximetry 97 97 96 07/12/21 19:30 07/12/21 19:31 07/12/21 19:44 Temperature Pulse Rate 91 H 83 Respiratory Rate Blood Pressure 158/93 H 158/93 H Pulse Oximetry 96 97 <Sandra Mariano DO - Last Filed: 07/15/21 07:05> Orders Ordered: Discontinued Medications Acetaminophen (Acetaminophen 325 Mg Tablet) 650 mg PO Q6HR PRN PRN Reason: Fever/Mild Pain (1-3) Last Admin: 07/13/21 09:14 Dose: 650 mg Documented by: CLEM Cefdinir (Cefdinir 300 Mg Capsule) 300 mg PO BID PAO Cephalexin HCl (Cephalexin 250 Mg Capsule) 500 mg PO TID PAO Last Admin: 07/13/21 10:08 Dose: 500 mg Documented by: CLEM Hydromorphone HCl (Hydromorphone 1 Mg Inj) 1 mg IV NOW ONE Stop: 07/12/21 17:52 Last Admin: 07/12/21 19:20 Dose: 1 mg Documented by: ERNIE Hydromorphone HCl (Hydromorphone 1 Mg Inj) 1 mg IV NOW ONE Stop: 07/12/21 20:14 Last Admin: 07/12/21 20:22 Dose: 1 mg Documented by: CASEY Hydromorphone HCl (Hydromorphone 1 Mg Inj) 1 mg IV Q2H PRN PRN Reason: Pain, Severe (7-10) Hydromorphone HCl (Hydromorphone 4 Mg Tablet) 4 mg PO Q4HR PRN PRN Reason: Pain, Moderate (4-6) Hydromorphone HCl (Hydromorphone 0.5 Mg Inj) 0.5 mg IV NOW ONE Stop: 07/12/21 17:55 Last Admin: 07/12/21 21:37 Dose: Not Given Documented by: ERNIE Sodium Chloride (Normal Saline 0.9%) 1,000 mls @ 1,000 mls/hr IV BOLUS ONE Stop: 07/12/21 20:02 Last Infusion: 07/12/21 20:23 Dose: 0 mls/hr Documented by: Admin: 07/12/21 19:20 Dose: 1,000 mls/hr Documented by: ERNIE Ondansetron HCl 8 mg/ Sodium (Chloride) 54 mls @ 216 mls/hr IV Q8HR PRN PRN Reason: Nausea And Vomiting Lactated Ringer's (Lactated Ringers) 1,000 mls @ 100 mls/hr IV CONT PAO Last Admin: 07/13/21 08:48 Dose: 100 mls/hr Documented by: Infusion: 07/13/21 08:11 Dose: 100 mls/hr Documented by: Infusion: 07/13/21 07:57 Dose: 100 mls/hr Documented by: Admin: 07/12/21 22:10 Dose: 100 mls/hr Documented by: MARY Calcium Gluconate 4.65 meq/ (Sodium Chloride) 60 mls @ 180 mls/hr IV NOW ONE Stop: 07/12/21 21:51 Magnesium Sulfate (Magnesium Sulfate) 4 gm in 100 mls @ 200 mls/hr IV NOW ONE Stop: 07/12/21 22:01 Last Infusion: 07/13/21 07:55 Dose: 0 mls/hr Documented by: MARY Cosigned by: CLEM Admin: 07/12/21 22:11 Dose: 200 mls/hr Documented by: MARY Cosigned by: YAMILAOSLI Magnesium Sulfate (Magnesium Sulfate) 20 gm in 500 mls @ 50 mls/hr IV CONT PAO Last Admin: 07/13/21 08:49 Dose: 50 mls/hr Documented by: CLEM Cosigned by: TESSIEODETone Infusion: 07/13/21 08:49 Dose: 0 mls/hr Documented by: CLEM Cosigned by: TESSIEODER Infusion: 07/13/21 07:53 Dose: 0 mls/hr Documented by: MARY Cosigned by: CLEM Admin: 07/12/21 22:46 Dose: 50 mls/hr Documented by: MARY Cosigned by: LUPILLO Ibuprofen (Ibuprofen 400 Mg Tablet) 600 mg PO Q6H PRN PRN Reason: Pain, Mild (1-3) Last Admin: 07/13/21 03:24 Dose: 400 mg Documented by: MARY Ibuprofen (Ibuprofen 600 Mg Tablet) 600 mg PO Q6H PRN PRN Reason: Pain, Mild (1-3) Last Admin: 07/13/21 08:54 Dose: 600 mg Documented by: CLEM Labetalol HCl (Labetalol 20 Mg/4 Ml Syringe) 10 mg IV NOW ONE Stop: 07/12/21 19:30 Last Admin: 07/12/21 19:44 Dose: 10 mg Documented by: NGOZI Labetalol HCl (Labetalol 20 Mg/4 Ml Syringe) 20 mg IV NOW ONE Stop: 07/12/21 20:53 Last Admin: 07/12/21 21:02 Dose: 20 mg Documented by: CASEY Labetalol HCl (Labetalol 20 Mg/4 Ml Syringe) 10 mg IV Q1HR PRN PRN Reason: Hypertensive Emergency Labetalol HCl (Labetalol 100 Mg Tablet) 200 mg PO BID PAO Last Admin: 07/13/21 09:13 Dose: 200 mg Documented by: WSCOTT Vital Signs Vital signs: Vital Signs - 8 hr 07/12/21 17:42 07/12/21 18:03 07/12/21 18:22 Temperature 98.5 F Pulse Rate 101 H 81 76 Respiratory Rate 20 16 12 Blood Pressure 168/101 H 157/87 H 154/92 H Pulse Oximetry 96 98 98 07/12/21 18:44 07/12/21 19:22 07/12/21 19:23 Temperature Pulse Rate 80 84 92 H Respiratory Rate Blood Pressure 157/87 H Pulse Oximetry 97 97 96 07/12/21 19:30 07/12/21 19:31 07/12/21 19:44 Temperature Pulse Rate 91 H 83 Respiratory Rate Blood Pressure 158/93 H 158/93 H Pulse Oximetry 96 97 MDM - OB/Uterine Contractions <Olga Costa PA-C - Last Filed: 07/12/21 21:11> Medical Records Attestation: I reviewed the patient's medical records. Lab Data Attestation: I reviewed the patient's lab results. Result diagrams: 07/13/21 05:10 07/13/21 05:10 Labs: Lab Results 07/12/21 07/12/21 07/12/21 Range/Units 17:55 17:55 17:55 WBC 10.5 (4.5-11.0) X10^3/uL RBC 3.89 L (4.0-5.2) X10^6/uL Hgb 10.6 L (12.0-16.0) g/dL Hct 31.7 L (36-46) % MCV 81.6 (80-100) fL MCH 27.4 (26-34) PG MCHC 33.5 (30-36) % RDW 13.8 (11.6-14.8) % Plt Count 388 (150-400) X10^3/uL Neut % (Auto) 70.3 (50-75) % Lymph % (Auto) 21.6 L (25-40) % Tyler % (Auto) 6.6 (3-14) % Eos % (Auto) 1.2 L (2-4) % Baso % (Auto) 0.3 (0-2) % Neut # (Auto) 7400 H (2617-6608) /uL Lymph # (Auto) 2300 (2016-6367) /uL Tyler # (Auto) 700 (0-900) /uL Eos # (Auto) 100 (0-450) /uL Baso # (Auto) 0 (0-100) /uL Total Counted Cancelled Seg Neutrophils % Cancelled Band Neutrophils % Cancelled Lymphocytes % (Manual) Cancelled Atypical Lymphs % Cancelled Monocytes % (Manual) Cancelled Eosinophils % (Manual) Cancelled Basophils % (Manual) Cancelled Metamyelocytes % Cancelled Myelocytes % Cancelled Promyelocytes % Cancelled Blast Cells % Cancelled Neutrophils # (Manual) Cancelled Nucleated RBCs Cancelled Differential Comment Cancelled Hypersegmented Neuts Cancelled Reactive Lymphocytes Cancelled Plasma Cells Cancelled Smudge Cells Cancelled Other Cell Type Cancelled Toxic Granulation Cancelled Toxic Vacuolation Cancelled Dohle Bodies Cancelled Felicita Rods Cancelled WBC Morphology Comment Cancelled Platelet Estimate Cancelled Clumped Platelets Cancelled Plt Morphology Comment Cancelled RBC Morphology Cancelled Dimorphic RBCs Cancelled Polychromasia Cancelled Hypochromasia Cancelled Poikilocytosis Cancelled Basophilic Stippling Cancelled Anisocytosis Cancelled Microcytosis Cancelled Macrocytosis Cancelled Spherocytes Cancelled Pappenheimer Bodies Cancelled Sickle Cells Cancelled Target Cells Cancelled Tear Drop Cells Cancelled Ovalocytes Cancelled Stomatocytes Cancelled Helmet Cells Cancelled [place] Bodies Cancelled [place] Rings Cancelled Ollie Cells Cancelled Acanthocytes (Spur) Cancelled Rouleaux Cancelled Schistocytes Cancelled PT 10.7 (10.1-12.7) SECONDS INR 1.0 (0.9-1.3) APTT 31 (26.4-36.2) SECONDS Sodium 138 (137-145) mmol/L Potassium 4.1 (3.4-5.1) mmol/L Chloride 105 (98-107) mmol/L Carbon Dioxide 23 (22-32) mmol/L BUN 14 (7-17) mg/dL Creatinine 0.61 (0.52-1.04) mg/dL Estimated GFR > 60 (>60) mL/min BUN/Creatinine Ratio 23.0 H (6-22) Glucose 112 H (70-100) mg/dL Lactate (0.7-2.1) mmol/L Uric Acid 6.6 H (2.5-6.2) mg/dL Calcium 9.7 (8.4-10.2) mg/dL Magnesium 1.7 (1.6-2.3) mg/dL Total Bilirubin 0.2 (0.2-1.3) mg/dL AST 26 (14-36) IU/L ALT 21 (<35) IU/L Alkaline Phosphatase 122 (38-126) U/L Lactate Dehydrogenase 514 (313-618) U/L Total Protein 7.9 (6.3-8.2) g/dL Albumin 4.0 (3.5-5.0) g/dL Globulin 3.9 (1.7-4.1) g/dL Albumin/Globulin Ratio 1.0 (1.0-2.8) Urine Color Urine Appearance Urine pH (4.5-8.0) Ur Specific [place] (1.000-1.035) Urine Protein (Negative) Urine Glucose (UA) (Negative) g/dL Urine Ketones (NEGATIVE) Urine Occult Blood (Negative) Urine Nitrate (Negative) Urine Bilirubin (NEGATIVE) Urine Urobilinogen (0.2) E.U./dL Ur Leukocyte Esterase (NEGATIVE) Urine RBC (0-5/HPF) Urine WBC (0-5/HPF) Ur Squamous Epith Cells (0-5/HPF) Urine Bacteria (None) Ur Culture Indicated? U Random Total Protein (0-12) mg/dL Urine Creatinine mg/dL Protein/Creatinin Ratio GRAM/24H 07/12/21 07/12/21 07/12/21 Range/Units 17:55 18:36 18:36 WBC (4.5-11.0) X10^3/uL RBC (4.0-5.2) X10^6/uL Hgb (12.0-16.0) g/dL Hct (36-46) % MCV (80-100) fL MCH (26-34) PG MCHC (30-36) % RDW (11.6-14.8) % Plt Count (150-400) X10^3/uL Neut % (Auto) (50-75) % Lymph % (Auto) (25-40) % Tyler % (Auto) (3-14) % Eos % (Auto) (2-4) % Baso % (Auto) (0-2) % Neut # (Auto) (9345-6407) /uL Lymph # (Auto) (0737-1257) /uL Tyler # (Auto) (0-900) /uL Eos # (Auto) (0-450) /uL Baso # (Auto) (0-100) /uL Total Counted Seg Neutrophils % Band Neutrophils % Lymphocytes % (Manual) Atypical Lymphs % Monocytes % (Manual) Eosinophils % (Manual) Basophils % (Manual) Metamyelocytes % Myelocytes % Promyelocytes % Blast Cells % Neutrophils # (Manual) Nucleated RBCs Differential Comment Hypersegmented Neuts Reactive Lymphocytes Plasma Cells Smudge Cells Other Cell Type Toxic Granulation Toxic Vacuolation Dohle Bodies Felicita Rods WBC Morphology Comment Platelet Estimate Clumped Platelets Plt Morphology Comment RBC Morphology Dimorphic RBCs Polychromasia Hypochromasia Poikilocytosis Basophilic Stippling Anisocytosis Microcytosis Macrocytosis Spherocytes Pappenheimer Bodies Sickle Cells Target Cells Tear Drop Cells Ovalocytes Stomatocytes Helmet Cells [place] Bodies [place] Rings Ollie Cells Acanthocytes (Spur) Rouleaux Schistocytes PT (10.1-12.7) SECONDS INR (0.9-1.3) APTT (26.4-36.2) SECONDS Sodium (137-145) mmol/L Potassium (3.4-5.1) mmol/L Chloride (98-107) mmol/L Carbon Dioxide (22-32) mmol/L BUN (7-17) mg/dL Creatinine (0.52-1.04) mg/dL Estimated GFR (>60) mL/min BUN/Creatinine Ratio (6-22) Glucose (70-100) mg/dL Lactate 1.4 (0.7-2.1) mmol/L Uric Acid (2.5-6.2) mg/dL Calcium (8.4-10.2) mg/dL Magnesium (1.6-2.3) mg/dL Total Bilirubin (0.2-1.3) mg/dL AST (14-36) IU/L ALT (<35) IU/L Alkaline Phosphatase (38-126) U/L Lactate Dehydrogenase (313-618) U/L Total Protein (6.3-8.2) g/dL Albumin (3.5-5.0) g/dL Globulin (1.7-4.1) g/dL Albumin/Globulin Ratio (1.0-2.8) Urine Color Yellow Urine Appearance Clear Urine pH 5.0 (4.5-8.0) Ur Specific [place] <=1.005 (1.000-1.035) Urine Protein Negative (Negative) Urine Glucose (UA) Negative (Negative) g/dL Urine Ketones Negative (NEGATIVE) Urine Occult Blood Negative (Negative) Urine Nitrate Negative (Negative) Urine Bilirubin Negative (NEGATIVE) Urine Urobilinogen 0.2 (0.2) E.U./dL Ur Leukocyte Esterase Trace H (NEGATIVE) Urine RBC None seen (0-5/HPF) Urine WBC 0-1/hpf (0-5/HPF) Ur Squamous Epith Cells None seen (0-5/HPF) Urine Bacteria None seen (None) Ur Culture Indicated? Specimen cultured U Random Total Protein 11 (0-12) mg/dL Urine Creatinine 23.2 mg/dL Protein/Creatinin Ratio 0.47 GRAM/24H Imaging Data US - PRESIDENT CELEBRITY ACQUISTION: Radiologist's Impression: PROCEDURE:? US PELVIC COMPLETE ? INDICATIONS:? 5 days post , llq pain, ? retained POC ? TECHNIQUE:? Real-time scanning was performed of the pelvic organs, with image documentation.? Additional endovaginal scanning was necessary due to incomplete visualization of the adnexal and endometrial structures by transabdominal scanning.? ? COMPARISON:? [facility], CT, CT ABDOMEN PELVIS W CON, 07/12/2021, 18:02. ? FINDINGS:? ?? Uterus:? Uterus is anteverted and enlarged in size at 17.4 x 7.6 x 9.0 cm. The myometrium is heterogeneous. ? The endometrium measures 16.4 mm combined thickness.? Endometrium is heterogeneous.? No areas of increased vascularity are identified.? Mild fluid is present. ? Ovaries:? The right ovary measures 2.4 x 1.3 x 0.9 cm. The left ovary measures 2.4 x 1 point by 1.4 cm. The ovaries have a normal sonographic appearance. Less than 12 follicles can be seen in each ovary.? No adnexal masses are seen. ? Other:? No pathologic free abdominal or pelvic fluid. ? ? IMPRESSION:? ? Enlarged uterus. ? Heterogeneous thickened endometrium without definitive foci of increased vascularity.? No definitive retained products of conception are identified. ? We strive to produce accurate, complete, and clear reports of imaging services. To assist us in improving patient care, this report was composed using standard report templates and voice recognition software. Therefore, it may contain abnormal punctuation, insertions and/or omissions. Occasional wrong-word or sound-alike substitutions may occur. Though we review the report and make efforts to correct it, we do recommend that the report be read carefully in proper context to recognize any text inaccuracies. ? ? Dictated by: Karena Mayo M.D. on 07/12/2021 at 19:54 ? ? Approved by: Karena Mayo M.D. on 07/12/2021 at 19:56 ? CT scan - abdomen/pelvis: Radiologist's Impression: PROCEDURE:? CT ABDOMEN PELVIS W CON ? INDICATIONS:? 35-year-old female with lower abdominal pain 5 days ? TECHNIQUE:? After the administration of intravenous contrast, axial sections acquired from the lung bases to the pubic symphysis.? Coronal and sagittal reformats were performed.? For radiation dose reduction, the following was used:? automated exposure control, adjustment of mA and/or kV according to patient size.? ? COMPARISON:? [facility], , US OB >= 14 WEEKS FETUS, 06/22/2021, 10:00. ? FINDINGS: ? Lower thorax: The lung bases are clear.? Heart size normal.? No hiatal hernia.? bilateral breast tissue noted. ? Liver:? Normal in size and attenuation. No contour deformity present.? Small subcentimeter right hepatic cyst. ? Biliary system:? Cholecystectomy.? No intra or extrahepatic bile duct dilation. ? Pancreas:? Unremarkable without mass or inflammation evident. ? Spleen:? Normal in size and density. ? Adrenals:? Normal morphology and density. ? Reproductive system:? uterus noted ? Urinary system:? Normal renal size and attenuation. No renal calculi, hydronephrosis, or solid mass present.? Urinary bladder unremarkable. ? Gastrointestinal system:? The bowel is unremarkable without evidence of bowel obstruction or inflammation. The stomach appears unremarkable. ? Appendix:? No findings to suggest acute appendicitis. ? Peritoneal spaces:? No mesenteric or retroperitoneal adenopathy.? No free air.? No free fluid.? ? Vasculature:? The IVC, aorta and iliac vasculature are unremarkable.? No CT evidence of ovarian vein thrombosis ? Abdominal wall:? Abdominal wall intact without evidence of ventral or inguinal hernias. ? Musculoskeletal:? Normal bone mineralization.? No acute fractures.? ? IMPRESSION: ? 1. No CT evidence of ovarian vein thrombosis.? Follow-up ultrasound may be helpful for further evaluation. ? 2. uterus is within expected limits. ? Approved by: Jesus Gorman M.D. on 07/12/2021 at 17:39? 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 Concern for preeclampsia versus ovarian vein thrombosis versus ovarian vein thrombophlebitis versus endometritis versus retained products of conception versus uterine rupture. Will obtain labs, magnesium, uric acid, LDH, lactate, lipase, CT abdomen pelvis with contrast, ultrasound vaginal. Will reassess. Uric acid elevated to 6.6. Trace leukocyte esterase in urine, however no wbc's. CT abdomen pelvis without any acute findings. U.S. vaginal without acute findings. Patient has had of Dilaudid with very little relief from the pain. Patient continues to be hypertensive in the systolic 150s to 160s. Patient was given 10 mg IV of labetalol without much improvement in blood pressures. Will give 20 mg of labetalol IV and reassess. Consulted Ob doctor Micheal who is senior pensions administrator tonight. Dr. Bruton [facility] pressure [facility], magnesium infusion, pain control, further workup. Discussed with patient, patient verbalized understanding, will admit, will admit. <Sandra Mariano, DO - Last Filed: 07/15/21 07:05> Lab Data Labs: Lab Results 07/12/21 07/12/21 07/12/21 Range/Units 17:55 17:55 17:55 WBC 10.5 (4.5-11.0) X10^3/uL RBC 3.89 L (4.0-5.2) X10^6/uL Hgb 10.6 L (12.0-16.0) g/dL Hct 31.7 L (36-46) % MCV 81.6 (80-100) fL MCH 27.4 (26-34) PG MCHC 33.5 (30-36) % RDW 13.8 (11.6-14.8) % Plt Count 388 (150-400) X10^3/uL Neut % (Auto) 70.3 (50-75) % Lymph % (Auto) 21.6 L (25-40) % Tyler % (Auto) 6.6 (3-14) % Eos % (Auto) 1.2 L (2-4) % Baso % (Auto) 0.3 (0-2) % Neut # (Auto) 7400 H (3767-9248) /uL Lymph # (Auto) 2300 (9016-6320) /uL Tyler # (Auto) 700 (0-900) /uL Eos # (Auto) 100 (0-450) /uL Baso # (Auto) 0 (0-100) /uL Total Counted Cancelled Seg Neutrophils % Cancelled Band Neutrophils % Cancelled Lymphocytes % (Manual) Cancelled Atypical Lymphs % Cancelled Monocytes % (Manual) Cancelled Eosinophils % (Manual) Cancelled Basophils % (Manual) Cancelled Metamyelocytes % Cancelled Myelocytes % Cancelled Promyelocytes % Cancelled Blast Cells % Cancelled Neutrophils # (Manual) Cancelled Nucleated RBCs Cancelled Differential Comment Cancelled Hypersegmented Neuts Cancelled Reactive Lymphocytes Cancelled Plasma Cells Cancelled Smudge Cells Cancelled Other Cell Type Cancelled Toxic Granulation Cancelled Toxic Vacuolation Cancelled Dohle Bodies Cancelled Felicita Rods Cancelled WBC Morphology Comment Cancelled Platelet Estimate Cancelled Clumped Platelets Cancelled Plt Morphology Comment Cancelled RBC Morphology Cancelled Dimorphic RBCs Cancelled Polychromasia Cancelled Hypochromasia Cancelled Poikilocytosis Cancelled Basophilic Stippling Cancelled Anisocytosis Cancelled Microcytosis Cancelled Macrocytosis Cancelled Spherocytes Cancelled Pappenheimer Bodies Cancelled Sickle Cells Cancelled Target Cells Cancelled Tear Drop Cells Cancelled Ovalocytes Cancelled Stomatocytes Cancelled Helmet Cells Cancelled [place] Bodies Cancelled [place] Rings Cancelled Ollie Cells Cancelled Acanthocytes (Spur) Cancelled Rouleaux Cancelled Schistocytes Cancelled PT 10.7 (10.1-12.7) SECONDS INR 1.0 (0.9-1.3) APTT 31 (26.4-36.2) SECONDS Sodium 138 (137-145) mmol/L Potassium 4.1 (3.4-5.1) mmol/L Chloride 105 (98-107) mmol/L Carbon Dioxide 23 (22-32) mmol/L BUN 14 (7-17) mg/dL Creatinine 0.61 (0.52-1.04) mg/dL Estimated GFR > 60 (>60) mL/min BUN/Creatinine Ratio 23.0 H (6-22) Glucose 112 H (70-100) mg/dL Lactate (0.7-2.1) mmol/L Uric Acid 6.6 H (2.5-6.2) mg/dL Calcium 9.7 (8.4-10.2) mg/dL Magnesium 1.7 (1.6-2.3) mg/dL Total Bilirubin 0.2 (0.2-1.3) mg/dL AST 26 (14-36) IU/L ALT 21 (<35) IU/L Alkaline Phosphatase 122 (38-126) U/L Lactate Dehydrogenase 514 (313-618) U/L Total Protein 7.9 (6.3-8.2) g/dL Albumin 4.0 (3.5-5.0) g/dL Globulin 3.9 (1.7-4.1) g/dL Albumin/Globulin Ratio 1.0 (1.0-2.8) Urine Color Urine Appearance Urine pH (4.5-8.0) Ur Specific [place] (1.000-1.035) Urine Protein (Negative) Urine Glucose (UA) (Negative) g/dL Urine Ketones (NEGATIVE) Urine Occult Blood (Negative) Urine Nitrate (Negative) Urine Bilirubin (NEGATIVE) Urine Urobilinogen (0.2) E.U./dL Ur Leukocyte Esterase (NEGATIVE) Urine RBC (0-5/HPF) Urine WBC (0-5/HPF) Ur Squamous Epith Cells (0-5/HPF) Urine Bacteria (None) Ur Culture Indicated? U Random Total Protein (0-12) mg/dL Urine Creatinine mg/dL Protein/Creatinin Ratio GRAM/24H 07/12/21 07/12/21 07/12/21 Range/Units 17:55 18:36 18:36 WBC (4.5-11.0) X10^3/uL RBC (4.0-5.2) X10^6/uL Hgb (12.0-16.0) g/dL Hct (36-46) % MCV (80-100) fL MCH (26-34) PG MCHC (30-36) % RDW (11.6-14.8) % Plt Count (150-400) X10^3/uL Neut % (Auto) (50-75) % Lymph % (Auto) (25-40) % Tyler % (Auto) (3-14) % Eos % (Auto) (2-4) % Baso % (Auto) (0-2) % Neut # (Auto) (6687-2556) /uL Lymph # (Auto) (8130-9690) /uL Tyler # (Auto) (0-900) /uL Eos # (Auto) (0-450) /uL Baso # (Auto) (0-100) /uL Total Counted Seg Neutrophils % Band Neutrophils % Lymphocytes % (Manual) Atypical Lymphs % Monocytes % (Manual) Eosinophils % (Manual) Basophils % (Manual) Metamyelocytes % Myelocytes % Promyelocytes % Blast Cells % Neutrophils # (Manual) Nucleated RBCs Differential Comment Hypersegmented Neuts Reactive Lymphocytes Plasma Cells Smudge Cells Other Cell Type Toxic Granulation Toxic Vacuolation Dohle Bodies Felicita Rods WBC Morphology Comment Platelet Estimate Clumped Platelets Plt Morphology Comment RBC Morphology Dimorphic RBCs Polychromasia Hypochromasia Poikilocytosis Basophilic Stippling Anisocytosis Microcytosis Macrocytosis Spherocytes Pappenheimer Bodies Sickle Cells Target Cells Tear Drop Cells Ovalocytes Stomatocytes Helmet Cells [place] Bodies [place] Rings [place] Cells Acanthocytes (Spur) Rouleaux Schistocytes PT (10.1-12.7) SECONDS INR (0.9-1.3) APTT (26.4-36.2) SECONDS Sodium (137-145) mmol/L Potassium (3.4-5.1) mmol/L Chloride (98-107) mmol/L Carbon Dioxide (22-32) mmol/L BUN (7-17) mg/dL Creatinine (0.52-1.04) mg/dL Estimated GFR (>60) mL/min BUN/Creatinine Ratio (6-22) Glucose (70-100) mg/dL Lactate 1.4 (0.7-2.1) mmol/L Uric Acid (2.5-6.2) mg/dL Calcium (8.4-10.2) mg/dL Magnesium (1.6-2.3) mg/dL Total Bilirubin (0.2-1.3) mg/dL AST (14-36) IU/L ALT (<35) IU/L Alkaline Phosphatase (38-126) U/L Lactate Dehydrogenase (313-618) U/L Total Protein (6.3-8.2) g/dL Albumin (3.5-5.0) g/dL Globulin (1.7-4.1) g/dL Albumin/Globulin Ratio (1.0-2.8) Urine Color Yellow Urine Appearance Clear Urine pH 5.0 (4.5-8.0) Ur Specific [place] <=1.005 (1.000-1.035) Urine Protein Negative (Negative) Urine Glucose (UA) Negative (Negative) g/dL Urine Ketones Negative (NEGATIVE) Urine Occult Blood Negative (Negative) Urine Nitrate Negative (Negative) Urine Bilirubin Negative (NEGATIVE) Urine Urobilinogen 0.2 (0.2) E.U./dL Ur Leukocyte Esterase Trace H (NEGATIVE) Urine RBC None seen (0-5/HPF) Urine WBC 0-1/hpf (0-5/HPF) Ur Squamous Epith Cells None seen (0-5/HPF) Urine Bacteria None seen (None) Ur Culture Indicated? Specimen cultured U Random Total Protein 11 (0-12) mg/dL Urine Creatinine 23.2 mg/dL Protein/Creatinin Ratio 0.47 GRAM/24H Discharge Plan Departure Patient Disposition: Admitted As Inpatient Clinical Impression: Abdominal pain Admit Date/Time: 07/12/21 21:07 Admit Provider: Sravan Burton <Sandra Mariano DO - Last Filed: 07/15/21 07:05> Cosign ED Attending Cosignature Attestation: I was immediately available in the department for consultation. Documentation has been reviewed. I agree with assessment and plan.
[2021-07-12] MEDS: LABETALOL 20 MG/4 ML SYRINGE 10 MG IV (19:44)
[2021-07-12] MEDS: LABETALOL 20 MG/4 ML SYRINGE IV (21:02)
[2021-07-12 21:50] LABS: Creatinine Urine Random 23.2 mg/dL; Protein (Total) Urine Random 11 mg/dL (0-12); Protein Creatinine Ratio Urine 0.47 GRAM/24H
[2021-07-12] MEDS: LACTATED RINGERS 1,000 ML 100 ML IV (22:10)
[2021-07-12] MEDS: MAGNESIUM SULFATE 4 GM/100 ML PIGGYBACK IV (22:11)
[2021-07-12] MEDS: MAGNESIUM SULFATE 20 GM/500 ML IV.SOLN IV (22:46)
--- NOTE | 2021-07-12 23:24 | PC.NURSE ---
pt settled in bed last BP 136/85-pain 03/07-pt states, My Pain is almost completely gone.. Pain medication avail on apr-pt declines pain meds at this time. All vitals WNL Clonus absent-reflexes normal-This RN checked in with Dr. Burton-Magnesium bolus given-maintenance mag running-POC to run magnesium through the night and reassess in the AM-pt pumping for baby boy copious breast milk-best friend support person at the bedside to help with baby and offer comfort
[2021-07-13] VITALS (13 sets, daily range): BP systolic 111–148; BP diastolic 64–87; PULSE 82–95; RESP 16–19; TEMP 35.3–36.5; O2SAT 97–98
[2021-07-13] MEDS: IBUPROFEN 400 MG TABLET 600 MG PO (03:24)
--- NOTE | 2021-07-13 03:39 | PC.NURSE ---
@[id number] pt requests medication for slight BAPTISTE-400 ibuprofen given-pt dozing-states, my belly hurts only when I press on it otherwise I have no pain there anymore. pt is pushing on LLQ above hip bone
[2021-07-13 05:42] LABS: Hematocrit 31.1 % (36-46); Hemoglobin 10.4 g/dL (12.0-16.0); Mean Corpuscular HGB Conc 33.3 % (30-36); Mean Corpuscular Hemoglobin 27.1 PG (26-34); Mean Corpuscular Volume 81.5 fL (80-100); Platelet Count 390 X10^3/uL (150-400); Red Blood Cell Count 3.82 X10^6/uL (4.0-5.2); Red Cell Distribution Width 13.7 % (11.6-14.8); White Blood Cell Count 10.3 X10^3/uL (4.5-11.0)
[2021-07-13 05:44] LABS: Add Manual Diff / Slide Review YES
[2021-07-13 06:22] LABS: Alanine Aminotransferase 18 IU/L (<35); Albumin 3.7 g/dL (3.5-5.0); Albumin Globulin Ratio 1.1 (1.0-2.8); Alkaline Phosphatase 107 U/L (38-126); Aspartate Aminotransferase 24 IU/L (14-36); Bilirubin Total 0.2 mg/dL (0.2-1.3); Bilirubin Unconjugated 0.2 mg/dL (0.0-1.1); Blood Urea Nitrogen 7 mg/dL (7-17); Calcium 7.6 mg/dL (8.4-10.2); Carbon Dioxide 22 mmol/L (22-32); Chloride 104 mmol/L (98-107); Estimated Glomerular Filt Rate > 60 mL/min (>60); Globulin 3.5 g/dL (1.7-4.1); Glucose 109 mg/dL (70-100); HEMOLYSIS < 15 (0-50); Potassium 4.1 mmol/L (3.4-5.1); Sodium 136 mmol/L (137-145); Total Protein 7.2 g/dL (6.3-8.2)
[2021-07-13 06:33] LABS: Magnesium 5.3 mg/dL (1.6-2.3)
[2021-07-13 07:01] LABS: Neutrophils Absolute Manual 6901 /uL (3000-5900); Total Cells Counted 100
[2021-07-13 07:02] LABS: Toxic Granulation Present
--- NOTE | 2021-07-13 07:22 | P.HPOB_ITS ---
History of Present Illness History of Present Illness Narrative: Danica Gonzalez is a 35 year old s/p 07/07/2021 admitted last evening with labile BP requiring IV labetalol in the ED which was associated with severe LLQ pain requiring IV Dilaudid for control. Patient presented to the [facility] on the evening of 07/06/2021 at 37+5 weeks gestational age with headache and diarrhea.? She was found to have labile blood pressures, normal preeclampsia labs, and persistent diarrhea. She was induced on 07/07/2021 and had an uneventful vaginal delivery. She did not receive magnesium sulfate at that time, her blood pressures were only mildly elevated . She and her were discharged on 07/08/2021 and her course was uneventful until the afternoon of 07/12/2021 when at approximately 1:30 p.m. she developed the sudden onset of deep left lower quadrant sharp pain which became progressively worse at resulted in her being seen in the emergency department of [facility] last night. Blood pressure was elevated into the severe range and required 2 doses 10 mg labetalol IV for control and despite 4 doses of IV Dilaudid, the patient's left lower quadrant pain was poorly controlled. The decision was made to admit the patient to the [facility] for blood pressure control and pain management. Shortly after arriving on the [facility], the patient at her bladder and almost immediately thereafter experienced a sudden 2nd full void. It was after that event that her pain subsided dramatically and has since resolved. Following IV doses of labetalol, her blood pressure initially remained in the non severe range and overnight remained in the 140s over 80s range. This morning however her blood pressure is again up in the severe range with a blood pressure of 161/80. She is asymptomatic however and all of her PIH/preeclampsia labs are normal/negative. Magnesium sulfate was initiated last evening because of the elevations of her blood pressure into the severe range and continues now with a morning magnesium level of 5.4. PIH/preeclampsia labs this a.m. oral so all normal. Medical complications OB: immunologic (Antiphospholipid antibody syndrome, o [facility] Medical History (Updated 07/12/21 @ 21:13 by Olga Costa PA-C) Acne Antiphospholipid antibody positive Anxiety (~2018) Gallstone of bile duct with obstruction (2017) History of multiple miscarriages (2012) History of recurrent ear infection History of urinary retention SAB (spontaneous ) (~2013) SAB (spontaneous ) (~2014) (spontaneous vaginal delivery) (~07/05/12) (spontaneous vaginal delivery) (~08/20/18) (spontaneous vaginal delivery) (~04/21/16) Surgical History (Updated 12/07/20 @ 10:53 by Isadora Resendez RN) Anesthesia S/P cholecystectomy (07/15/17) Family History (Updated 12/07/20 @ 10:52 by Isadora Resendez, ELOY) Mother Asthma Diabetes mellitus Hypertension Hyperlipidemia Influenza Father Hypertension Brother Autism Grandfather Old age Grandmother Fall Grandfather Cancer Family estrangement Grandmother Diabetes mellitus Family estrangement Family/Other Hypertension Social History marital status: number of children: 3 household members: spouse and children lives independently: Yes caregiver/support person: No pets and animals: Yes (X 2 dogs) occupational status: unemployed current occupational exposures/hazards: No special william needs: No Smoking Status: Former smoker Tobacco: How many years used: 2 second hand exposure: No alcohol intake: former (Pre- : Social) substance use type: does not use Meds Home Medications and Allergies Home Medications Medication Instructions Recorded Confirmed Type prenat.vits,aaliyah,mdv-ujbg-qkyvf 1 tab PO DAILY 12/07/20 07/08/21 History oxycodone 5 mg tablet 5 mg PO Q4H PRN #14 tab 07/08/21 Rx labetalol 100 mg tablet 100 mg PO BID #60 tab 07/12/21 Rx labetalol 100 mg tablet 100 mg PO BID #60 tab 07/12/21 07/12/21 Rx Allergies Allergy/AdvReac Type Severity Reaction Status Date / Time codeine [CODEINE] AdvReac Severe Anaphylaxis Verified 07/12/21 17:47 Review of Systems Review of Systems Narrative: Problem-specific ROS positives included in HPI Exam Vital Signs (past 8 hours): - 07/12/21 23:36 07/13/21 00:24 07/13/21 01:26 Temperature 97.0 F L Pulse Rate 85 95 H 82 Respiratory Rate 18 18 19 Blood Pressure 133/73 122/73 132/74 Pulse Oximetry 97 07/13/21 02:24 07/13/21 03:24 Temperature Pulse Rate 82 83 Respiratory Rate 18 18 Blood Pressure 118/70 137/80 Pulse Oximetry Oxygen Delivery Method Room Air Const General: cooperative and comfortable Nutritional Appearance: average body habitus Orientation: alert and oriented x3 HENMT Head: normocephalic and atraumatic Ears: hearing grossly normal bilaterally Face and sinus: face symmetric Eyes General: appearance normal, both eyes and all related structures Conjunctivae: conjunctivae normal Sclera: sclerae normal EOM: EOM intact bilaterally Neck Neck: normal visual inspection Resp Effort & Inspection: normal respiratory effort and able to speak in complete sentences Auscultation: clear to auscultation bilaterally Cardio Rate: regular rate Rhythm: regular rhythm Heart Sounds: S1 normal, S2 normal and no murmurs GI Inspection: normal to inspection Palpation: soft, no hepatosplenomegaly and No tender General: other (Deferred) Extrem General: no calf tenderness Psych Appearance: grossly normal Mental Status: mental status grossly normal Speech and Movement: speech and movement normal Mood: congruent mood Affect: normal affect Attitude: cooperative Thought Process: normal Thought Content: normal Judgment: judgment good Objective Labs Result Diagrams: 07/13/21 05:10 07/13/21 05:10 Labs: Laboratory Results - last 24 hr 07/12/21 07/12/21 07/12/21 17:55 17:55 17:55 WBC 10.5 RBC 3.89 L Hgb 10.6 L Hct 31.7 L MCV 81.6 MCH 27.4 MCHC 33.5 RDW 13.8 Plt Count 388 Neut % (Auto) 70.3 Lymph % (Auto) 21.6 L [place] % (Auto) 6.6 Eos % (Auto) 1.2 L Baso % (Auto) 0.3 Neut # (Auto) 7400 H Lymph # (Auto) 2300 [place] # (Auto) 700 Eos # (Auto) 100 Baso # (Auto) 0 Total Counted Cancelled Seg Neutrophils % Cancelled Band Neutrophils % Cancelled Lymphocytes % (Manual) Cancelled Atypical Lymphs % Cancelled Monocytes % (Manual) Cancelled Eosinophils % (Manual) Cancelled Basophils % (Manual) Cancelled Metamyelocytes % Cancelled Myelocytes % Cancelled Promyelocytes % Cancelled Blast Cells % Cancelled Neutrophils # (Manual) Cancelled Nucleated RBCs Cancelled Differential Comment Cancelled Hypersegmented Neuts Cancelled Reactive Lymphocytes Cancelled Plasma Cells Cancelled Smudge Cells Cancelled Other Cell Type Cancelled Toxic Granulation Cancelled Toxic Vacuolation Cancelled Dohle Bodies Cancelled Felicita Rods Cancelled WBC Morphology Comment Cancelled Platelet Estimate Cancelled Clumped Platelets Cancelled Plt Morphology Comment Cancelled RBC Morphology Cancelled Dimorphic RBCs Cancelled Polychromasia Cancelled Hypochromasia Cancelled Poikilocytosis Cancelled Basophilic Stippling Cancelled Anisocytosis Cancelled Microcytosis Cancelled Macrocytosis Cancelled Spherocytes Cancelled Pappenheimer Bodies Cancelled Sickle Cells Cancelled Target Cells Cancelled Tear Drop Cells Cancelled Ovalocytes Cancelled Stomatocytes Cancelled Helmet Cells Cancelled [place] Bodies Cancelled [place] Rings Cancelled [place]llie Cells Cancelled Acanthocytes (Spur) Cancelled Rouleaux Cancelled Schistocytes Cancelled PT 10.7 INR 1.0 APTT 31 Sodium 138 Potassium 4.1 Chloride 105 Carbon Dioxide 23 BUN 14 Creatinine 0.61 Estimated GFR > 60 BUN/Creatinine Ratio 23.0 H Glucose 112 H Lactate Uric Acid 6.6 H Calcium 9.7 Magnesium 1.7 Total Bilirubin 0.2 Conjugated Bilirubin Unconjugated Bilirubin AST 26 ALT 21 Alkaline Phosphatase 122 Lactate Dehydrogenase 514 Total Protein 7.9 Albumin 4.0 Globulin 3.9 Albumin/Globulin Ratio 1.0 Urine Color Urine Appearance Urine pH Ur Specific [place] Urine Protein Urine Glucose (UA) Urine Ketones Urine Occult Blood Urine Nitrate Urine Bilirubin Urine Urobilinogen Ur Leukocyte Esterase Urine RBC Urine WBC Ur Squamous Epith Cells Urine Bacteria Ur Culture Indicated? U Random Total Protein Urine Creatinine Protein/Creatinin Ratio 07/12/21 07/12/21 07/12/21 17:55 18:36 18:36 WBC RBC Hgb Hct MCV MCH MCHC RDW Plt Count Neut % (Auto) Lymph % (Auto) [place] % (Auto) Eos % (Auto) Baso % (Auto) Neut # (Auto) Lymph # (Auto) [place] # (Auto) Eos # (Auto) Baso # (Auto) Total Counted Seg Neutrophils % Band Neutrophils % Lymphocytes % (Manual) Atypical Lymphs % Monocytes % (Manual) Eosinophils % (Manual) Basophils % (Manual) Metamyelocytes % Myelocytes % Promyelocytes % Blast Cells % Neutrophils # (Manual) Nucleated RBCs Differential Comment Hypersegmented Neuts Reactive Lymphocytes Plasma Cells Smudge Cells Other Cell Type Toxic Granulation Toxic Vacuolation Dohle Bodies Felicita Rods WBC Morphology Comment Platelet Estimate Clumped Platelets Plt Morphology Comment RBC Morphology Dimorphic RBCs Polychromasia Hypochromasia Poikilocytosis Basophilic Stippling Anisocytosis Microcytosis Macrocytosis Spherocytes Pappenheimer Bodies Sickle Cells Target Cells Tear Drop Cells Ovalocytes Stomatocytes Helmet Cells [place] Bodies [place] Rings Ollie Cells Acanthocytes (Spur) Rouleaux Schistocytes PT INR APTT Sodium Potassium Chloride Carbon Dioxide BUN Creatinine Estimated GFR BUN/Creatinine Ratio Glucose Lactate 1.4 Uric Acid Calcium Magnesium Total Bilirubin Conjugated Bilirubin Unconjugated Bilirubin AST ALT Alkaline Phosphatase Lactate Dehydrogenase Total Protein Albumin Globulin Albumin/Globulin Ratio Urine Color Yellow Urine Appearance Clear Urine pH 5.0 Ur Specific [place] <=1.005 Urine Protein Negative Urine Glucose (UA) Negative Urine Ketones Negative Urine Occult Blood Negative Urine Nitrate Negative Urine Bilirubin Negative Urine Urobilinogen 0.2 Ur Leukocyte Esterase Trace H Urine RBC None seen Urine WBC 0-1/hpf Ur Squamous Epith Cells None seen Urine Bacteria None seen Ur Culture Indicated? Specimen cultured U Random Total Protein 11 Urine Creatinine 23.2 Protein/Creatinin Ratio 0.47 07/13/21 07/13/21 05:10 05:10 WBC 10.3 RBC 3.82 L Hgb 10.4 L Hct 31.1 L MCV 81.5 MCH 27.1 MCHC 33.3 RDW 13.7 Plt Count 390 Neut % (Auto) Not Reportable Lymph % (Auto) Not Reportable [place] % (Auto) Not Reportable Eos % (Auto) Not Reportable Baso % (Auto) Not Reportable Neut # (Auto) Lymph # (Auto) Not Reportable [place] # (Auto) Not Reportable Eos # (Auto) Baso # (Auto) Not Reportable Total Counted 100 Seg Neutrophils % 62.0 Band Neutrophils % 5.0 Lymphocytes % (Manual) 26.0 Atypical Lymphs % Monocytes % (Manual) 4.0 Eosinophils % (Manual) 2.0 Basophils % (Manual) Metamyelocytes % Myelocytes % 1.0 H Promyelocytes % Blast Cells % Neutrophils # (Manual) 6901 H Nucleated RBCs Differential Comment Hypersegmented Neuts Reactive Lymphocytes Plasma Cells Smudge Cells Other Cell Type Toxic Granulation Present H Toxic Vacuolation Dohle Bodies Felicita Rods WBC Morphology Comment Platelet Estimate Clumped Platelets Plt Morphology Comment RBC Morphology See below Dimorphic RBCs Polychromasia Hypochromasia Poikilocytosis Basophilic Stippling Anisocytosis Microcytosis Macrocytosis Spherocytes Pappenheimer Bodies Sickle Cells Target Cells Tear Drop Cells Ovalocytes Stomatocytes Helmet Cells [place] Bodies [place] Rings Ollie Cells Acanthocytes (Spur) Rouleaux Schistocytes PT INR APTT Sodium 136 L Potassium 4.1 Chloride 104 Carbon Dioxide 22 BUN 7 Creatinine 0.54 Estimated GFR > 60 BUN/Creatinine Ratio 13.0 Glucose 109 H Lactate Uric Acid 7.0 H Calcium 7.6 L Magnesium 5.3 H* Total Bilirubin 0.2 Conjugated Bilirubin 0.0 Unconjugated Bilirubin 0.2 AST 24 ALT 18 Alkaline Phosphatase 107 Lactate Dehydrogenase Total Protein 7.2 Albumin 3.7 Globulin 3.5 Albumin/Globulin Ratio 1.1 Urine Color Urine Appearance Urine pH Ur Specific [place] Urine Protein Urine Glucose (UA) Urine Ketones Urine Occult Blood Urine Nitrate Urine Bilirubin Urine Urobilinogen Ur Leukocyte Esterase Urine RBC Urine WBC Ur Squamous Epith Cells Urine Bacteria Ur Culture Indicated? U Random Total Protein Urine Creatinine Protein/Creatinin Ratio Assessment & Plan Assessment & Plan narrative: ASSESSMENT 1. hypertension/preeclampsia 2. A lower quadrant pain, acute, resolved 3. Status post uncomplicated 07/07/2021 PLAN 1. Admit for pain and blood pressure control. 2. IV magnesium sulfate 4g/2g; duration 12-24 hrs. 3. Initiate labetalol 200 mg p.o. b.i.d. 4. See orders. Time Spent With Patient Time with patient: less than 30 minutes Critical Care time: I spent a total of [] minutes of critical care time on this patient's care today; this time is exclusive of procedural time.
--- NOTE | 2021-07-13 07:45 | PC.NURSE ---
Dr. Burton to the room @[phone] to assess and check in with pt-see PCP report-pt's magnesium at therapeutic levels-vitals WNL-pt reporting LLQ pain in resolved at this time Report given to Kimmy LYONS at the bedside
[2021-07-13 08:35] LABS: COVID19 -Nasal RAPID Negative (Negative)
[2021-07-13] MEDS: LACTATED RINGERS 1,000 ML 100 ML IV (08:48)
[2021-07-13] MEDS: MAGNESIUM SULFATE 20 GM/500 ML IV.SOLN IV (08:49)
[2021-07-13] MEDS: IBUPROFEN 600 MG TABLET PO (08:54)
[2021-07-13] MEDS: LABETALOL 100 MG TABLET 200 MG PO (09:13)
[2021-07-13] MEDS: ACETAMINOPHEN 325 MG TABLET 650 MG PO (09:14)
--- NOTE | 2021-07-13 09:20 | PC.NURSE ---
RN spoke with Dr. Goins regarding pt's blood pressure and scheduled labetalol, as well as pt's c/o ongoing BAPTISTE requesting tylenol, and UA results of gram negative bacilli. POC discussed to include administration of labetalol now as well as starting PO tylenol and keflex for pt's UTI. RN reviewed POC with patient and s/o. Verbalized understanding and denies any further questions or concerns at this time.
[2021-07-13] MEDS: cephALEXin 250 MG CAPSULE 500 MG PO (10:08)
--- NOTE | 2021-07-13 11:47 | PC.NURSE ---
RN received VO from Dr. Goins to discontinue IV MgSO4 therapy. IV saline locked. Pt verbalizes understanding in POC.
[2021-07-13 13:42] LABS: Magnesium 4.2 mg/dL (1.6-2.3)
--- NOTE | 2021-07-13 14:26 | PC.NURSE ---
Dr. Goins reviews pt's blood pressures post McSO4 therapy completion. POC discussed to include pt being discharged home on PO Labetalol 200 mg BID as well as rx for Keflex for pt's UTI. Pt to return for follow up next week with and encouraged to bring at home cuff for comparison. MD reviewed blood pressure values for patient to call to report. RN discussed encouraging pt to call/come in for evaluation for elevated BP, BAPTISTE not relieved with rest/tylenol/ibuprofen/hydration, visual changes, RUQ pain, new swelling/sudden weight gain, nausea/vomiting. Pt verbalizes understanding of all of these things and denies any further questions or concerns at this time. RN removed pt's IV and pt is preparing for discharge home.
== END 2021-07-13 14:40 | disposition home or self-care (01) | DRG 251 ==
LOC: ED 17:46 → AC 21:08 → LABOR 21:31
PROVIDERS: Admitting Provider Obstetrics & Gynecology; Emergency Provider Student in an Organized Health Care Education/Training Program; PCP Nurse Practitioner; Referring Provider Obstetrics & Gynecology; Visit Provider Obstetrics & Gynecology
DX: R10.32 Left lower quadrant pain (principal); O14.95 Unspecified pre-eclampsia, complicating the puerperium; O99.13 Other diseases of the blood and blood-forming organs and certain disorders involving the immune mechanism complicating the puerperium; D68.61 Antiphospholipid syndrome; Z20.822 Contact with and (suspected) exposure to COVID-19
CPT/HCPCS: 36415; 74177; 76830; 76856; 80053; 80076; 81001; 82570; 83605; 83615; 83735; 84156; 84550; 85007; 85025; 85610; 85730; 87077; 87086; 87186; 87635; 99233; 99284; C9803; J1170; J3475; Q9967

== ENCOUNTER 2021-10-14 21:59 | Emergency (ER) | payer OTHER, MEDICAID, SELFPAY ==
[2021-07-19 13:59] VITALS: BMI 28.1
[2021-10-14 22:04] VITALS: BP 158/91; PULSE 103; RESP 20; TEMP 36.9; O2SAT 99; BMI 30.1
[2021-10-14 22:29] LABS: Add Manual Diff / Slide Review NO; Basophils Absolute Auto 0 /uL (0-100); Basophils Percent Auto 0.4 % (0-2); Eosinophils Absolute Auto 100 /uL (0-450); Eosinophils Percent Auto 1.3 % (2-4); Hematocrit 36.8 % (36-46); Hemoglobin 12.3 g/dL (12.0-16.0); Lymphocytes Absolute Auto 3300 /uL (1100-4500); Lymphocytes Percent Auto 34.7 % (25-40); Mean Corpuscular HGB Conc 33.5 % (30-36); Mean Corpuscular Hemoglobin 27.4 PG (26-34); Mean Corpuscular Volume 81.8 fL (80-100); Monocytes Absolute Auto 500 /uL (0-900); Monocytes Percent Auto 5.2 % (3-14); Neutrophils Absolute Auto 5500 /uL (1500-7000); Neutrophils Percent Auto 58.4 % (50-75); Platelet Count 352 X10^3/uL (150-400); Red Blood Cell Count 4.49 X10^6/uL (4.0-5.2); Red Cell Distribution Width 16.2 % (11.6-14.8); White Blood Cell Count 9.4 X10^3/uL (4.5-11.0)
[2021-10-14 22:40] LABS: Alanine Aminotransferase 24 IU/L (<35); Albumin 4.6 g/dL (3.5-5.0); Albumin Globulin Ratio 1.3 (1.0-2.8); Alkaline Phosphatase 111 U/L (38-126); Aspartate Aminotransferase 26 IU/L (14-36); BUN Creatinine Ratio 18.8 (6-22); Bilirubin Total 0.1 mg/dL (0.2-1.3); Blood Urea Nitrogen 12 mg/dL (7-17); Calcium 9.9 mg/dL (8.4-10.2); Carbon Dioxide 24 mmol/L (22-32); Chloride 105 mmol/L (98-107); Estimated Glomerular Filt Rate > 60 mL/min (>60); Globulin 3.6 g/dL (1.7-4.1); Glucose 103 mg/dL (70-100); HEMOLYSIS 20 (0-50); Lipase 53 U/L (23-300); Potassium 4.5 mmol/L (3.4-5.1); Sodium 140 mmol/L (137-145); Total Protein 8.2 g/dL (6.3-8.2)
--- NOTE | 2021-10-14 23:43 | ED_ITS ---
HPI - Abdominal Pain General Chief Complaint: Abdominal Pain Stated Complaint: Blood sugar issue symptoms, V/D, Lightheaded Time Seen by Provider: 10/14/21 23:21 History of Present Illness HPI narrative: This 36-year-old woman has symptoms of vomiting and diarrhea for about 4 hours. She has had a recent child. She does not have fever associated with this. No bloody emesis or bloody stools. She did have hypertension following the delivery of her baby but she is no longer taking antihypertensives. There is no else sick at home. Related Data Home Medications Medication Instructions Recorded Confirmed prenat.vits,aaliyah,[id number] 1 tab PO DAILY 12/07/20 08/19/21 Previous Rx's Medication Instructions Recorded oxycodone 5 mg tablet 5 mg PO Q4H PRN pain #14 tabs 07/08/21 cefuroxime axetil 500 mg tablet 500 mg PO BID #14 tabs 07/13/21 labetalol 200 mg tablet 200 mg PO BID #60 tabs 07/13/21 ondansetron 4 mg disintegrating 4 mg PO Q6H #10 tabs 10/14/21 tablet Allergies Allergy/AdvReac Type Severity Reaction Status Date / Time codeine [CODEINE] AdvReac Severe Anaphylaxis Verified 10/14/21 22:12 Review of Systems Review of Systems Narrative: Complete review systems is negative other than as noted above. Patient History Medical History (Updated 10/14/21 @ 23:46 by Carmine Lerma MD) Acne Antiphospholipid antibody positive Anxiety (~2018) History of multiple miscarriages (2012) History of recurrent ear infection History of urinary retention SAB (spontaneous ) (~2013) SAB (spontaneous ) (~2014) (spontaneous vaginal delivery) (~07/05/12) (spontaneous vaginal delivery) (~08/20/18) (spontaneous vaginal delivery) (~04/21/16) Surgical History (Updated 12/07/20 @ 10:53 by Isadora Resendez RN) Anesthesia S/P cholecystectomy (07/15/17) Family History (Updated 12/07/20 @ 10:52 by Isadora Resendez RN) Mother Asthma Diabetes mellitus Hypertension Hyperlipidemia Influenza Father Hypertension Brother Autism Grandfather Old age Grandmother Fall Grandfather Cancer Family estrangement Grandmother Diabetes mellitus Family estrangement Family/Other Hypertension Social History marital status: number of children: 3 household members: spouse and children lives independently: Yes caregiver/support person: No pets and animals: Yes (X 2 dogs) occupational status: unemployed current occupational exposures/hazards: No special william needs: No Smoking Status: Former smoker Tobacco: How many years used: 2 second hand exposure: No alcohol intake: former (Pre- : Social) substance use type: does not use Smoking Status: Former smoker alcohol intake frequency: 0-2 drinks per day Substance Use Type: does not use Exam Narrative Exam Narrative: GENERAL: Alert, cooperative and in no distress. Heart rate when I am examining her is 84 beats per minute HEAD: Atraumatic. Normocephalic. EYES: Sclera are clear without icterus. Extraocular movements are full. ENT: No rhinorrhea. Oropharynx is moist. Mouth exam is benign. NECK: Supple. Full range of motion. CARDIOVASCULAR: Normal rate and rhythm without murmur gallop or rub. RESPIRATORY: Clear to auscultation. Breath sounds equal bilaterally. No wheezes, rales, or rhonchi. GASTROINTESTINAL: Abdomen soft, non-tender, nondistended. EXTREMITIES: No edema, full range of motion. No obvious trauma. BACK: Normal inspection, no CVA tenderness. NEURO: Nonfocal examination, normal speech, normal gait. SKIN: No rash or erythema of visible areas PSYCH: Normally oriented. Normal range of affect. Appropriate behavior Initial Vital Signs Initial Vital Signs: Vital Signs Temperature 98.5 F 10/14/21 22:04 Pulse Rate 103 H 10/14/21 22:04 Respiratory Rate 20 10/14/21 22:04 Blood Pressure 158/91 H 10/14/21 22:04 Pulse Oximetry 99 10/14/21 22:04 Oxygen Delivery Method 10/14/21 22:04 Course Orders Ordered: ED Orders 10/14/21 22:10 EKG-12 Lead Stat 10/14/21 22:20 Complete Blood Count AUTO DIFF Stat Comprehensive Metabolic Panel Stat Lipase Stat Ondansetron HCl (Ondansetron 4 Mg Odt Prepack) 1 bottle MISC SEEINSTR ONE Stop: 10/14/21 23:48 Vital Signs Vital signs: Vital Signs - 8 hr 10/14/21 22:04 Temperature 98.5 F Pulse Rate 103 H Respiratory Rate 20 Blood Pressure 158/91 H Pulse Oximetry 99 Oxygen Delivery Method Room Air MDM - Abdominal Pain Medical Records Medical records narrative: She looks entirely well within normal lab in urine. Having symptomatic therapy is all that is required at this point. Watchful waiting will be the next step. Lab Data Result diagrams: 10/14/21 22:20 10/14/21 22:20 Labs: Lab Results 10/14/21 10/14/21 Range/Units 22:20 22:20 WBC 9.4 (4.5-11.0) X10^3/uL RBC 4.49 (4.0-5.2) X10^6/uL Hgb 12.3 (12.0-16.0) g/dL Hct 36.8 (36-46) % MCV 81.8 (80-100) fL MCH 27.4 (26-34) PG MCHC 33.5 (30-36) % RDW 16.2 H (11.6-14.8) % Plt Count 352 (150-400) X10^3/uL Neut % (Auto) 58.4 (50-75) % Lymph % (Auto) 34.7 (25-40) % [place] % (Auto) 5.2 (3-14) % Eos % (Auto) 1.3 L (2-4) % Baso % (Auto) 0.4 (0-2) % Neut # (Auto) 5500 (0022-6369) /uL Lymph # (Auto) 3300 (5612-6984) /uL [place] # (Auto) 500 (0-900) /uL Eos # (Auto) 100 (0-450) /uL Baso # (Auto) 0 (0-100) /uL Sodium 140 (137-145) mmol/L Potassium 4.5 (3.4-5.1) mmol/L Chloride 105 (98-107) mmol/L Carbon Dioxide 24 (22-32) mmol/L BUN 12 (7-17) mg/dL Creatinine 0.64 (0.52-1.04) mg/dL Estimated GFR > 60 (>60) mL/min BUN/Creatinine Ratio 18.8 (6-22) Glucose 103 H (70-100) mg/dL Calcium 9.9 (8.4-10.2) mg/dL Total Bilirubin 0.1 L (0.2-1.3) mg/dL AST 26 (14-36) IU/L ALT 24 (<35) IU/L Alkaline Phosphatase 111 (38-126) U/L Total Protein 8.2 (6.3-8.2) g/dL Albumin 4.6 (3.5-5.0) g/dL Globulin 3.6 (1.7-4.1) g/dL Albumin/Globulin Ratio 1.3 (1.0-2.8) Lipase 53 (23-300) U/L Point of care testing: Point of Care Testing Test Results Negative Urine Dip Bedside Urine Glucose Negative Bedside Urine Bilirubin - Negative Bedside Urine Ketone - Negative Urine Specific [place] 1.005 Bedside Urine Occult Blood - Negative Bedside Urine pH 6 Bedside Urine Protein - Negative Bedside Urine Urobilinogen - Negative Bedside Urine Nitrite - Negative Bedside Urine Leukocytes - Negative Esterase Discharge Plan Departure Patient Disposition: Home Clinical Impression: Abdominal pain, vomiting, and diarrhea Instructions: DI for Viral Gastroenteritis -- Adult Activity Restrictions/Additional Instructions: No immediately dangerous cause for symptoms is suspected at this time. I recommend ondansetron as needed for nausea and loperamide as needed for diarrhea. Keep herself well hydrated. Tylenol and ibuprofen are appropriate to manage the abdominal pain. Follow-up in a few days if symptoms are not resolved. Return to the emergency department for worsening symptoms they cannot be reasonably controlled with the medications described above. Prescriptions: New ondansetron 4 mg tablet,disintegrating 4 mg PO Q6H Qty: 10 0RF No Action prenat.vits,aaliyah,[id number] Tablet 1 tab PO DAILY labetalol 200 mg tablet 200 mg PO BID Qty: 60 0RF cefuroxime axetil 500 mg tablet 500 mg PO BID Qty: 14 0RF oxycodone 5 mg tablet 5 mg PO Q4H PRN (Reason: pain) Qty: 14 0RF Referrals: Emilee Martínez ARNP [Primary Care Provider] -
[2021-10-15] MEDS: ONDANSETRON 4 MG ODT PREPACK 1 BOTTLE MISC
== END 2021-10-15 00:04 | disposition home or self-care (01) ==
PROVIDERS: Emergency Provider Family Medicine Addiction Medicine; PCP Nurse Practitioner
DX: R10.9 Unspecified abdominal pain (principal); R19.7 Diarrhea, unspecified; R11.10 Vomiting, unspecified
CPT/HCPCS: 36415; 80053; 81003; 81025; 83690; 85025; 99283

== ENCOUNTER 2022-06-12 18:02 | Emergency (ER) | payer OTHER, MEDICAID, SELFPAY ==
[2021-10-19 12:10] VITALS: BMI 28.1
[2022-06-12 18:06] VITALS: BP 150/99; PULSE 81; RESP 16; TEMP 36.6; O2SAT 97; BMI 30.1
--- NOTE | 2022-06-12 18:20 | DI.CT.S_ITS ---
PROCEDURE: CT ANGIO HEAD AND NECK INDICATIONS: anisicoria, headache TECHNIQUE: Pre-contrast 4.5 mm thick sections acquired from the foramen magnum to the vertex. After the administration of intravenous contrast, 1 mm thick sections acquired from the aortic arch through the [place] of [place]. Post-contrast 4.5 mm thick sections then re-acquired from the foramen magnum to the vertex. 3-dimensional cqxbhdy-bkqkxdnzn-oytycfcbaj (MIP) and/or volume rendering reformats were acquired of the central intracranial vasculature and neck separately. For radiation dose reduction, the following was used: automated exposure control, adjustment of mA and/or kV according to patient size. COMPARISON: None. FINDINGS: Image quality: Excellent. BRAIN: CSF spaces: Ventricles are normal in size and shape. Basal cisterns are patent. No extra-axial fluid collections. Brain: No midline shift. No intracranial bleeds or masses. Boothe-white matter interface appears intact. Skull and face: Calvarium and facial bones appear intact, without suspicious lesions. Orbits appear normal. Sinuses: Sinuses and mastoids are clear. HEAD CT ANGIOGRAPHY: Anterior circulation: Intracranial internal carotid arteries are normal in size and flow. The flow within the paired anterior cerebral arteries is normal and symmetric. The flow within the middle cerebral arteries is normal and symmetric. The anterior communicating artery is seen. No aneurysms are seen. Posterior circulation: Visualized portions of the vertebral arteries demonstrate normal caliber, and join to form a normal appearing basilar artery. Right P1 segment is hypoplastic and the right posterior cerebral artery is predominantly supplied by right posterior communicating artery. Flow within the distal posterior cerebral arteries is normal and symmetric. No aneurysms are seen. NECK CT ANGIOGRAPHY: Carotid system: The great vessels demonstrate a conventional anatomy as they arise from the aortic arch. The origins of the common carotid arteries appear patent. The common carotid arteries demonstrate normal caliber and courses. The bifurcation regions are both widely patent. The internal carotid arteries demonstrate normal calibers and courses. Posterior circulation: The origins of the vertebral arteries both appear widely patent. The more superior extracranial portions of both vertebral arteries also demonstrate normal courses and calibers. They join to form a normal appearing basilar artery. Soft tissues: Visualized neck soft tissues demonstrate no suspicious abnormalities. Bones: No suspicious bony lesions. Visualized cervical spine appears normally aligned. IMPRESSION: 1. No CT evidence of acute intracranial process. 2. No evidence of acute intracranial arterial occlusion or aneurysm. 3. No evidence of carotid or vertebral arterial dissection or stenosis. Any quantitative measurements of stenosis were performed using NASCET criteria. Dictated by: Marycarmen Jaquez M.D. on 06/12/2022 at 20:42 Approved by: Marycarmen Jaquez M.D. on 06/12/2022 at 20:51
[2022-06-12 18:30] LABS: Add Manual Diff / Slide Review NO; Basophils Absolute Auto 100 /uL (0-100); Basophils Percent Auto 0.8 % (0-2); Eosinophils Absolute Auto 100 /uL (0-450); Eosinophils Percent Auto 1.1 % (2-4); Hematocrit 37.3 % (36-46); Hemoglobin 12.6 g/dL (12.0-16.0); Lymphocytes Absolute Auto 3600 /uL (1100-4500); Lymphocytes Percent Auto 31.8 % (25-40); Mean Corpuscular HGB Conc 33.7 % (30-36); Mean Corpuscular Hemoglobin 27.9 PG (26-34); Mean Corpuscular Volume 82.8 fL (80-100); Monocytes Absolute Auto 600 /uL (0-900); Monocytes Percent Auto 5.6 % (3-14); Neutrophils Absolute Auto 6800 /uL (1500-7000); Neutrophils Percent Auto 60.7 % (50-75); Platelet Count 438 X10^3/uL (150-400); White Blood Cell Count 11.3 X10^3/uL (4.5-11.0)
[2022-06-12 18:52] LABS: Alanine Aminotransferase 25 IU/L (<35); Albumin 4.6 g/dL (3.5-5.0); Albumin Globulin Ratio 1.2 (1.0-2.8); Alkaline Phosphatase 115 U/L (38-126); Aspartate Aminotransferase 24 IU/L (14-36); BUN Creatinine Ratio 21.6 (6-22); Bilirubin Total 0.2 mg/dL (0.2-1.3); Blood Urea Nitrogen 11 mg/dL (7-17); C-Reactive Protein Quant 0.8 mg/dL (<1.0); Calcium 9.4 mg/dL (8.4-10.2); Carbon Dioxide 25 mmol/L (22-32); Chloride 103 mmol/L (98-107); Estimated Glomerular Filt Rate > 60 mL/min (>60); Glucose 101 mg/dL (70-100); HEMOLYSIS < 15 (0-50); Sodium 138 mmol/L (137-145); Total Protein 8.6 g/dL (6.3-8.2)
[2022-06-12 18:53] LABS: Erythrocyte Sedimentation Rate 47 MM/HR (0-20)
[2022-06-12 19:35] LABS: Pregnancy Test Serum,Qual Negative (Negative)
--- NOTE | 2022-06-12 23:46 | ED_ITS ---
HPI - Neuro Symptoms/Deficit General Chief Complaint: Neuro Symptoms/Deficit Stated Complaint: uneven pupils/weakness/headache Time Seen by Provider: 06/12/22 18:20 Source: patient Mode of arrival: Ambulatory History of Present Illness HPI Narrative: Otherwise healthy 36-year-old woman who is 4 months still breast- feeding who noticed unequal pupils today. She had a slight headache spoke to her primary care physician who recommended that she come to the emergency department. Patient was recently diagnosed with mastitis that has since resolved without antibiotics. She is not on any additional medications he is not using scopolamine or other anti nausea medications no new topical anything with possibility of medications leaking into 1 of her eyes. She states that she does occasionally have headaches this does not feel particularly out of the norm for her. She does not describe vision changes and is not complaining of any other neurologic findings. She notes she was a little bit nauseated with her headache but has been able to eat and drink otherwise and by the time of our exam her headache has resolved. She complains of no abdominal pain, cough, palpitations or chest pain. On Anticoagulants: No Related Data Home Medications Medication Instructions Recorded Confirmed prenat.vits,aaliyah,[id number] 1 tab PO DAILY 12/07/20 06/02/22 Previous Rx's Medication Instructions Recorded paroxetine HCl 10 mg tablet 10 mg PO DAILY #90 tabs 12/15/21 Allergies Allergy/AdvReac Type Severity Reaction Status Date / Time codeine [CODEINE] AdvReac Severe Anaphylaxis Verified 06/02/22 15:31 Review of Systems Review of Systems Narrative: Pertinent positive and negative findings as per HPI Hematologic/Lymphatic On Anticoagulants: No Patient History Medical History Acne Antiphospholipid antibody positive Anxiety (~2018) History of multiple miscarriages (2012) History of recurrent ear infection History of urinary retention anxiety SAB (spontaneous ) (~2013) SAB (spontaneous ) (~2014) (spontaneous vaginal delivery) (~07/05/12) (spontaneous vaginal delivery) (~08/20/18) (spontaneous vaginal delivery) (~04/21/16) Surgical History Anesthesia S/P cholecystectomy (07/15/17) Family History Mother Asthma Diabetes mellitus Hypertension Hyperlipidemia Influenza Father Hypertension Brother Autism Grandfather Old age Grandmother Fall Grandfather Cancer Family estrangement Grandmother Diabetes mellitus Family estrangement Family/Other Hypertension Social History marital status: number of children: 3 household members: spouse and children lives independently: Yes caregiver/support person: No pets and animals: Yes (X 2 dogs) occupational status: unemployed current occupational exposures/hazards: No special william needs: No Smoking Status: Current every day smoker Tobacco: How many years used: 2 second hand exposure: No alcohol intake: former substance use type: does not use Smoking Status: Current every day smoker tobacco type: vaping alcohol intake frequency: 0-2 drinks per day Substance Use Type: does not use Exam Initial Vital Signs Initial Vital Signs: Vital Signs Temperature 97.9 F 06/12/22 18:06 Pulse Rate 81 06/12/22 18:06 Respiratory Rate 16 06/12/22 18:06 Blood Pressure 150/99 H 06/12/22 18:06 Pulse Oximetry 97 06/12/22 18:06 Oxygen Delivery Method Room Air 06/12/22 18:06 General: Alert appropriate in no acute distress HEENT: Pupils are equal and reactive bilaterally. Left pupil is 1-2 mm larger than the right. Visual acuity is at her baseline. Sclerae are unremarkable. There is no pain with pupillary constriction and extraocular eye movement is not restricted in any way. Respiratory: Able to speak in full sentences, no obvious respiratory distress Skin: No obvious rashes, warm and dry Neurologic: Grossly intact no obvious asymmetries or abnormalities Psych: appropriate insight and affect, cooperative Course Orders Ordered: ED Orders 06/12/22 18:15 CRP [C-Reactive Protein Quant] Stat Complete Blood Count AUTO DIFF Stat Comprehensive Metabolic Panel Stat Erythrocyte Sedimentation Rate Stat Test Serum,Qual Stat 06/12/22 18:20 CT angio head and neck Stat Vital Signs Vital signs: Vital Signs - 8 hr 06/12/22 18:06 Temperature 97.9 F Pulse Rate 81 Respiratory Rate 16 Blood Pressure 150/99 H Pulse Oximetry 97 Oxygen Delivery Method Room Air MDM - Neuro Symptoms/Deficit Lab Data 06/12/22 18:15 06/12/22 18:15 Labs: Lab Results 06/12/22 06/12/22 06/12/22 Range/Units 18:15 18:15 18:15 WBC 11.3 H (4.5-11.0) X10^3/uL RBC 4.50 (4.0-5.2) X10^6/uL Hgb 12.6 (12.0-16.0) g/dL Hct 37.3 (36-46) % MCV 82.8 (80-100) fL MCH 27.9 (26-34) PG MCHC 33.7 (30-36) % RDW 14.0 (11.6-14.8) % Plt Count 438 H (150-400) X10^3/uL Neut % (Auto) 60.7 (50-75) % Lymph % (Auto) 31.8 (25-40) % [place] % (Auto) 5.6 (3-14) % Eos % (Auto) 1.1 L (2-4) % Baso % (Auto) 0.8 (0-2) % Neut # (Auto) 6800 (4414-5251) /uL Lymph # (Auto) 3600 (1213-7728) /uL [place] # (Auto) 600 (0-900) /uL Eos # (Auto) 100 (0-450) /uL Baso # (Auto) 100 (0-100) /uL ESR 47 H (0-20) MM/HR Sodium 138 (137-145) mmol/L Potassium 4.0 (3.4-5.1) mmol/L Chloride 103 (98-107) mmol/L Carbon Dioxide 25 (22-32) mmol/L BUN 11 (7-17) mg/dL Creatinine 0.51 L (0.52-1.04) mg/dL Estimated GFR > 60 (>60) mL/min BUN/Creatinine Ratio 21.6 (6-22) Glucose 101 H (70-100) mg/dL Calcium 9.4 (8.4-10.2) mg/dL Total Bilirubin 0.2 (0.2-1.3) mg/dL AST 24 (14-36) IU/L ALT 25 (<35) IU/L Alkaline Phosphatase 115 (38-126) U/L C-Reactive Protein 0.8 (<1.0) mg/dL Total Protein 8.6 H (6.3-8.2) g/dL Albumin 4.6 (3.5-5.0) g/dL Globulin 4.0 (1.7-4.1) g/dL Albumin/Globulin Ratio 1.2 (1.0-2.8) Serum , Qual Negative (Negative) Point of Care Testing Test Results Negative Urine Dip Bedside Urine Glucose Negative Bedside Urine Bilirubin - Negative Bedside Urine Ketone - Negative Urine Specific [place] 1.020 Bedside Urine Occult Blood + Bedside Urine pH 6.0 Bedside Urine Protein - Negative Bedside Urine Urobilinogen - Negative Bedside Urine Nitrite - Negative Bedside Urine Leukocytes - Negative Esterase MDM Narrative Medical decision making narrative: CC: Acute anisocoria Complicating co-morbidities: 4 months Data collected from: patient, spouse Differential considered: Intracranial bleed, intracranial mass, adverse reaction to medicine or medicine exposure, ocular trauma Exam documented above, pertinent findings include: Slight anisocoria 1-2 mm left greater than right with pupils equal and reactive to direct and consensual testing. Lab Test results independently reviewed as above. Pertinent findings: CBC is unremarkable CMP is unremarkable Imaging studies independently reviewed: CT angiogram head and neck is reviewed. No intracranial masses, bleeding, aneurysms or alternate explanations that would explain her acute anisocoria Discussion: At this time patient is feeling back to her baseline, nausea has resolved. Reviewed studies with the patient. I am not finding any reason for hospital admission or additional evaluation at this time. With the mild anisocoria I would recommend regular outpatient ophthalmologic exam which her primary care doctor has been working on arranging for her after noting findings during their phone discussion today. Patient is safe for discharge home Discharge Plan Departure Patient Disposition: Home Clinical Impression: Physiologic anisocoria Activity Restrictions/Additional Instructions: Thank you for coming in today It is a bit disconcerting when your pupils are not equal. Fortunately they remain equally reactive. Meaning each response to light appropriately. I am not finding any life-threatening abnormalities to explain the findings. Your brain looks absolutely normal with no masses or tumors appreciated. The angiogram portion of the study that was done shows no abnormal bleeding or concern for aneurysms. At this time I suspect that this is simply physiologic. It may say like this for the rest of your life and you may note that it is much less noticeable within the next few days. I would recommend routine outpatient follow-up with an assistant branch operations manager for complete eye exam but at this point I believe discharge home is safe and I am not finding anything life-threatening or vision threatening that needs additional workup. If you find that you are getting worse or develop any new symptoms, please feel free to return to the emergency department for further evaluation. Prescriptions: No Action paroxetine HCl 10 mg tablet 10 mg PO DAILY Qty: 90 3RF Rx Instructions: Take 1 tab daily for anxiety prenat.vits,aaliyah,[id number] Tablet 1 tab PO DAILY Referrals: Emilee Martínez ARNP [Primary Care Provider] - Stand Alone Forms: Patient Portal/API
[2022-06-13 00:05] VITALS: BP 140/82; PULSE 84; RESP 18; O2SAT 100
== END 2022-06-13 00:05 | disposition home or self-care (01) ==
PROVIDERS: Emergency Provider Emergency Medicine; PCP Nurse Practitioner
DX: H57.02 Anisocoria (principal); R51.9 Headache, unspecified
CPT/HCPCS: 70496; 70498; 80053; 81003; 81025; 84703; 85025; 85651; 86140; 99283; 99284; Q9967

== ENCOUNTER → 2022-08-16 19:29 | Outpatient (CLI) | payer OTHER, MEDICAID, SELFPAY ==
[2021-10-19 12:10] VITALS: BMI 28.1
--- NOTE | 2022-08-16 19:30 | DI.MRI.S_ITS ---
PROCEDURE: MR HEAD/BRAIN WO/W CON INDICATIONS: unequal pupils increasing in fq and int, assoc w/[facility] TECHNIQUE: Noncontrast sagittal T1 spin echo, axial T2 fast spin echo, axial FLAIR, axial gradient echo, axial diffusion and ADC through the brain. Axial/sagittal/coronal 3-D CISS, thin-slice axial T1 spin echo with fat saturation through the orbits. After the administration of contrast, axial and coronal thin-slice T1 spin echo with fat saturation through the skull base, axial and coronal and sagittal T1 spin echo with fat saturation through the brain. COMPARISON: None. FINDINGS: Image quality: Excellent. Orbits : Globes are symmetrical and within normal limits. Intraconal fat is within normal limits. Extraocular muscles are intact. Optic nerves, chiasm and optic tracts are within normal limits. CSF spaces: Ventricles are normal in size and shape. No extra-axial fluid collections. Basal cisterns are patent. Brain: No intracranial bleeds or mass effects. No abnormal intracranial enhancement. Diffusion weighted images show no acute ischemic insults. Boothe-white matter interface is intact. Brainstem is normal. Normal intravascular flow voids are present. Skull and face: Calvarial marrow signal is normal. Orbits appear normal. Sinuses: Sinuses and mastoids appear clear. IMPRESSION: 1. Negative evaluation of the brain and orbits. 2. No acute process. No recent infarct. Through Dictated by: Madeleine Salas M.D. on 08/17/2022 at 8:50 Approved by: Madeleine Salas M.D. on 08/17/2022 at 8:52
== END ==
PROVIDERS: PCP Nurse Practitioner; Referring Provider Nurse Practitioner; Visit Provider Nurse Practitioner
DX: H57.02 Anisocoria (principal)
CPT/HCPCS: 70553; A9579

== ENCOUNTER → 2022-10-16 09:49 | Outpatient (CLI) | payer OTHER, MEDICAID, SELFPAY ==
[2021-10-19 12:10] VITALS: BMI 28.1
[2022-10-16 11:02] LABS: Add Manual Diff / Slide Review NO; Basophils Absolute Auto 0 /uL (0-100); Basophils Percent Auto 0.5 % (0-2); Eosinophils Absolute Auto 100 /uL (0-450); Eosinophils Percent Auto 0.9 % (2-4); Hemoglobin 12.8 g/dL (12.0-16.0); Lymphocytes Absolute Auto 2100 /uL (1100-4500); Lymphocytes Percent Auto 29.1 % (25-40); Mean Corpuscular HGB Conc 33.7 % (30-36); Mean Corpuscular Hemoglobin 28.3 PG (26-34); Mean Corpuscular Volume 84.1 fL (80-100); Monocytes Absolute Auto 300 /uL (0-900); Monocytes Percent Auto 4.7 % (3-14); Neutrophils Absolute Auto 4700 /uL (1500-7000); Neutrophils Percent Auto 64.8 % (50-75); Platelet Count 386 X10^3/uL (150-400); Red Blood Cell Count 4.51 X10^6/uL (4.0-5.2); Red Cell Distribution Width 13.9 % (11.6-14.8); White Blood Cell Count 7.3 X10^3/uL (4.5-11.0)
[2022-10-16 11:23] LABS: Alanine Aminotransferase 20 IU/L (<35); Albumin 4.5 g/dL (3.5-5.0); Albumin Globulin Ratio 1.3 (1.0-2.8); Alkaline Phosphatase 83 U/L (38-126); Aspartate Aminotransferase 22 IU/L (14-36); BUN Creatinine Ratio 20.7 (6-22); Bilirubin Total 0.3 mg/dL (0.2-1.3); Blood Urea Nitrogen 12 mg/dL (7-17); Calcium 9.5 mg/dL (8.4-10.2); Carbon Dioxide 27 mmol/L (22-32); Chloride 103 mmol/L (98-107); Creatine Kinase 54 U/L (30-135); Estimated Glomerular Filt Rate > 60 mL/min (>60); Globulin 3.5 g/dL (1.7-4.1); Glucose 103 mg/dL (70-100); HEMOLYSIS < 15 (0-50); Sodium 139 mmol/L (137-145)
[2022-10-16 11:32] LABS: Troponin I < 0.012 ng/mL (0.01-0.034)
[2022-10-16 11:50] LABS: Microalbumin Urine Random < 0.6 mg/dL (0-1.6)
[2022-10-16 11:55] LABS: TSH w/ Reflex to FT4 1.59 uIU/mL (0.47-4.68)
== END ==
PROVIDERS: PCP Nurse Practitioner; Referring Provider Family Medicine; Visit Provider Family Medicine
DX: F17.200 Nicotine dependence, unspecified, uncomplicated (principal); I10 Essential (primary) hypertension
CPT/HCPCS: 36415; 80053; 82043; 82550; 82570; 84443; 84484; 85025

== ENCOUNTER 2023-01-16 11:03 | Emergency (ER) | payer OTHER, MEDICAID, SELFPAY ==
[2021-10-19 12:10] VITALS: BMI 28.1
[2023-01-16] VITALS (14 sets, daily range): BP systolic 107–141; BP diastolic 68–88; PULSE 62–82; RESP 14–24; TEMP 36.8; O2SAT 97–100; BMI 26.6
--- NOTE | 2023-01-16 11:14 | DI.RAD.S_ITS ---
PROCEDURE: XR CHEST 1V INDICATIONS: chest pain TECHNIQUE: One view of the chest was acquired. COMPARISON: [facility], CR, XR CHEST 1V, 10/27/2018, 12:56. [facility], CR, XR CHEST 2V, 07/28/2017, 18:40. FINDINGS: Surgical changes and devices: None. Lungs and pleura: Lungs are clear. No pleural effusions or pneumothorax. Mediastinum: Mediastinal contours appear normal. Heart size is normal. Bones and chest wall: No suspicious bony lesions. Overlying soft tissues appear unremarkable. IMPRESSION: Single-view chest radiograph. No acute abnormality. Dictated by: Robert Zhang M.D. on 01/16/2023 at 11:30 Approved by: Robert Zhang M.D. on 01/16/2023 at 11:30
[2023-01-16] MEDS: ASPIRIN 81 MG CHEW TAB 324 MG PO (11:43)
[2023-01-16 11:46] LABS: Add Manual Diff / Slide Review NO; Basophils Absolute Auto 100 /uL (0-100); Basophils Percent Auto 0.7 % (0-2); Eosinophils Absolute Auto 100 /uL (0-450); Eosinophils Percent Auto 0.8 % (2-4); Hematocrit 37.2 % (36-46); Hemoglobin 12.7 g/dL (12.0-16.0); Lymphocytes Absolute Auto 2900 /uL (1100-4500); Lymphocytes Percent Auto 31.8 % (25-40); Mean Corpuscular HGB Conc 34.1 % (30-36); Mean Corpuscular Hemoglobin 28.3 PG (26-34); Mean Corpuscular Volume 83.1 fL (80-100); Monocytes Absolute Auto 500 /uL (0-900); Monocytes Percent Auto 5.5 % (3-14); Neutrophils Absolute Auto 5500 /uL (1500-7000); Neutrophils Percent Auto 61.2 % (50-75); Platelet Count 318 X10^3/uL (150-400); Red Blood Cell Count 4.47 X10^6/uL (4.0-5.2); Red Cell Distribution Width 13.6 % (11.6-14.8); White Blood Cell Count 9.1 X10^3/uL (4.5-11.0)
[2023-01-16 11:55] LABS: INR 1.1 (0.9-1.3); Prothrombin Time 12.2 SECONDS (10.1-12.7)
[2023-01-16 11:58] LABS: PTT Partial Thromboplastin Tim 32 SECONDS (26-36)
[2023-01-16 12:01] LABS: Alanine Aminotransferase 19 IU/L (<35); Albumin 4.8 g/dL (3.5-5.0); Albumin Globulin Ratio 1.4 (1.0-2.8); Alkaline Phosphatase 74 U/L (38-126); Aspartate Aminotransferase 23 IU/L (14-36); BUN Creatinine Ratio 19.2 (6-22); Bilirubin Total 0.5 mg/dL (0.2-1.3); Blood Urea Nitrogen 10 mg/dL (7-17); Calcium 10.1 mg/dL (8.4-10.2); Carbon Dioxide 23 mmol/L (22-32); Chloride 104 mmol/L (98-107); Creatine Kinase 90 U/L (30-135); Estimated Glomerular Filt Rate > 60 mL/min (>60); Globulin 3.5 g/dL (1.7-4.1); Glucose 96 mg/dL (70-100); HEMOLYSIS 19 (0-50); Lipase 58 U/L (23-300); Potassium 4.3 mmol/L (3.4-5.1); Sodium 137 mmol/L (137-145); Total Protein 8.3 g/dL (6.3-8.2)
[2023-01-16 12:12] LABS: Troponin I < 0.012 ng/mL (0.01-0.034)
--- NOTE | 2023-01-16 14:22 | ED.CHESTPAIN ---
HPI - Chest Pain General Chief Complaint: Chest Pain Stated Complaint: heaviness in chest with pain Time Seen by Provider: 01/16/23 14:22 Source: patient Mode of arrival: Family Vehicle Limitations: no limitations History of Present Illness HPI narrative: 37-year-old with history of anxiety on bupropion with anticardiolipin, patient comes in with left-sided chest pain shooting towards her breast and some heaviness that started 11:00 a.m. some warmth in her back. She states that is improved but not totally gone. No shortness of breath. No syncope. No fevers or chills. No cold cough or congestive symptoms. She is sort of had similar symptoms in the past but not exactly the same. Denies any nausea or vomiting, no diaphoresis. No swelling in extremities. No issues with bowel movements or urination. Patient states bupropion only daily medication. She is had a cholecystectomy about smelly 5 years ago. Reported allergy to codeine. Quit smoking in the last several months. No alcohol for the past year. No recreational drugs. No known cardiac, vascular pulmonary embolic history in her family. Related Data Home Medications Medication Instructions Recorded Confirmed propranolol 10 mg tablet 20 mg PO TID PRN 10/16/22 01/10/23 Previous Rx's Medication Instructions Recorded bupropion HCl 300 mg 24 hr tablet, 300 mg PO QAM #90 tabs 01/10/23 extended release Allergies Allergy/AdvReac Type Severity Reaction Status Date / Time codeine [CODEINE] Allergy Severe Anaphylaxis Verified 01/16/23 11:20 Review of Systems Review of Systems ROS Unobtainable: All systems reviewed & are unremarkable except as noted in HPI and below Patient History Medical History Hypertension Pupil asymmetry anxiety (spontaneous vaginal delivery) (~04/21/16) (spontaneous vaginal delivery) (~08/20/18) (spontaneous vaginal delivery) (~07/05/12) SAB (spontaneous ) (~2014) SAB (spontaneous ) (~2013) Anxiety (~2018) Antiphospholipid antibody positive Acne History of recurrent ear infection History of multiple miscarriages (2012) History of urinary retention Surgical History Anesthesia S/P cholecystectomy (07/15/17) Family History Mother Asthma Diabetes mellitus Hypertension Hyperlipidemia Influenza Father Hypertension Brother Autism Grandfather Old age Grandmother Fall Grandfather Cancer Family estrangement Grandmother Diabetes mellitus Family estrangement Family/Other Hypertension Social History marital status: number of children: 3 household members: spouse and children lives independently: Yes caregiver/support person: No pets and animals: Yes (X 2 dogs) occupational status: unemployed current occupational exposures/hazards: No special william needs: No Smoking Status: Current every day smoker Tobacco: How many years used: 2 second hand exposure: No alcohol intake: former substance use type: does not use Smoking Status: Current every day smoker tobacco type: vaping alcohol intake frequency: 0-2 drinks per day Substance Use Type: does not use Exam Narrative Exam Narrative: GENERAL: Alert and oriented x three, well-appearing female in no acute distress. HEENT: Head normocephalic, atraumatic, EOMI, pupils reactive, face symmetric, moist mucous membranes NECK: Supple, full range of motion CARDIOVASCULAR: Regular rate and rhythm without murmurs, rubs or gallops. No reproducible chest pain. No rash or skin changes. No edema bilateral lower extremities. RESPIRATORY: Breath sounds equal bilaterally, no wheezes rales or rhonchi. No tachypnea or accessory muscle use. ABDOMEN: Soft, nontender. Normoactive bowel sounds all 4 quadrants. No guarding or rebound, rigidity, no mass : No CVA tenderness EXTREMITIES: Normal range of motion, no clubbing or edema. Neurovascularly intact NEUROLOGICAL: Cranial nerves II through XII grossly intact. Moving all extremities SKIN: Warm, dry, no petechiae, no rashes or lesions. Initial Vital Signs Initial Vital Signs: Vital Signs Temperature 98.3 F 01/16/23 11:15 Pulse Rate 82 01/16/23 11:15 Respiratory Rate 16 01/16/23 11:15 Blood Pressure 123/88 01/16/23 11:15 Pulse Oximetry 100 01/16/23 11:15 Oxygen Delivery Method Room Air 01/16/23 11:15 Scores HEART Score Heart Score history: Slightly Suspicious Heart Score EKG: Normal Heart Score Age: < 45 years old Heart Score risk factors: 1-2 risk factors Heart Score troponin: < or = to normal limit Heart Score Total: 1 PERC Score Age greater than or equal to 50 years: No Heart rate greater than or equal to 100 bpm: No Room Air O2 Sat less than 95%: No Unilateral leg swelling: No Recent trauma or surgery: No Hemoptysis: No Prior PE or DVT: No Hormone Use: No Total PERC Score: 0 Course Orders Ordered: Discontinued Medications Aspirin (Aspirin 81 Mg Chew Tab) 324 mg PO NOW ONE Stop: 01/16/23 11:15 Last Admin: 01/16/23 11:43 Dose: 324 mg Documented By: TRENT Vital Signs Vital signs: Vital Signs - 8 hr 01/16/23 11:15 01/16/23 11:45 01/16/23 11:46 Temperature 98.3 F Pulse Rate 82 79 66 Respiratory Rate 16 Blood Pressure 123/88 Pulse Oximetry 100 99 100 Oxygen Delivery Method Room Air 01/16/23 11:46 01/16/23 12:00 01/16/23 12:30 Temperature Pulse Rate 67 62 Respiratory Rate 20 14 Blood Pressure 138/82 138/82 Pulse Oximetry 98 97 Oxygen Delivery Method 01/16/23 13:00 01/16/23 13:30 01/16/23 14:00 Temperature Pulse Rate 74 76 77 Respiratory Rate 16 17 24 Blood Pressure Pulse Oximetry 98 98 98 Oxygen Delivery Method 01/16/23 14:02 01/16/23 14:02 01/16/23 14:03 Temperature Pulse Rate 78 74 Respiratory Rate 23 20 Blood Pressure 114/75 114/75 Pulse Oximetry 98 99 Oxygen Delivery Method Room Air 01/16/23 14:30 01/16/23 14:42 01/16/23 14:42 Temperature Pulse Rate 67 77 Respiratory Rate 22 24 Blood Pressure 114/78 Pulse Oximetry 99 98 Oxygen Delivery Method 01/16/23 15:00 01/16/23 15:00 01/16/23 15:30 Temperature Pulse Rate 73 Respiratory Rate 21 Blood Pressure 107/68 141/80 H Pulse Oximetry 98 Oxygen Delivery Method Room Air 01/16/23 15:30 Temperature Pulse Rate 75 Respiratory Rate 21 Blood Pressure Pulse Oximetry 98 Oxygen Delivery Method MDM - Chest Pain Lab Data 01/16/23 11:30 01/16/23 11:30 Labs: Lab Results 01/16/23 01/16/23 Range/Units 11:30 15:22 WBC 9.1 (4.5-11.0) X10^3/uL RBC 4.47 (4.0-5.2) X10^6/uL Hgb 12.7 (12.0-16.0) g/dL Hct 37.2 (36-46) % MCV 83.1 (80-100) fL MCH 28.3 (26-34) PG MCHC 34.1 (30-36) % RDW 13.6 (11.6-14.8) % Plt Count 318 (150-400) X10^3/uL Neut % (Auto) 61.2 (50-75) % Lymph % (Auto) 31.8 (25-40) % Baxter % (Auto) 5.5 (3-14) % Eos % (Auto) 0.8 L (2-4) % Baso % (Auto) 0.7 (0-2) % Neut # (Auto) 5500 (8284-9587) /uL Lymph # (Auto) 2900 (5127-2498) /uL Baxter # (Auto) 500 (0-900) /uL Eos # (Auto) 100 (0-450) /uL Baso # (Auto) 100 (0-100) /uL PT 12.2 (10.1-12.7) SECONDS INR 1.1 (0.9-1.3) APTT 32 (26-36) SECONDS Sodium 137 (137-145) mmol/L Potassium 4.3 (3.4-5.1) mmol/L Chloride 104 (98-107) mmol/L Carbon Dioxide 23 (22-32) mmol/L BUN 10 (7-17) mg/dL Creatinine 0.52 (0.52-1.04) mg/dL Estimated GFR > 60 (>60) mL/min BUN/Creatinine Ratio 19.2 (6-22) Glucose 96 (70-100) mg/dL Calcium 10.1 (8.4-10.2) mg/dL Magnesium 2.0 (1.6-2.3) mg/dL Total Bilirubin 0.5 (0.2-1.3) mg/dL AST 23 (14-36) IU/L ALT 19 (<35) IU/L Alkaline Phosphatase 74 (38-126) U/L Total Creatine Kinase 90 (30-135) U/L Troponin I < 0.012 < 0.012 (0.01-0.034) ng/mL Total Protein 8.3 H (6.3-8.2) g/dL Albumin 4.8 (3.5-5.0) g/dL Globulin 3.5 (1.7-4.1) g/dL Albumin/Globulin Ratio 1.4 (1.0-2.8) Lipase 58 (23-300) U/L Point of Care Testing Test Results Negative Urine Dip Bedside Urine Glucose Negative Bedside Urine Bilirubin - Negative Bedside Urine Ketone - Negative Urine Specific Kiel 1.005 Bedside Urine Occult Blood - Negative Bedside Urine pH 6 Bedside Urine Protein - Negative Bedside Urine Urobilinogen - Negative Bedside Urine Nitrite - Negative Bedside Urine Leukocytes - Negative Esterase Imaging Data Chest x-ray: Radiologist's Impression: [address] [address] XRay Report Signed Patient: Danica Gonzalez MR#: [id number] : 1985 Acct:[id number] Age/Sex: 37 / F Date of Service: 01/16/23 Loc: ED Accession Number: [id number] Procedure: XR chest 1V Ordering Provider: Karen Mayen D.O. PROCEDURE: XR CHEST 1V INDICATIONS: chest pain TECHNIQUE: One view of the chest was acquired. COMPARISON: [facility], CR, XR CHEST 1V, 10/27/2018, 12:56. [facility], CR, XR CHEST 2V, 07/28/2017, 18:40. FINDINGS: Surgical changes and devices: None. Lungs and pleura: Lungs are clear. No pleural effusions or pneumothorax. Mediastinum: Mediastinal contours appear normal. Heart size is normal. Bones and chest wall: No suspicious bony lesions. Overlying soft tissues appear unremarkable. IMPRESSION: Single-view chest radiograph. No acute abnormality. Dictated by: Robert Zhang M.D. on 01/16/2023 at 11:30 Approved by: Robert Zhang M.D. on 01/16/2023 at 11:30 ECG Data Attestation: I personally reviewed and interpreted this ECG as follows: Interpretation: Sinus rhythm rate of 60 6p are 130 QRS 86 QTC of 408, no acute ST elevation depression noted. EKG 2. Shows no acute change. Rate of 72 TN 138 QRS 84 QTC 420. MDM Narrative Medical decision making narrative: 37-year-old female with complaint of left-sided chest pain which is still present but not any worsened. No tachycardia, no hypotension no hypoxia is afebrile. No acute EKG changes CBC CMP, she LFTs and coags are negative. Troponin was negative. Chest x-ray showed no acute change. EKG x2 shows no acute or dynamic changes. Troponin was repeated based on short timeline. Heart score is 1. PERC is negative Patient does not have a lot of high-risk factors. Negative EKGs negative troponins, patient felt appropriate for discharge home with return precautions Discharge Plan Departure Patient Disposition: Home Clinical Impression: Chest pain Prescriptions: No Action propranolol 10 mg tablet 20 mg PO TID PRN Rx Instructions: Take 1-2 tabs up to 3x/day as needed for anxiety or panic bupropion HCl 300 mg tablet extended release 24 hr 300 mg PO QAM Qty: 90 3RF Referrals: Emilee Martínez ARNP [Primary Care Provider] - Stand Alone Forms: Patient Portal/API
[2023-01-16 15:52] LABS: Troponin I < 0.012 ng/mL (0.01-0.034)
== END 2023-01-16 16:56 | disposition home or self-care (01) ==
PROVIDERS: Emergency Provider Emergency Medicine; PCP Nurse Practitioner
DX: R07.9 Chest pain, unspecified (principal)
CPT/HCPCS: 36415; 71045; 80053; 81003; 81025; 82550; 83690; 83735; 84484; 85025; 85610; 85730; 93005; 93010; 99284

== ENCOUNTER 2023-01-19 17:53 | Emergency (ER) | payer OTHER, MEDICAID, SELFPAY ==
[2021-10-19 12:10] VITALS: BMI 28.1
[2023-01-19] VITALS (8 sets, daily range): BP systolic 109–122; BP diastolic 69–80; PULSE 95–111; RESP 11–23; TEMP 37; O2SAT 97–100; BMI 26.6
--- NOTE | 2023-01-19 18:36 | ED.NAVMDI ---
HPI - Nausea/Vomiting/Diarrhea General Chief complaint: Nausea/Vomiting/Diarrhea Stated complaint: states food poisoning Time Seen by Provider: 01/19/23 18:29 Source: patient Mode of arrival: Wheelchair History of Present Illness HPI Narrative: Patient is otherwise healthy 37-year-old female who is here for evaluation of nausea and vomiting. Did have some diarrhea earlier today. Symptoms started today. No fevers. Other individuals in the family are also having very similar symptoms. No recent antibiotics. They did travel to a relative's house yesterday for Thanksgiving but no out of state/country travel. Does have some epigastric abdominal pain. Has not tried anything for the symptoms prior to arrival. Related Data Home Medications Medication Instructions Recorded Confirmed propranolol 10 mg tablet 20 mg PO TID PRN 10/16/22 01/10/23 Previous Rx's Medication Instructions Recorded bupropion HCl 300 mg 24 hr tablet, 300 mg PO QAM #90 tabs 01/10/23 extended release ondansetron 4 mg disintegrating 4 mg PO Q6H PRN nausea and 01/19/23 tablet vomiting #14 tabs Allergies Allergy/AdvReac Type Severity Reaction Status Date / Time No Known Drug Allergies Allergy Verified 01/19/23 18:12 Review of Systems Constitutional Constitutional: Reports system reviewed and no additional complaints, except as documented Cardiovascular Cardiovascular: Reports system reviewed and no additional complaints, except as documented Respiratory Respiratory: Reports system reviewed and no additional complaints, except as documented Gastrointestinal Gastrointestinal: Reports system reviewed and no additional complaints, except as documented Integumentary/Breasts Skin/Breast: Reports system reviewed and no additional complaints, except as documented Hematologic/Lymphatic On Anticoagulants: No Patient History Medical History Hypertension Pupil asymmetry anxiety (spontaneous vaginal delivery) (~04/21/16) (spontaneous vaginal delivery) (~08/20/18) (spontaneous vaginal delivery) (~07/05/12) SAB (spontaneous ) (~2014) SAB (spontaneous ) (~2013) Anxiety (~2018) Antiphospholipid antibody positive Acne History of recurrent ear infection History of multiple miscarriages (2012) History of urinary retention Surgical History Anesthesia S/P cholecystectomy (07/15/17) Family History Mother Asthma Diabetes mellitus Hypertension Hyperlipidemia Influenza Father Hypertension Brother Autism Grandfather Old age Grandmother Fall Grandfather Cancer Family estrangement Grandmother Diabetes mellitus Family estrangement Family/Other Hypertension Social History marital status: number of children: 3 household members: spouse and children lives independently: Yes caregiver/support person: No pets and animals: Yes (X 2 dogs) occupational status: unemployed current occupational exposures/hazards: No special william needs: No Smoking Status: Current every day smoker Tobacco: How many years used: 2 second hand exposure: No alcohol intake: former substance use type: does not use Smoking Status: Current every day smoker tobacco type: vaping alcohol intake frequency: holidays/special occasions only Substance Use Type: does not use Exam Initial Vital Signs Initial Vital Signs: Vital Signs Temperature 98.6 F 01/19/23 18:12 Pulse Rate 107 H 01/19/23 18:12 Respiratory Rate 16 01/19/23 18:12 Blood Pressure 115/69 01/19/23 18:12 Pulse Oximetry 98 01/19/23 18:12 Oxygen Delivery Method Room Air 01/19/23 18:12 Const General: cooperative, comfortable and No ill appearing Resp Effort & Inspection: normal respiratory effort Auscultation: clear to auscultation bilaterally Cardio Rate: regular rate Rhythm: regular rhythm GI Inspection: normal to inspection and non-distended Palpation: soft, No firm, No guarding and tender (Epigastric region) Neuro General: patient alert, patient awake and moves all extremities Extrem General: capillary refill normal Course Orders Ordered: ED Orders 01/19/23 18:55 Complete Blood Count AUTO DIFF Stat Comprehensive Metabolic Panel Stat Lipase Stat Sodium Chloride (Normal Saline 0.9%) 1,000 mls @ 1,000 mls/hr IV BOLUS ONE Stop: 01/19/23 21:02 Last Admin: 01/19/23 20:14 Dose: 1,000 mls/hr Documented By: ANA Discontinued Medications Sodium Chloride (Normal Saline 0.9%) 1,000 mls @ 1,000 mls/hr IV BOLUS ONE Stop: 01/19/23 19:36 Last Infusion: 01/19/23 19:35 Dose: Infused Documented By: Admin: 01/19/23 19:03 Dose: 1,000 mls/hr Documented By: SUZY Ondansetron HCl (Ondansetron 4 Mg/2 Ml Inj) 4 mg IV NOW ONE Stop: 01/19/23 18:38 Last Admin: 01/19/23 19:03 Dose: 4 mg Documented By: SUZY Ondansetron HCl (Ondansetron 4 Mg Odt Prepack) 1 bottle MISC DIRECTED ONE Stop: 01/19/23 20:05 Last Admin: 01/19/23 20:15 Dose: 1 bottle Documented By: ANA Vital Signs Vital signs: Vital Signs - 8 hr 01/19/23 18:12 01/19/23 18:19 01/19/23 18:19 Temperature 98.6 F Pulse Rate 107 H 111 H Respiratory Rate 16 Blood Pressure 115/69 119/80 Pulse Oximetry 98 97 Oxygen Delivery Method Room Air 01/19/23 18:30 01/19/23 18:30 01/19/23 18:56 Temperature Pulse Rate 98 H Respiratory Rate 11 L Blood Pressure 113/77 116/74 Pulse Oximetry 98 Oxygen Delivery Method 01/19/23 18:56 01/19/23 19:00 01/19/23 19:00 Temperature Pulse Rate 102 H 103 H Respiratory Rate 18 Blood Pressure 109/75 Pulse Oximetry 98 97 Oxygen Delivery Method 01/19/23 19:30 01/19/23 19:30 Temperature Pulse Rate 97 H Respiratory Rate 23 Blood Pressure 122/79 Pulse Oximetry 100 Oxygen Delivery Method MDM - Nausea/Vomiting/Diarrhea Lab Data Attestation: I reviewed the patient's lab results. 01/19/23 18:55 01/19/23 18:55 Labs: Lab Results 01/19/23 Range/Units 18:55 WBC 11.0 (4.5-11.0) X10^3/uL RBC 4.53 (4.0-5.2) X10^6/uL Hgb 12.8 (12.0-16.0) g/dL Hct 37.9 (36-46) % MCV 83.7 (80-100) fL MCH 28.2 (26-34) PG MCHC 33.7 (30-36) % RDW 13.7 (11.6-14.8) % Plt Count 315 (150-400) X10^3/uL Neut % (Auto) 91.0 H (50-75) % Lymph % (Auto) 6.0 L (25-40) % Hancock % (Auto) 2.5 L (3-14) % Eos % (Auto) 0.3 L (2-4) % Baso % (Auto) 0.2 (0-2) % Neut # (Auto) 51858 H (2805-1541) /uL Lymph # (Auto) 700 L (5213-9240) /uL Hancock # (Auto) 300 (0-900) /uL Eos # (Auto) 0 (0-450) /uL Baso # (Auto) 0 (0-100) /uL Sodium 137 (137-145) mmol/L Potassium 3.9 (3.4-5.1) mmol/L Chloride 106 (98-107) mmol/L Carbon Dioxide 22 (22-32) mmol/L BUN 15 (7-17) mg/dL Creatinine 0.56 (0.52-1.04) mg/dL Estimated GFR > 60 (>60) mL/min BUN/Creatinine Ratio 26.8 H (6-22) Glucose 120 H (70-100) mg/dL Calcium 9.3 (8.4-10.2) mg/dL Total Bilirubin 0.7 (0.2-1.3) mg/dL AST 21 (14-36) IU/L ALT 19 (<35) IU/L Alkaline Phosphatase 73 (38-126) U/L Total Protein 8.1 (6.3-8.2) g/dL Albumin 4.7 (3.5-5.0) g/dL Globulin 3.4 (1.7-4.1) g/dL Albumin/Globulin Ratio 1.4 (1.0-2.8) Lipase 33 (23-300) U/L [facility] Narrative Medical decision making narrative: Patient has unremarkable labs. Unremarkable exam. Her tachycardia improved with fluids. Her abdominal discomfort improved with fluids. She was able to tolerate oral intake. Other members of the family have very similar symptoms. I suspect that this is something that they ate most likely over the iday. No indication for radiologic studies. No indication for admission to the hospital. Will send home with [facility] medicine. She was given return precautions. She expressed understanding and agreement with plan. Discharge Plan Departure Patient Disposition: Home Clinical Impression: Nausea and vomiting Instructions: Nausea and Vomiting-Adult Activity Restrictions/Additional Instructions: I do recommend a bland diet. Be sure that you were trying to increase your fluid intake. I would not be surprised if you have more loose stools over the next couple days. Return to the emergency department for worsening symptoms or inability to tolerate any fluids by mouth. Prescriptions: New ondansetron 4 mg tablet,disintegrating 4 mg PO Q6H PRN (Reason: nausea and vomiting) Qty: 14 0RF No Action propranolol 10 mg tablet 20 mg PO TID PRN Rx Instructions: Take 1-2 tabs up to 3x/day as needed for anxiety or panic bupropion HCl 300 mg tablet extended release 24 hr 300 mg PO QAM Qty: 90 3RF Referrals: Emilee Martínez ARNP [Primary Care Provider] - Stand Alone Forms: Patient Portal/API
[2023-01-19] MEDS: ONDANSETRON 4 MG/2 ML INJ IV (19:03)
[2023-01-19] MEDS: SODIUM CHLORIDE 0.9% 1,000 ML 1000 ML IV ×2 (19:03→20:14)
[2023-01-19 19:04] LABS: Add Manual Diff / Slide Review NO; Basophils Absolute Auto 0 /uL (0-100); Basophils Percent Auto 0.2 % (0-2); Eosinophils Absolute Auto 0 /uL (0-450); Eosinophils Percent Auto 0.3 % (2-4); Hematocrit 37.9 % (36-46); Hemoglobin 12.8 g/dL (12.0-16.0); Lymphocytes Absolute Auto 700 /uL (1100-4500); Mean Corpuscular HGB Conc 33.7 % (30-36); Mean Corpuscular Hemoglobin 28.2 PG (26-34); Mean Corpuscular Volume 83.7 fL (80-100); Monocytes Absolute Auto 300 /uL (0-900); Monocytes Percent Auto 2.5 % (3-14); Neutrophils Absolute Auto 10000 /uL (1500-7000); Platelet Count 315 X10^3/uL (150-400); Red Blood Cell Count 4.53 X10^6/uL (4.0-5.2); Red Cell Distribution Width 13.7 % (11.6-14.8)
[2023-01-19 19:18] LABS: Alanine Aminotransferase 19 IU/L (<35); Albumin 4.7 g/dL (3.5-5.0); Albumin Globulin Ratio 1.4 (1.0-2.8); Alkaline Phosphatase 73 U/L (38-126); Aspartate Aminotransferase 21 IU/L (14-36); BUN Creatinine Ratio 26.8 (6-22); Bilirubin Total 0.7 mg/dL (0.2-1.3); Blood Urea Nitrogen 15 mg/dL (7-17); Calcium 9.3 mg/dL (8.4-10.2); Carbon Dioxide 22 mmol/L (22-32); Chloride 106 mmol/L (98-107); Estimated Glomerular Filt Rate > 60 mL/min (>60); Globulin 3.4 g/dL (1.7-4.1); Glucose 120 mg/dL (70-100); HEMOLYSIS < 15 (0-50); Lipase 33 U/L (23-300); Potassium 3.9 mmol/L (3.4-5.1); Sodium 137 mmol/L (137-145); Total Protein 8.1 g/dL (6.3-8.2)
[2023-01-19] MEDS: ONDANSETRON 4 MG ODT PREPACK 1 BOTTLE MISC (20:15)
== END 2023-01-19 20:58 | disposition home or self-care (01) ==
PROVIDERS: Emergency Provider Emergency Medicine; PCP Nurse Practitioner
DX: R11.2 Nausea with vomiting, unspecified (principal); R19.7 Diarrhea, unspecified; R00.0 Tachycardia, unspecified
CPT/HCPCS: 36415; 80053; 83690; 85025; 93005; 93010; 96374; 99284; J2405

== ENCOUNTER → 2023-03-20 06:44 | Outpatient (CLI) | payer OTHER, MEDICAID, SELFPAY ==
[2021-10-19 12:10] VITALS: BMI 28.1
--- NOTE | 2023-03-20 06:45 | DI.ECHO.S_ITS ---
[place] +---------+ [facility] +---------+ : : [address] : : : : [id number] : : : : Phone: [phone]+ Echocardiogram Report + + :Name: PRETTY ABREU Study Date: 03/20/2023 Height: 68 in : :[facility] ReadingLocation: Weight: 175 lb : : Gender: Female BSA: 1.9 m2 : :: 1985 Age: 37 yrs BP: 129/97 mmHg: :Reason For Study: HYPERTENSION : :Ordering Physician: HANNA, : :SENDY Performed By: Stacy Catalan : :Referring: SENDY FERREIRA : + + Interpretation Summary The ejection fraction is estimated to be 55-60%. There is mild tricuspid regurgitation. The right ventricular systolic pressure is estimated to be at least 22 mmHg based on an estimated right atrial pressure of 3 mm Hg. Procedure: A two-dimensional transthoracic echocardiogram with color flow and Doppler was performed. The study quality was technically adequate. There is no prior echocardiogram noted for this patient. The patient was in sinus rhythm with heart rates between 61-84 bpm during the exam. Left Ventricle: The left ventricle is normal in size and wall thickness. The ejection fraction is estimated to be 55-60%. Left ventricular wall motion is normal. Right Ventricle: The right ventricle is normal in size and function. Atria: The left atrial size is normal. Right atrial size is normal. There is no Doppler evidence for an interatrial shunt. Mitral Valve: The mitral valve is normal in structure and function. There is trace mitral regurgitation. Aortic Valve: The aortic valve is trileaflet. The aortic valve opens well. There is no aortic valve stenosis. No aortic regurgitation is present. Tricuspid Valve: The tricuspid valve is normal in structure and function. There is mild tricuspid regurgitation. The right ventricular systolic pressure is estimated to be at least 22 mmHg based on an estimated right atrial pressure of 3 mm Hg. Pulmonic Valve: The pulmonic valve leaflets are thin and pliable; valve motion is normal. There is mild pulmonic regurgitation. Great Vessels: The aortic root is normal size. The dimensions of the ascending aorta are normal. The IVC is of normal diameter and collapses greater than 50% with a sniff. This suggests a low right atrial pressure of 3 mm Hg. Pericardium/ Pleura There is no pericardial effusion. There is no pleural effusion. MMode/2D Measurements & Calculations LVIDd: 4.7 cm LVOT diam: 2.1 cm LVIDs: 3.1 cm Ao root diam: 3.4 cm FS: 34.2 % asc Aorta Diam: 3.3 cm EPSS: 0.74 cm IVSd: 0.85 cm LVPWd: 0.63 cm LV toribio. diameter/BSA (cm/m^2): 2.4 LV sys. diameter/BSA (cm/m^2): 1.6 LA A2 area: 12.8 cm2 RA long axis: 4.5 cm LA A4 area: 11.1 cm2 RA area: 13.5 cm2 LA length (vol): 4.5 cm RA vol: 34.6 ml LA vol: 26.5 ml RA : 17.9 ml/m2 LA vol index: 13.7 ml/m2 IVC diam: 1.5 cm RVD1 (basal): 3.9 cm RVD2 (mid): 2.7 cm TAPSE: 1.7 cm Doppler Measurements & Calculations Ao V2 max: 129.7 cm/sec LVOT Max Sixto: 91.9 cm/sec Ao V2 mean: 91.5 cm/sec LV V1 max P.4 mmHg Ao max P.7 mmHg LV V1 VTI: 18.5 cm Ao mean P.8 mmHg CARRIE(I,D): 2.5 cm2 Ao V2 VTI: 25.4 cm CARRIE(V,D): 2.5 cm2 sev ratio: 0.73 CARRIE indexed to BSA (cm^2/m^2): 1.3 MV E max sixto: 41.6 cm/sec TR max sixto: 216.8 cm/sec MV A max sixto: 72.0 cm/sec TR max P.8 mmHg MV E/A: 0.58 PA V2 max: 76.9 cm/sec Med Peak E' Sixto: 8.5 cm/sec PA V2 mean: 56.3 cm/sec E/E' med: 4.9 PA mean P.4 mmHg Lat Peak E' Sixto: 14.8 cm/sec PA pr(Accel): 22.5 mmHg E/E' lat: 2.8 E/e' average: 3.9 MV dec time: 0.19 sec SV(LVOT): 64.6 ml Reading Physician:09:43 AM
== END ==
LOC: ECHO 06:44
PROVIDERS: PCP Nurse Practitioner; Referring Provider Nurse Practitioner; Visit Provider Nurse Practitioner
DX: I07.1 Rheumatic tricuspid insufficiency (principal); I10 Essential (primary) hypertension
CPT/HCPCS: 93306